=== PATIENT | female | born 1930 | race Caucasian/White ===

== ENCOUNTER → 2018-03-11 13:34 | Emergency (ER) | payer MEDICARE, MEDICAID ==
[2018-03-11 14:23] LABS: ABS Basophils 0.1 10^3/ul (0-0.2); ABS Eosinophils 0.1 10^3/ul (0-0.6); ABS Lymphocytes 1.9 10^3/ul (1.0-4.8); ABS Monocytes 0.6 10^3/ul (0-0.8); ABS Neutrophils 4.8 10^3/ul (1.5-7.7); ABS Nucleated RBC 0 10^3/ul; Eosinophil % 1.6 %; Hematocrit 44 % (35-47); Hemoglobin 14.6 g/dl (12.0-16.0); Lymphocyte % 25.5 %; Mean Corpuscular HGB Conc 33 g/dl (31-36); Mean Corpuscular Hemoglobin 30 pg (27-31); Mean Corpuscular Volume 92 fL (80-97); Mean Platelet Volume 7.9 fL (7.4-10.4); Nucleated Red Blood Cells % 0.1; Platelet Count 251 10^3/ul (150-450); Red Blood Count 4.81 10^6/ul (4.00-5.40); Red Cell Distribution Width 13 % (10.5-15); White Blood Count 7.5 10^3/ul (3.5-10.8)
[2018-03-11 14:38] LABS: Urine Appearance Clear; Urine Blood Negative (Negative); Urine Color Yellow; Urine Ketones Negative (Negative); Urine Protein Negative (Negative); Urine Specific Gravity 1.014 (1.010-1.030); Urine Urobilinogen Negative (Negative)
[2018-03-11 14:48] LABS: EGFR Non-African American 45.3 (>60)
--- NOTE | 2018-03-11 16:03 | ED ---
Neurological HPI - HPI Summary HPI Summary: Patient is a 88 y/o F presenting to ED via ambulance with concerns of possible seizure. Patient is a resident of [facility], staff called EMS. At baseline, patient is capable of walking and talking. Upon arrival, EMS states that patient had feet and arms twitching. EMS reports BG of 102, state that patient denies pain but did state that she did not feel good. EKG was normal per EMS. PMHx of malignant melanoma, tumor removal at right face. Upon arrival, patient is oriented to person only. On triage, pain is denied, nothing is noted to aggravate/alleviate Sx. Home medications and allergies are reviewed. - History of Current Complaint Chief Complaint: EDAltMentalStatus Stated Complaint: AMS Time Seen by Provider: 03/11/18 13:39 Hx Obtained From: Patient Onset/Duration: Sudden Onset, Still Present Timing: Constant Current Severity: None - pain denied Neurological Deficit Location: Generalized - feet and arms twitching Pain Intensity: 0 Pain Scale Used: 0-10 Numeric - 0/10 Character: Other: - feet and arms twitching, oriented only to person Aggravating: Nothing Alleviating: Nothing Associated Signs and Symptoms: Positive: Confusion - oriented only to person - Allergy/Home Medications Allergies/Adverse Reactions: Allergies Allergy/AdvReac Type Severity Reaction Status Date / Time No Known Allergies Allergy Verified 03/11/18 13:57 PMH/Surg Hx/FS Hx/Imm Hx Sensory History: Denies: Hx Legally Blind, Hx Deafness Opthamlomology History: Denies: Hx Legally Blind EENT History: Denies: Hx Deafness Infectious Disease History: No Infectious Disease History: Denies: Traveled Outside the [place] in Last 30 Days - Family History Known Family History: Negative: Blood Disorder - Social History Alcohol Use: unknown Substance Use Type: Reports: None Smoking Status (MU): Unknown if Ever Smoked Review of Systems Negative: Fever - on vitals, temp is 98.2 F Neurological: Other - feet and arms twitching, oriented only to person All Other Systems Reviewed And Are Negative: Yes Physical Exam - Summary Physical Exam Summary: Appearance: Well-appearing, Well-nourished, lying in bed comfortably Skin: Warm, dry, no obvious rash; healing surgical wound at left check with swelling and ecchymosis, conjunctiva inflammation associated with it Eyes: sclera anicteric, no conjunctival pallor ENT: mucous membranes moist, pharynx appears normal Neck: Supple, nontender Respiratory: Clear to auscultation, no signs of respiratory distress Cardiovascular: Normal S1, S2. No murmurs. Normal distal pulses in tibial and radial bilaterally. Abdomen: Soft, nontender, normal active bowel sounds present Musculoskeletal: Normal, Strength/ROM Intact Neurological: knows name, not place, no focal motor deficits. No aphasia, reflexes are normal; GCS 15, NIH 0 Psychiatric: affect is normal, does not appear anxious or depressed Triage Information Reviewed: Yes Vital Signs On Initial Exam: Initial Vitals Temp Pulse Resp BP Pulse Ox 98.2 F 64 20 170/76 99 03/11/18 13:50 03/11/18 13:50 03/11/18 13:50 03/11/18 13:50 03/11/18 13:50 Vital Signs Reviewed: Yes - Kris Coma Scale Best Eye Response: 4 - Spontaneous Best Motor Response: 6 - Obeys Commands Best Verbal Response: 5 - Oriented Coma Scale Total: 15 Diagnostics - Vital Signs Vital Signs Temp Pulse Resp BP Pulse Ox 03/11/18 15:00 66 20 100 03/11/18 14:54 66 17 153/65 99 03/11/18 14:52 66 19 152/72 99 03/11/18 14:25 66 19 167/80 99 03/11/18 14:00 63 17 100 03/11/18 13:54 64 170/76 99 03/11/18 13:52 63 98 03/11/18 13:50 98.2 F 64 20 170/76 99 - Laboratory Lab Results: Lab Results 03/11/18 03/11/18 03/11/18 Range/Units 14:07 14:07 14:07 WBC 7.5 (3.5-10.8) 10^3/ul RBC 4.81 (4.00-5.40) 10^6/ul Hgb 14.6 (12.0-16.0) g/dl Hct 44 (35-47) % MCV 92 (80-97) fL MCH 30 (27-31) pg MCHC 33 (31-36) g/dl RDW 13 (10.5-15) % Plt Count 251 (150-450) 10^3/ul MPV 7.9 (7.4-10.4) fL Neut % (Auto) 63.6 % Lymph % (Auto) 25.5 % Troup % (Auto) 7.6 % Eos % (Auto) 1.6 % Baso % (Auto) 1.7 % Absolute Neuts (auto) 4.8 (1.5-7.7) 10^3/ul Absolute Lymphs (auto) 1.9 (1.0-4.8) 10^3/ul Absolute Monos (auto) 0.6 (0-0.8) 10^3/ul Absolute Eos (auto) 0.1 (0-0.6) 10^3/ul Absolute Basos (auto) 0.1 (0-0.2) 10^3/ul Absolute Nucleated RBC 0 10^3/ul Nucleated RBC % 0.1 Sodium 143 (135-145) mmol/L Potassium 4.3 (3.5-5.0) mmol/L Chloride 106 (101-111) mmol/L Carbon Dioxide 28 (22-32) mmol/L Anion Gap 9 (2-11) mmol/L BUN 26 H (6-24) mg/dL Creatinine 1.13 H (0.51-0.95) mg/dL Est GFR ( Amer) 54.9 (>60) Est GFR (Non-Af Amer) 45.3 (>60) BUN/Creatinine Ratio 23.0 H (8-20) Glucose 77 (70-100) mg/dL Lactic Acid 1.3 (0.5-2.0) mmol/L Calcium 10.4 H (8.6-10.3) mg/dL Total Bilirubin 0.40 (0.2-1.0) mg/dL AST 11 L (13-39) U/L ALT 7 (7-52) U/L Alkaline Phosphatase 92 (34-104) U/L Troponin I 0.00 (<0.04) ng/mL Total Protein 6.8 (6.4-8.9) g/dL Albumin 3.9 (3.2-5.2) g/dL Globulin 2.9 (2-4) g/dL Albumin/Globulin Ratio 1.3 (1-3) Urine Color Urine Appearance Urine pH (5-9) Ur Specific Smilax (1.010-1.030) Urine Protein (Negative) Urine Ketones (Negative) Urine Blood (Negative) Urine Nitrate (Negative) Urine Bilirubin (Negative) Urine Urobilinogen (Negative) Ur Leukocyte Esterase (Negative) Urine Glucose (Negative) 03/11/18 Range/Units 14:23 WBC (3.5-10.8) 10^3/ul RBC (4.00-5.40) 10^6/ul Hgb (12.0-16.0) g/dl Hct (35-47) % MCV (80-97) fL MCH (27-31) pg MCHC (31-36) g/dl RDW (10.5-15) % Plt Count (150-450) 10^3/ul MPV (7.4-10.4) fL Neut % (Auto) % Lymph % (Auto) % Troup % (Auto) % Eos % (Auto) % Baso % (Auto) % Absolute Neuts (auto) (1.5-7.7) 10^3/ul Absolute Lymphs (auto) (1.0-4.8) 10^3/ul Absolute Monos (auto) (0-0.8) 10^3/ul Absolute Eos (auto) (0-0.6) 10^3/ul Absolute Basos (auto) (0-0.2) 10^3/ul Absolute Nucleated RBC 10^3/ul Nucleated RBC % Sodium (135-145) mmol/L Potassium (3.5-5.0) mmol/L Chloride (101-111) mmol/L Carbon Dioxide (22-32) mmol/L Anion Gap (2-11) mmol/L BUN (6-24) mg/dL Creatinine (0.51-0.95) mg/dL Est GFR ( Amer) (>60) Est GFR (Non-Af Amer) (>60) BUN/Creatinine Ratio (8-20) Glucose (70-100) mg/dL Lactic Acid (0.5-2.0) mmol/L Calcium (8.6-10.3) mg/dL Total Bilirubin (0.2-1.0) mg/dL AST (13-39) U/L ALT (7-52) U/L Alkaline Phosphatase (34-104) U/L Troponin I (<0.04) ng/mL Total Protein (6.4-8.9) g/dL Albumin (3.2-5.2) g/dL Globulin (2-4) g/dL Albumin/Globulin Ratio (1-3) Urine Color Yellow Urine Appearance Clear Urine pH 6.0 (5-9) Ur Specific Smilax 1.014 (1.010-1.030) Urine Protein Negative (Negative) Urine Ketones Negative (Negative) Urine Blood Negative (Negative) Urine Nitrate Negative (Negative) Urine Bilirubin Negative (Negative) Urine Urobilinogen Negative (Negative) Ur Leukocyte Esterase Negative (Negative) Urine Glucose Negative (Negative) Result Diagrams: 03/11/18 14:07 03/11/18 14:07 Lab Statement: Any lab studies that have been ordered have been reviewed, and results considered in the medical decision making process. - CT BRAIN CT CT Interpretation Completed By: Radiologist Summary of CT Findings: IMPRESSION: 1. Age-appropriate findings include involutional changes as well as evidence of chronic. microvascular disease. There is a more focal area of hypoattenuation involving the left. frontal lobe and basal ganglia which could be a more acute focus of infarction and lacunar. infarction, respectively. There are no prior brain CTs for comparison to comment on. chronicity of this appearance. The patient is exhibiting focal neurologic deficits. superior characterization can be made with MRI of the brain. 2. Incidentally noted is bilateral cerumen impaction of the external auditory canals. Please correlate to auditory examination and/or direct visualization. This report was reviewed by ED physician. - EKG 1355 Cardiac Rate: NL - rate of 63 bpm EKG Rhythm: Sinus Rhythm Summary of EKG Findings: Normal EKG: NSR at 63 BPM, P waves, QRS complex, and T waves are within normal limits, T waves and intervals are normal, no ischemic changes. This is a normal EKG NIH Scale - NIH Scale Level of Consciousness: Alert/Keenly Responsive Ask Patient the Month and His/Her Age: Both Correct Ask Pt to Open/Close Eyes and Car Body Mechanic/Release Non-Paretic Hand: Both Correctly Best Gaze (Only Horizontal Eye Movement): Normal Visual Field Testing: No Visual Loss Facial Paresis-Pt to Smile & Close Eyes or Grimace Symmetry: Normal/Symmetrical Motor Function - Right Arm: No Drift-Holds 10 Seconds Motor Function - Left Arm: No Drift-Holds 10 Seconds Motor Function - Right Leg: No Drift-Holds 10 Seconds Motor Function - Left Leg: No Drift-Holds 10 Seconds Limb Ataxia-Must be out of Proportion to Weakness Present: Absent Sensory (Use Pinprick to Test Arms/Legs/Trunk/Face): Normal Best Language (Describe Picture, Name Items): No Aphasia Dysarthria (Read Several Words): Normal Extinction and Inattention: No Abnormality Total Score: 0 Course/Dx - Course Course Of Treatment: Patient is a 88 y/o F presenting to ED via ambulance with concerns of possible seizure. Patient is a resident of [facility], staff called EMS. At baseline, patient is capable of walking and talking. Upon arrival, EMS states that patient had feet and arms twitching. EMS reports BG of 102, state that patient denies pain but did state that she did not feel good. EKG was normal per EMS. PMHx of malignant melanoma, tumor removal at right face. Upon arrival, patient is oriented to person only. On physical exam, healing surgical wound in left check with swelling and ecchymosis, conjunctiva inflammation associated with it, knows name, not place, no focal motor deficits. No aphasia, reflexes are normal. Labs showed BUN 26, creatinine 1.13, BUN/creatinine 23, AST 11, trop 0. UA negative. Normal EKG: NSR at 63 BPM, P waves, QRS complex, and T waves are within normal limits, T waves and intervals are normal, no ischemic changes. This is a normal EKG. BRAIN CT IMPRESSION: 1. Age- appropriate findings include involutional changes as well as evidence of chronic. microvascular disease. There is a more focal area of hypoattenuation involving the left. frontal lobe and basal ganglia which could be a more acute focus of infarction and lacunar. infarction, respectively. There are no prior brain CTs for comparison to comment on. chronicity of this appearance. The patient is exhibiting focal neurologic deficits. superior characterization can be made with MRI of the brain. 2. Incidentally noted is bilateral cerumen impaction of the external auditory canals. Please correlate to auditory examination and/or direct visualization. Patient will be discharged back to [facility]. 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 Her son is in agreement with this plan. - Diagnoses Provider Diagnoses: Syncope Discharge - Sign-Out/Discharge Documenting (check all that apply): Patient Departure - discharge - Discharge Plan Condition: Improved Disposition: HOME Patient Education Materials: Syncope (ED) Referrals: [facility] [Outside] Additional Instructions: Return to ED for any new or worsening symptoms. - Billing Disposition and Condition Condition: IMPROVED Disposition: Home - Attestation Statements Document Initiated by Karen: Yes Documenting Scribe: BRANNON BALBUENA Provider For Whom Karen is Documenting (Include Credential): MANGO MELVIN MD Scribe Attestation: IBRANNON , scribed for MANGO MELVIN MD on 03/12/18 at 1017. Scribe Documentation Reviewed: Yes Provider Attestation: The documentation as recorded by the BRANNON colmenares accurately reflects the service I personally performed and the decisions made by me, MANGO MELVIN MD Status of Scribe Document: Viewed
[2018-03-11 16:14] VITALS: BP 140/61
== END | disposition home or self-care (01) ==
LOC: ED 13:34
DX: R55 Syncope and collapse (principal); R25.3 Fasciculation; R41.82 Altered mental status, unspecified; H61.23 Impacted cerumen, bilateral
CPT/HCPCS: 36415; 70450; 80053; 81003; 83605; 84484; 85025; 93005; 99284

== ENCOUNTER 2018-05-21 12:46 | Inpatient (IN) | payer MEDICARE, MEDICAID ==
[2018-05-21] MEDS ORDERED: Albuterol 0.5% CONC NEB.SOL* 5 MG/ML 20 ml BOT INH ONE (13:01)
--- NOTE | 2018-05-21 13:01 | ED ---
Altered Mental Status - HPI Summary HPI Summary: Pt is an 88 y/o F presenting to the ED brought in by EMS for altered mental status. LEVEL 5 CAVEAT: Full history and physical are limited due to pts altered mental status. Per EMS, staff at [facility] and the pts grandson noticed she was not eating this morning like normal or conversing as usual, and her facial droop was different than normal. EMS noted that she was struggling to breathe when supine, but breathing eased a bit when she sat up. - History Of Current Complaint Stated Complaint: ALTERED LEVEL OF CONCIOUSNESS Hx Obtained From: Patient, EMS Hx From Patient Unobtainable Due To: Altered Mental Status Last Known Well Date: unknown Onset/Duration: Still Present Timing: Constant, Lasting Hours Severity Initially: Moderate Severity Currently: Moderate Character: Confusion Aggravating Factor(s): Unknown Alleviating Factor(s): Nothing - Allergies/Home Medications Allergies/Adverse Reactions: Allergies Allergy/AdvReac Type Severity Reaction Status Date / Time No Known Allergies Allergy Verified 05/21/18 14:08 Home Medications: Home Medications Acetaminophen TAB* [Tylenol TAB*] 650 mg PO Q6H PRN 05/21/18 [History Confirmed 05/21/18] Bacitracin OPHTH.OINT* 1 applic BOTH EYES TID 05/21/18 [History Confirmed ] DULoxetine DR CAP* [Cymbalta CAP*] 30 mg PO DAILY 05/21/18 [History Confirmed ] Dextran/Hypromellose/Glycerin [Genteal Tears Liquid Drop 0.1-0.2-0.3 %] 1 drop LEFT EYE QID 05/21/18 [History Confirmed 05/21/18] Donepezil TAB* [Aricept 5 MG TAB*] 10 mg PO BEDTIME 05/21/18 [History Confirmed 05/21/18] Ergocalciferol CAP* [Drisdol CAP*] 50,000 unit PO WEEKLY 05/21/18 [History Confirmed 05/21/18] Hypromellose [Genteal Severe] 0.3 % LEFT EYE BEDTIME 05/21/18 [History Confirmed 05/21/18] Memantine TAB* [Namenda TAB*] 10 mg PO DAILY 05/21/18 [History Confirmed ] Methylcobalamine (NF) [B-12] 1,000 mcg SL MOWEFR 05/21/18 [History Confirmed ] Metoprolol Succinate XL TAB* [Toprol XL TAB*] 100 mg PO DAILY 05/21/18 [History Confirmed 05/21/18] Oseltamivir CAP* [Tamiflu CAP*] 30 mg PO DAILY 05/21/18 [History Confirmed 05/21] Simethicone TAB* [Mylicon TAB*] 80 mg PO Q12H PRN 05/21/18 [History Confirmed ] Valsartan TAB* [Diovan TAB*] 160 mg PO DAILY 05/21/18 [History Confirmed ] amLODIPine TAB* [Norvasc 5 mg TAB*] 10 mg PO DAILY 05/21/18 [History Confirmed 05/21/18] metFORMIN* [Glucophage 500 MG TAB *] 500 mg PO DAILY 05/21/18 [History Confirmed 05/21/18] oxyCODONE/Acetamin 5/325 MG* [Percocet 5/325 TAB*] 1 tab PO Q8H PRN 05/21/18 [ History Confirmed 05/21/18] PMH/Surg Hx/FS Hx/Imm Hx Previously Healthy: Yes Sensory History: Denies: Hx Legally Blind Opthamlomology History: Denies: Hx Legally Blind EENT History: Denies: Hx Deafness - Family History Known Family History: Negative: Blood Disorder - Social History Alcohol Use: unknown Substance Use Type: Reports: None Smoking Status (MU): Unknown if Ever Smoked Review of Systems Negative: Fever Positive: Weakness All Other Systems Reviewed And Are Negative: No Physical Exam - Summary Physical Exam Summary: Appearance: Ill-appearing elderly woman sitting up on stretcher Skin: Warm, dry, no obvious rash Eyes: sclera anicteric, no conjunctival pallor ENT: mucous membranes moist, pharynx appears normal Neck: Supple, nontender Respiratory: Diffuse rhonchi and wheezing bilaterally, in mild to moderate respiratory distress, tachypnic, somewhat labored breathing Cardiovascular: Normal S1, S2. No murmurs. Normal distal pulses in tibial and radial bilaterally. Abdomen: Soft, nontender, normal active bowel sounds present Musculoskeletal: Normal, Strength/ROM Intact Neurological: A&Ox3, awake and alert, mentation is normal, speech is fluent and appropriate. No focal motor deficit, smiles without discernible asymmetry in facial muscles, no drift in arms, seems diffusely weak. Psychiatric: affect is normal, does not appear anxious or depressed Triage Information Reviewed: Yes Vital Signs Reviewed: Yes Completion Of Physical Exam Limited Due To: Level 5 Diagnostics - Laboratory Result Diagrams: 05/27/18 05:00 05/27/18 05:00 Lab Statement: Any lab studies that have been ordered have been reviewed, and results considered in the medical decision making process. - Radiology CXR Radiology Interpretation Completed By: Radiologist Summary of Radiographic Findings: Hyperinflation, consistent with COPD. No active cardiopulmonary disease. ED physician has reviewed this report. - EKG 1312 Cardiac Rate: NL EKG Rhythm: Sinus Rhythm ST Segment: Normal Ectopy: None Summary of EKG Findings: No ischemic changes. Altered Mental Statu Course/Dx - Course Course Of Treatment: Pt is an 88 y/o F presenting to the ED brought in by EMS for altered mental status. LEVEL 5 CAVEAT: Full history and physical are limited due to pts altered mental status. Per EMS, staff at [facility] and the pts grandson noticed she was not eating this morning like normal or conversing as usual, and her facial droop was different than normal. Spoke with the patient's grandson, Stanley, who is her healthcare proxy, and he stated that he does not want intubation or CPR done. CXR shows hyperinflation c/w COPD, and EKG shows NSR. - Diagnoses Provider Diagnoses: Altered mental status Discharge - Sign-Out/Discharge Documenting (check all that apply): Patient Departure - Discharge Plan Condition: Fair Disposition: ADMITTED TO [facility] - Billing Disposition and Condition Condition: FAIR Disposition: Admitted to [facility] - Attestation Statements Document Initiated by Scribe: Yes Documenting Scribe: Katie Gaspar Provider For Whom Karen is Documenting (Include Credential): Virgilio Salcedo MD. Scribe Attestation: Katie Kyle, valdezed for Virgilio Salcedo MD. on 05/27/18 at 1631. Scribe Documentation Reviewed: Yes Provider Attestation: The documentation as recorded by the scribe, Katie Gaspar accurately reflects the service I personally performed and the decisions made by me, Virgilio Salcedo MD. Status of Scribe Document: Viewed Consult Consult: [id number] - Spoke with Dr. Nevarez who will be the accepting physician for the pt to [facility].
[2018-05-21 13:29] LABS: ABS Basophils 0.1 10^3/ul (0-0.2); ABS Eosinophils 0.1 10^3/ul (0-0.6); ABS Lymphocytes 1.6 10^3/ul (1.0-4.8); ABS Monocytes 0.6 10^3/ul (0-0.8); ABS Neutrophils 8.3 10^3/ul (1.5-7.7); ABS Nucleated RBC 0 10^3/ul; Eosinophil % 1.2 %; Hematocrit 48 % (35-47); Hemoglobin 16.1 g/dl (12.0-16.0); Lymphocyte % 14.8 %; Mean Corpuscular HGB Conc 34 g/dl (31-36); Mean Corpuscular Hemoglobin 31 pg (27-31); Mean Corpuscular Volume 91 fL (80-97); Mean Platelet Volume 7.8 fL (7.4-10.4); Nucleated Red Blood Cells % 0.4; Platelet Count 241 10^3/ul (150-450); Red Blood Count 5.26 10^6/ul (4.00-5.40); Red Cell Distribution Width 14 % (10.5-15); White Blood Count 10.7 10^3/ul (3.5-10.8)
[2018-05-21 13:53] LABS: Albumin 4.5 g/dL (3.2-5.2); Albumin/Globulin Ratio 1.4 (1-3); BUN/Creatinine Ratio 23.6 (8-20); Calcium 10.5 mg/dL (8.6-10.3); EGFR African American 49.7 (>60); EGFR Non-African American 41.1 (>60); Globulin 3.2 g/dL (2-4); Potassium 4.4 mmol/L (3.5-5.0); Total Bilirubin 0.5 mg/dL (0.2-1.0); Total Protein 7.7 g/dL (6.4-8.9)
[2018-05-21] MEDS ORDERED: Azithromycin IV(*) 500 MG in NS 0.9% 250 ML* 250 ML IVPB ONE (13:55)
[2018-05-21] MEDS ORDERED: methylPREDNISolone 125 MG* 2 ML VIAL IV ONE (13:55)
[2018-05-21] MEDS ORDERED: cefTRIAXone(*) 1 GM in NS 0.9% 50 ML* 50 ML IVPB ONE (13:55)
[2018-05-21 14:15] LABS: Influenza A Molecular NEGATIVE (Negative); Influenza B Molecular NEGATIVE (Negative)
[2018-05-21] MEDS ORDERED: Acetaminophen TAB* 325 MG PO PRN (17:09)
[2018-05-21] MEDS ORDERED: Albuterol 2.5 MG/3 ML NEB.SOL* (0.083%) INH PRN (17:09)
[2018-05-21] MEDS ORDERED: Simethicone TAB* 80 MG TAB.CHEW PO PRN (17:13)
[2018-05-21] MEDS ORDERED: Dextrose 50% Syringe 50 ML* 25 GM/50 ML SYRINGE IV PUSH PRN (17:19)
[2018-05-21] MEDS ORDERED: METHYLCOBALAMINE SL SCH (18:00)
[2018-05-21] MEDS: NS 0.9% 1000 ML** 1,000 ML IV SCH (19:07)
[2018-05-21] MEDS: Donepezil TAB* 5 MG PO SCH (21:10)
[2018-05-21] MEDS: Artificial Tears* 15 ML BTL LEFT EYE SCH (21:12)
[2018-05-21] MEDS: Bacitracin OPHTH.OINT* 3.5 GM BOTH EYES SCH (21:12)
--- NOTE | 2018-05-21 23:41 | HP ---
HISTORY AND PHYSICAL: ADDENDUM: I am attempting to obtain history and physical from [facility] to obtain further information about the patient's past medical history at this time. The records were currently unavailable. SUE VIOLET, ANTENNA DESIGN ENGINEER [id number]/[facility] #: [id number] [facility]OSPITALCecilia
[2018-05-21] MEDS: Nystatin TOP POWDER* 15 GM BTL TOPICAL SCH (23:45)
[2018-05-21] MEDS: Heparin VIAL(*) 5000 UNITS/ML VIAL (FIVE THOUSAND) SUBCUT SCH (23:45)
--- NOTE | 2018-05-22 02:02 | HP ---
ADDENDUM NOW INCLUDED ON THIS REPORT HISTORY AND PHYSICAL: DATE OF ADMISSION: 05/21/18 PRIMARY CARE PROVIDER: Dr. Holley. ATTENDING PHYSICIAN WHILE IN THE HOSPITAL: Dr. Maria Elena Nevarez * (dictated by Luci Boss NP). CHIEF COMPLAINT: Altered mental status. HISTORY OF PRESENT ILLNESS: History of present illness was obtained from ER and nurse at [facility]. Per the ER record, Ms. Guajardo is an 88-year-old female who is difficult to get a full history and physical due to the patient's altered mental status. Per EMS, staff at [facility], and the patient's grandson noted that the patient was not eating this morning like normal or conversing as usual and her facial droop was different from normal. EMS noted that she was struggling to breathe when she was supine, but the breathing eased a bit when she sat up. Per the staff at [facility], the patient has had a cough x2 days with increased sputum and had decreased responsiveness today, so she was sent for further evaluation due to the concern of pneumonia due to her cough and congestion. It was also reported that the patient had some right facial drooping. The patient does have chronic left facial drooping as she recently had surgical removal of basal cell carcinoma to the left side of her face giving her left eye droop and slight left facial droop. Per staff at [facility] , the patient just had decreased responsiveness today and due to the cough and low-grade fever, she was sent for further evaluation. PAST MEDICAL HISTORY: Past medical history was obtained from [facility] record. She has a history of: 1. Dementia. 2. Hypertension. 3. History of CVA. 4. Type 2 diabetes. PAST SURGICAL HISTORY: Unknown. MEDICATIONS: Home medications were obtained from [facility] medication record. 1. Simethicone 80 mg p.o. q.12 hours as needed. 2. Percocet 1 tab p.o. q.8 hours as needed. 3. Acetaminophen 650 mg p.o. q.6 hours as needed. 4. Tamiflu 30 mg p.o. daily x2 more doses. 5. Gentle Tears 1 drop to the left eye 4 times a day. 6. GenTeal Severe 0.3% left eye at bedtime. 7. Bacitracin ointment apply to both eyes t.i.d.. 8. isdol cap 50,000 units p.o. weekly. 9. Vitamin B12 1000 mcg Saturday, Saturday, and Saturday. 10. Diovan 160 mg p.o. daily. 11. Metoprolol succinate 100 mg p.o. daily. 12. Glucophage 500 mg p.o. daily. 13. Namenda 10 mg p.o. daily. 14. Norvasc 10 mg p.o. daily. 15. Cymbalta 30 mg p.o. daily. 16. Aricept 10 mg at bedtime. ALLERGIES: No known drug allergies. FAMILY HISTORY: Unknown. SOCIAL HISTORY: Unknown. She does have a DNR, MOLST form on her transfer record from [facility]. Her healthcare proxies are her sons, Gilson Guajardo Sr. and Gilson Guajardo Jr. REVIEW OF SYSTEMS: Unobtainable due to the patient's level of altered mental status. The patient does open eyes to name and does respond no when asked if she has any pain, but closes her eyes and drifts off to sleep. She appears to be very fatigued. PHYSICAL EXAMINATION CONSTITUTIONAL: Ms. Guajardo is an elderly female resting on the stretcher in the emergency room. She does not appear to be in any acute respiratory distress. She is lethargic. She does wake to verbal stimuli and does open her eyes. She follows some commands. HEENT: Head is atraumatic, normocephalic. Eyes: EOMs are intact. Sclerae are anicteric and not pale. Oral mucosa appear to be moist. NECK: Supple. LUNGS: Diminished throughout bilaterally with a few scattered rhonchi in the bases. She does have a moist cough. CARDIAC: S1, S2. Regular rate and rhythm. No murmurs, rubs, or gallops. ABDOMEN: Soft. There is no grimacing with palpation of the abdomen. Bowel sounds are present x4. EXTREMITIES: She can move all 4 extremities, but appears to be weak. SKIN: Intact. NEUROLOGIC: She is lethargic. She does open her eyes to verbal stimuli. She does follow some commands. She was able to raise her arms up and hold them. She does have a tremor noted to the left arm. There was no pronator drift. Orientation, unable to determine due to the patient's altered mental status. DIAGNOSTIC STUDIES AND LABORATORY DATA: WBCs are 10.7, RBCs 5.26, hemoglobin 16.1, hematocrit was 48, platelet count was 241. Venous blood gas, pH was 7.31 , venous pCO2 was 57, pO2 was less than 38, HCO3 was 24.4, O2 saturation was 43.7. Sodium 136, potassium 4.4, chloride 102, carbon dioxide was 29, anion gap was 5, BUN 29, creatinine 1.23, glucose was 92, lactic acid 1.2, calcium was 10.5. ASTs were 12, ALTs were 6, alkaline phosphatase was 115, troponin was 0.00. Flu A and B were negative. The patient had a chest x-ray. Hyperinflation consistent with COPD, no active cardiopulmonary disease was seen. She did have a CT of the brain, which showed chronic findings similar to 03/11/18. CT of the brain without CT-apparent acute intracranial abnormality. No evidence of intracranial hemorrhage. She had an electrocardiogram which showed sinus rhythm at a rate of 78. ASSESSMENT AND PLAN: Ms. Guajardo is an 88-year-old female with past medical history significant for dementia, hypertension, history of cerebrovascular accident, and type diabetes, who presented to the emergency room with altered mental status, cough, and congestion for 2 days. She will be admitted inpatient for: 1. Altered mental status. I suspect this is related to underlying pneumonia. The patient does have a harsh moist cough and was hypoxic on room air. The patient was placed on nasal cannula to maintain O2 saturations greater than 90% . There was initially report of right facial droop, which is not apparent at the time of evaluation. I did obtain a CT of the brain, which showed no acute intracranial hemorrhage or any acute changes. The patient does have chronic left-sided facial droop per staff at [facility] due to recent surgery for basal cell carcinoma. She does have lower eyelid droop on the left. 2. Pneumonia. I will continue with nebulizer treatments. I will give her azithromycin, ceftriaxone to treat her pneumonia. I will get a urine for legionella and S. pneumoniae as well as a UA and urine culture, which is currently pending. 3. Hypertension. Continue on Norvasc as previously prescribed. 4. Dementia. Will continue on Aricept and Namenda as previously prescribed. 5. Diabetes. I will place her on lispro sliding scale with Accu-Cheks a.c. 6. Recent basal cell carcinoma surgery to the left face. We will continue with bacitracin ointment to both eyes t.i.d. as well as eyedrops as previously prescribed. 7. FEN. She can have a consistent carb diet. 8. Code status. She is a DNR/DNI per the grandson, Gilson JangJr clayton. 9. DVT prophylaxis. I will place her on heparin subcu. TIME SPENT: Time spent on this admission was 60 minutes, greater than half that time was spent at the bedside performing my physical exam, obtaining the history and physical from [facility], and emergency room records, the other half of the time was spent implementing my plan of care. I have discussed this with my attending, Dr. Maria Elena Nevarez. She is in agreement with my plan. LUCI BOSS NP ADDENDUM: I am attempting to obtain history and physical from [facility] to obtain further information about the patient's past medical history at this time. The records were currently unavailable. LUCI BOSS NP [id number]/CPS #: [id number]/CPS #: [id number] ALICIA
[2018-05-22 02:32] LABS: Urine Appearance Clear; Urine Bilirubin Negative (Negative); Urine Blood Negative (Negative); Urine Color Yellow; Urine Glucose Negative (Negative); Urine Ketones Negative (Negative); Urine Nitrite Negative (Negative); Urine Protein Negative (Negative); Urine Specific Gravity 1.016 (1.010-1.030); Urine Urobilinogen Negative (Negative)
[2018-05-22] MEDS: Heparin VIAL(*) 5000 UNITS/ML VIAL (FIVE THOUSAND) SUBCUT SCH ×3 (05:17→23:06)
[2018-05-22] MEDS: NS 0.9% 1000 ML** 1,000 ML IV SCH (05:22)
[2018-05-22 06:59] LABS: ABS Basophils 0 10^3/ul (0-0.2); ABS Eosinophils 0 10^3/ul (0-0.6); ABS Lymphocytes 0.9 10^3/ul (1.0-4.8); ABS Monocytes 0.3 10^3/ul (0-0.8); ABS Neutrophils 14.8 10^3/ul (1.5-7.7); ABS Nucleated RBC 0 10^3/ul; Eosinophil % 0 %; Hematocrit 43 % (35-47); Hemoglobin 13.9 g/dl (12.0-16.0); Lymphocyte % 5.5 %; Mean Corpuscular HGB Conc 32 g/dl (31-36); Mean Corpuscular Hemoglobin 30 pg (27-31); Mean Corpuscular Volume 92 fL (80-97); Mean Platelet Volume 8.5 fL (7.4-10.4); Nucleated Red Blood Cells % 0.1; Platelet Count 223 10^3/ul (150-450); Red Blood Count 4.71 10^6/ul (4.00-5.40); Red Cell Distribution Width 14 % (10.5-15)
[2018-05-22 07:16] LABS: BUN/Creatinine Ratio 29.3 (8-20); Calcium 9.6 mg/dL (8.6-10.3); EGFR African American 53.2 (>60); Potassium 4.9 mmol/L (3.5-5.0)
[2018-05-22] MEDS: Insulin LISPRO* 1 UNITS UNIT SUBCUT SCH ×3 (09:09→19:48)
[2018-05-22] MEDS: Artificial Tears* 15 ML BTL LEFT EYE SCH ×4 (09:10→23:08)
[2018-05-22] MEDS: Memantine TAB* 10 MG PO SCH (09:11)
[2018-05-22] MEDS: Oseltamivir CAP* 30 MG CAP PO SCH (09:11)
[2018-05-22] MEDS: Metoprolol Succinate XL TAB* 100 MG PO SCH (09:11)
[2018-05-22] MEDS: Valsartan TAB* 160 MG PO SCH (09:11)
[2018-05-22] MEDS: Bacitracin OPHTH.OINT* 3.5 GM BOTH EYES SCH ×3 (09:11→23:08)
[2018-05-22] MEDS: DULoxetine DR CAP* 30 MG CAP.DR PO SCH (09:12)
[2018-05-22] MEDS: amLODIPine TAB* 5 MG PO SCH (09:12)
[2018-05-22] MEDS: Nystatin TOP POWDER* 15 GM BTL TOPICAL SCH ×2 (09:12→23:06)
[2018-05-22] MEDS ORDERED: Furosemide IV* 10 MG/ML VIAL (40 MG) ONE (14:19)
--- NOTE | 2018-05-22 14:44 | PN ---
Subjective Date of Service: 05/22/18 Interval History: Pt is unable to tell me how she is feeling. I was called emergently by the patient's nurse that the patient was hypoxic with an O2 saturation in the 60's on 10L O2. Objective Active Medications: Acetaminophen (Tylenol Tab*) 650 mg PO Q4H PRN PRN Reason: FEVER/PAIN Albuterol (Ventolin 2.5 Mg/3 Ml Neb.Janel*) 2.5 mg INH [id number] AWAKE PRN PRN Reason: sob/wheezing Amlodipine Besylate (Norvasc Tab*) 10 mg PO DAILY [facility] Last Admin: 05/22/18 09:12 Dose: 10 mg Bacitracin (Bacitracin Ophth.Oint*) 1 applic BOTH EYES TID [facility] Last Admin: 05/22/18 09:11 Dose: 1 drop Dextrose (D50w Syringe 50 Ml*) 12.5 gm IV PUSH .FOR FS < 60 - SS PRN PRN Reason: FS < 60 Donepezil HCl (Aricept Tab*) 10 mg PO BEDTIME [facility] Last Admin: 05/21/18 21:10 Dose: Not Given Duloxetine HCl (Cymbalta Cap*) 30 mg PO DAILY [facility] Last Admin: 05/22/18 09:12 Dose: 30 mg Heparin Sodium (Porcine) (Heparin Vial(*)) 5,000 units SUBCUT Q8HR [facility] Last Admin: 05/22/18 05:17 Dose: 5,000 units Ceftriaxone Sodium 1 gm/ (Sodium Chloride) 50 mls @ 200 mls/hr IVPB Q24H [facility]ID Azithromycin 500 mg/ Sodium (Chloride) 250 mls @ 250 mls/hr IVPB Q24H [facility] Insulin Human Lispro (Humalog*) 0 units SUBCUT AC [facility]; Protocol Last Admin: 05/22/18 13:04 Dose: 1 unit Memantine (Namenda Tab*) 10 mg PO DAILY [facility] Last Admin: 05/22/18 09:11 Dose: 10 mg Metoprolol Succinate (Toprol Xl Tab*) 100 mg PO DAILY [facility] Last Admin: 05/22/18 09:11 Dose: 100 mg Natural Dietary Supplement (B-12) 1,000 mcg SL MOWEFR [facility] Last Admin: 05/21/18 19:07 Dose: Not Given Nystatin (Nystatin Top Powder*) 1 applic TOPICAL BID [facility] Last Admin: 02/14/19 09:12 Dose: 1 applic Oseltamivir Phosphate (Tamiflu Cap*) 30 mg PO DAILY [facility] Stop: 05/23/18 09:01 Last Admin: 05/22/18 09:11 Dose: 30 mg Polyvinyl Alcohol (Polyvinyl Alcohol 1.4% Opth*) 1 drop LEFT EYE QID [facility] Last Admin: 05/22/18 13:04 Dose: 1 drop Simethicone (Mylicon Tab*) 80 mg PO Q12H PRN PRN Reason: INDIGESTION Valsartan (Diovan Tab*) 160 mg PO DAILY [facility] Last Admin: 05/22/18 09:11 Dose: 160 mg Vital Signs - 8 hr 05/22/18 05/22/18 07:35 08:11 Temperature 98.6 F Pulse Rate 78 Respiratory 17 16 Rate Blood Pressure 116/49 (mmHg) O2 Sat by Pulse 94 Oximetry Oxygen Devices in Use Now: Simple Face Mask Appearance: Elderly female sitting up in bed, with central facial cyanosis, not tachypnic, and in no distress. Eyes: No Scleral Icterus Ears/Nose/Mouth/Throat: Mucous Membranes Moist Respiratory: Symmetrical Chest Expansion and Respiratory Effort, - - diffuse crackles with rattling breath sounds heard without the stethoscope Cardiovascular: NL Sounds; No Murmurs; No JVD, No Edema, - - tachycardic Abdominal: NL Sounds; No Tenderness; No Distention Extremities: No Clubbing, Cyanosis Skin: No Rash or Ulcers Neurological: - - alert, does not speak much Result Diagrams: 05/22/18 06:18 05/22/18 06:18 Microbiology and Other Data: Microbiology 05/21/18 12:47 Aerobic Blood Culture - Preliminary Blood Venous No Growth Day 1 Anaerobic Blood Culture - Preliminary No Growth Day 1 05/21/18 13:21 Aerobic Blood Culture - Preliminary Blood Venous No Growth Day 1 Anaerobic Blood Culture - Preliminary No Growth Day 1 05/22/18 02:00 Legionella Urinary Antigen - Final Urine Negative Legionella Antigen Streptococcus pneumoniae Ag Screen - Final Negative S. pneumo Antigen 05/21/18 20:12 Nasal Screen MRSA (PCR) - Final Nasal Mrsa Not Detected 05/21/18 13:50 Influenza Types A,B Antigen - Final Nasopharyngeal Specimen received for Influenza A/B Molecular testing Assess/Plan/Problems-Billing Ms Guajardo is an 88 yo F who has a h/o dementia, HTN and type II DM who presented to the ER with c/o cough, fever and AMS and was admitted for treatment of possible pneumonia. - Patient Problems (1) Acute CHF Current Visit: Yes Status: Acute Code(s): I50.9 - HEART FAILURE, UNSPECIFIED SNOMED Code(s): 98039013 Comment: Pt this afternoon was found to be in probable acute CHF. IV lasix 40mg and BiPAP initiated. Transferred to the ICU for closer nursing care. Will get echo. (2) Pneumonia Current Visit: Yes Status: Acute Code(s): J18.9 - PNEUMONIA, UNSPECIFIED ORGANISM SNOMED Code(s): 880091270 Comment: Pt has been treated with ceftriaxone and azithromycin for possible pneumonia. WBC count up higher today but she also received IV steroids. Will monitor for continued pneumonia symptoms. (3) HTN (hypertension) Current Visit: Yes Status: Acute Code(s): I10 - ESSENTIAL (PRIMARY) HYPERTENSION SNOMED Code(s): 23896472 Comment: BP is under fair control now. Continue current BP medication regimen. (4) Type II diabetes mellitus Current Visit: Yes Status: Acute Comment: Sugars are under good control despite receiving IV steroids yesterday. Continue to monitor and cover with lispro sliding scale. (5) Dementia Current Visit: Yes Status: Acute Code(s): F03.90 - UNSPECIFIED DEMENTIA WITHOUT BEHAVIORAL DISTURBANCE SNOMED Code(s): 95564295 Comment: Continue aricept and namenda. (6) DVT prophylaxis Current Visit: Yes Status: Acute Code(s): IPJ8071 - SNOMED Code(s): 431565153 Comment: SQ heparin (7) DNR (do not resuscitate) Current Visit: Yes Status: Acute
[2018-05-22 19:54] LABS: Urine Appearance Clear; Urine Bilirubin Negative (Negative); Urine Blood Negative (Negative); Urine Color Straw; Urine Glucose Negative (Negative); Urine Ketones Negative (Negative); Urine Nitrite Negative (Negative); Urine Protein Negative (Negative); Urine Specific Gravity 1.008 (1.010-1.030); Urine Urobilinogen Negative (Negative)
[2018-05-22] MEDS: cefTRIAXone(*) 1 GM in NS 0.9% 50 ML* 50 ML IVPB SCH (20:20)
[2018-05-22] MEDS: Azithromycin IV(*) 500 MG in NS 0.9% 250 ML* 250 ML IVPB SCH (20:55)
[2018-05-22] MEDS: Donepezil TAB* 5 MG PO SCH (22:46)
[2018-05-23] MEDS: Heparin VIAL(*) 5000 UNITS/ML VIAL (FIVE THOUSAND) SUBCUT SCH ×3 (06:27→22:11)
[2018-05-23 06:45] LABS: ABS Basophils 0 10^3/ul (0-0.2); ABS Eosinophils 0 10^3/ul (0-0.6); ABS Lymphocytes 1.2 10^3/ul (1.0-4.8); ABS Monocytes 0.6 10^3/ul (0-0.8); ABS Neutrophils 11.1 10^3/ul (1.5-7.7); ABS Nucleated RBC 0 10^3/ul; Eosinophil % 0 %; Hematocrit 41 % (35-47); Hemoglobin 13.2 g/dl (12.0-16.0); Lymphocyte % 9.1 %; Mean Corpuscular HGB Conc 32 g/dl (31-36); Mean Corpuscular Hemoglobin 30 pg (27-31); Mean Corpuscular Volume 92 fL (80-97); Mean Platelet Volume 8.2 fL (7.4-10.4); Nucleated Red Blood Cells % 0; Platelet Count 212 10^3/ul (150-450); Red Blood Count 4.48 10^6/ul (4.00-5.40); Red Cell Distribution Width 14 % (10.5-15)
[2018-05-23 07:03] LABS: BUN/Creatinine Ratio 32.4 (8-20); Calcium 9.8 mg/dL (8.6-10.3); EGFR Non-African American 46.3 (>60); Potassium 4.2 mmol/L (3.5-5.0)
--- NOTE | 2018-05-23 08:44 | PN ---
Subjective Date of Service: 05/23/18 Interval History: Pt is feeling ok this AM. Last night the BiPAP was tried to be removed but she immediately desaturated. She was placed back on the BiPAP and has been quiet all night. She denies any SOB or pain. She does not answer any of my other questions. Objective Active Medications: Acetaminophen (Tylenol Tab*) 650 mg PO Q4H PRN PRN Reason: FEVER/PAIN Albuterol (Ventolin 2.5 Mg/3 Ml Neb.Janel*) 2.5 mg INH [id number] AWAKE PRN PRN Reason: sob/wheezing Amlodipine Besylate (Norvasc Tab*) 10 mg PO DAILY [facility] Last Admin: 05/22/18 09:12 Dose: 10 mg Bacitracin (Bacitracin Ophth.Oint*) 1 applic BOTH EYES TID [facility] Last Admin: 05/22/18 23:08 Dose: Not Given Dextrose (D50w Syringe 50 Ml*) 12.5 gm IV PUSH .FOR FS < 60 - SS PRN PRN Reason: FS < 60 Donepezil HCl (Aricept Tab*) 10 mg PO BEDTIME [facility] Last Admin: 05/22/18 22:46 Dose: Not Given Duloxetine HCl (Cymbalta Cap*) 30 mg PO DAILY [facility] Last Admin: 05/22/18 09:12 Dose: 30 mg Heparin Sodium (Porcine) (Heparin Vial(*)) 5,000 units SUBCUT Q8HR [facility] Last Admin: 05/23/18 06:27 Dose: 5,000 units Ceftriaxone Sodium 1 gm/ (Sodium Chloride) 50 mls @ 200 mls/hr IVPB Q24H [facility] Last Admin: 05/22/18 20:20 Dose: 200 mls/hr Azithromycin 500 mg/ Sodium (Chloride) 250 mls @ 250 mls/hr IVPB Q24H [facility] Last Admin: 05/22/18 20:55 Dose: 250 mls/hr Insulin Human Lispro (Humalog*) 0 units SUBCUT AC [facility]; Protocol Last Admin: 05/22/18 19:48 Dose: Not Given Memantine (Namenda Tab*) 10 mg PO DAILY [facility] Last Admin: 05/22/18 09:11 Dose: 10 mg Metoprolol Succinate (Toprol Xl Tab*) 100 mg PO DAILY [facility] Last Admin: 05/22/18 09:11 Dose: 100 mg Natural Dietary Supplement (B-12) 1,000 mcg SL MOWEFR [facility] Last Admin: 05/21/18 19:07 Dose: Not Given Nystatin (Nystatin Top Powder*) 1 applic TOPICAL BID [facility] Last Admin: 05/22/18 23:06 Dose: 1 applic Oseltamivir Phosphate (Tamiflu Cap*) 30 mg PO DAILY [facility] Stop: 05/23/18 09:01 Last Admin: 05/22/18 09:11 Dose: 30 mg Polyvinyl Alcohol (Polyvinyl Alcohol 1.4% Opth*) 1 drop LEFT EYE QID [facility] Last Admin: 05/22/18 23:08 Dose: Not Given Simethicone (Mylicon Tab*) 80 mg PO Q12H PRN PRN Reason: INDIGESTION Valsartan (Diovan Tab*) 160 mg PO DAILY [facility] Last Admin: 05/22/18 09:11 Dose: 160 mg Vital Signs - 8 hr 05/23/18 05/23/18 05/23/18 00:45 01:00 01:01 Temperature 100.9 F 100.9 F 100.9 F Pulse Rate 70 68 69 Respiratory 24 20 22 Rate Blood Pressure 129/76 124/64 (mmHg) O2 Sat by Pulse 96 96 96 Oximetry 05/23/18 05/23/18 05/23/18 01:15 01:30 01:45 Temperature 100.8 F 100.8 F 100.8 F Pulse Rate 71 71 67 Respiratory 23 24 19 Rate Blood Pressure 130/70 127/71 117/75 (mmHg) O2 Sat by Pulse 98 98 97 Oximetry 05/23/18 05/23/18 05/23/18 02:00 02:01 02:15 Temperature 100.8 F 100.8 F 100.6 F Pulse Rate 70 69 69 Respiratory 23 30 18 Rate Blood Pressure 121/93 122/88 (mmHg) O2 Sat by Pulse 97 97 97 Oximetry 05/23/18 05/23/18 05/23/18 02:30 02:45 03:00 Temperature 100.6 F 100.6 F 100.6 F Pulse Rate 65 66 67 Respiratory 21 24 22 Rate Blood Pressure 109/78 124/91 (mmHg) O2 Sat by Pulse 96 96 97 Oximetry 05/23/18 05/23/18 05/23/18 03:01 03:15 03:19 Temperature 100.6 F 100.4 F 100.4 F Pulse Rate 65 67 67 Respiratory 19 23 21 Rate Blood Pressure 113/93 128/93 133/110 (mmHg) O2 Sat by Pulse 97 98 97 Oximetry 05/23/18 05/23/18 05/23/18 03:31 04:00 04:01 Temperature 100.4 F 100.2 F 100.2 F Pulse Rate 66 66 65 Respiratory 22 18 19 Rate Blood Pressure 130/73 86/76 (mmHg) O2 Sat by Pulse 97 98 98 Oximetry 05/23/18 05/23/18 05/23/18 04:05 04:30 05:00 Temperature 99.9 F 100.2 F 100.2 F Pulse Rate 65 62 62 Respiratory 26 20 18 Rate Blood Pressure 128/59 114/59 121/64 (mmHg) O2 Sat by Pulse 99 96 96 Oximetry 05/23/18 05/23/18 05/23/18 05:01 05:30 06:00 Temperature 100.2 F 100.2 F 100.0 F Pulse Rate 60 60 66 Respiratory 17 19 21 Rate Blood Pressure 112/55 (mmHg) O2 Sat by Pulse 96 96 99 Oximetry 05/23/18 05/23/18 06:01 06:31 Temperature 100.0 F 99.9 F Pulse Rate 70 68 Respiratory 22 30 Rate Blood Pressure 150/83 158/68 (mmHg) O2 Sat by Pulse 99 97 Oximetry Oxygen Devices in Use Now: BiPAP Appearance: Elderly female lying in bed, NAD Eyes: No Scleral Icterus Ears/Nose/Mouth/Throat: - - dry tongue noted through the BiPAP mask Respiratory: Symmetrical Chest Expansion and Respiratory Effort, Clear to Auscultation - anteriorly Cardiovascular: NL Sounds; No Murmurs; No JVD, RRR, No Edema Abdominal: NL Sounds; No Tenderness; No Distention Extremities: No Clubbing, Cyanosis Skin: No Nodules or Sclerosis Neurological: - - sleepy but arousable, answers a few questions Result Diagrams: 05/23/18 06:30 05/23/18 06:30 Microbiology and Other Data: Microbiology 05/21/18 12:47 Aerobic Blood Culture - Preliminary Blood Venous No Growth Day 1 Anaerobic Blood Culture - Preliminary No Growth Day 1 05/21/18 13:21 Aerobic Blood Culture - Preliminary Blood Venous No Growth Day 1 Anaerobic Blood Culture - Preliminary No Growth Day 1 05/22/18 02:00 Legionella Urinary Antigen - Final Urine Negative Legionella Antigen Streptococcus pneumoniae Ag Screen - Final Negative S. pneumo Antigen 05/21/18 20:12 Nasal Screen MRSA (PCR) - Final Nasal Mrsa Not Detected 05/21/18 13:50 Influenza Types A,B Antigen - Final Nasopharyngeal Specimen received for Influenza A/B Molecular testing Assess/Plan/Problems-Billing Ms Guajardo is an 88 yo F who has a h/o dementia, HTN and type II DM who presented to the ER with c/o cough, fever and AMS and was admitted for treatment of possible pneumonia. - Patient Problems (1) Acute CHF Current Visit: Yes Status: Acute Code(s): I50.9 - HEART FAILURE, UNSPECIFIED SNOMED Code(s): 51281189 Comment: Pt developed acute hypoxic respiratory failure secondary to pneumonia and acute CHF requiring BiPAP yesterday. She seems much improved today in terms of her respiratory status. She diuresed ~1400ml since the raymond was placed. Echo done this AM and results are pending. May need another dose of IV lasix today if she has increased work of breathing off the BiPAP. Possibly transfer back to [facility] today if she is stable off the BiPAP. (2) Pneumonia Current Visit: Yes Status: Acute Code(s): J18.9 - PNEUMONIA, UNSPECIFIED ORGANISM SNOMED Code(s): 062785414 Comment: Nursing notes the patient has been coughing up thick sputum overnight. Will continue ceftriaxone and azithromycin. Will try to get sputum sample. WBC count trended down slightly today. (3) HTN (hypertension) Current Visit: Yes Status: Acute Code(s): I10 - ESSENTIAL (PRIMARY) HYPERTENSION SNOMED Code(s): 64955201 Comment: BP is under ok control. Continue amlodipine, valsartan and metoprolol. (4) Type II diabetes mellitus Current Visit: Yes Status: Acute Comment: Sugars remain under good control. Continue lispro sliding scale, metformin is on hold. (5) Dementia Current Visit: Yes Status: Acute Code(s): F03.90 - UNSPECIFIED DEMENTIA WITHOUT BEHAVIORAL DISTURBANCE SNOMED Code(s): 35208595 Comment: Continue aricept and namenda. (6) DVT prophylaxis Current Visit: Yes Status: Acute Code(s): PBR0327 - SNOMED Code(s): 653155587 Comment: SQ heparin (7) DNR (do not resuscitate) Current Visit: Yes Status: Acute
--- NOTE | 2018-05-23 09:38 | ECHO ---
Patient: EMA JOHNSON Rec#: [id number] : 1930 Date: 05/23/2018 Age: 88y Height: 157 cm / 61.8 in Weight: 63.3 kg / 139.5 lbs Sex: F BSA: 1.6 Room#: ICU 4 Admit Date#: 05/21/2018 Type: Inpatient Referring: Cleo Vela DO Reading: Flaco Lester DO [place] Transplanter: Sara Pretty RN RDCS CC: Christopher Benitez MD Transthoracic Echocardiogram Indication: CHF BP: 158/68 HR: 68 Rhythm: NSR Findings History: HTN, DM, CVA, dementia Technical Comments: The study quality is fair. The study is technically limited due to poor parasternal windows. Completed at 0900. Left Ventricle: The left ventricular chamber size is normal. Mild to moderate concentric left ventricular hypertrophy is observed. Global left ventricular wall motion and contractility are within normal limits. There is normal left ventricular systolic function. The estimated ejection fraction is greater than 65%. The assessment of diastolic function is non-diagnostic. Left Atrium: The left atrium is mildly dilated. Right Ventricle: The right ventricle is mildly dilated. The right ventricular global systolic function is mildly to moderately reduced. Right Atrium: The right atrium is mild to moderately dilated. Aortic Valve: The aortic valve is trileaflet. The aortic valve leaflets are moderately thickened. Mild aortic leaflet calcification is visualized. There is evidence of aortic sclerosis without stenosis. There is aortic annular calcification. There is no evidence of aortic regurgitation. There is no evidence of aortic stenosis. Mitral Valve: Severe mitral annular calcification present. The mitral valve leaflets are mildly thickened. Mild mitral leaflet calcification is visualized. Mitral valve posterior leaflet calcification is visualized. There is mild mitral regurgitation. There is borderline mitral stenosis. The mean gradient across the mitral valve is 3 mmHg. Tricuspid Valve: The tricuspid valve leaflets are normal. There is trace tricuspid regurgitation. There is evidence of mild pulmonary hypertension. There is no tricuspid stenosis. Pulmonic Valve: The pulmonic valve structure is not well visualized. Pericardium: There is no significant pericardial effusion. A pericardial fat pad is visualized. Aorta: There is no dilatation of the ascending aorta. The aortic arch is not well visualized. There is no dilation of the aortic root. Pulmonary Artery: The main pulmonary artery is not well visualized. Venous: The inferior vena cava appears normal in size. There is less than 50% respiratory change in the inferior vena cava dimension. Conclusions The right ventricular global systolic function is normal. The left ventricular chamber size is normal. Mild to moderate concentric left ventricular hypertrophy is observed. Global left ventricular wall motion and contractility are within normal limits. There is normal left ventricular systolic function at 70% The left atrium is mildly dilated. No functionally significant valvular abnormalities noted The right ventricle is mildly dilated. The right ventricular global systolic function is mildly to moderately reduced. There is evidence of mild pulmonary hypertension. None prior for comparison at time of interpretation Measurements Name Value Normal Range RVDdMajor (2D) 3.5 cm (2.2 - 4.4) RVAW (2D) 1 cm (0.2 - 0.5) RAd ISD 4CH 4.5 cm (3.4 - 4.9) RA (A4C)W 3.3 cm (2.9 - 4.6) IVSd (2D) 1.3 cm (0.6 - 1) LVPWd (2D) 1.3 cm (0.6 - 1) LVIDd (2D) 4.2 cm (3.6 - 5.4) LVIDs (2D) 2.9 cm - LV FS (2D) 31 % (25 - 45) Aortic Annulus 1.9 cm (1.4 - 2.6) Ao root diameter (2D) 2.9 cm (2.1 - 3.5) Ascending Ao 2.9 cm (2.1 - 3.4) LA dimension (AP) 2D 4 cm (2.3 - 3.8) LAd ISD 4CH 4.2 cm (2.9 - 5.3) LA ISD 4CH W 3.8 cm (2.5 - 4.5) Name Value Normal Range LA ESV BP (A/L) index 25.1 ml/m2 - Name Value Normal Range MV E-wave Vmax 1.2 m/sec - MV deceleration time 299 msec - MV A-wave Vmax 1.4 m/sec - MV E:A ratio 0.8 ratio - LV septal e' Vmax 0.07 m/sec - LV lateral e' Vmax 0.05 m/sec - LV E:e' septal ratio 17.1 ratio - LV E:e' lateral ratio 24 ratio - Name Value Normal Range AV Vmax 1.4 m/sec - AV VTI 29.7 cm - AV peak gradient 8 mmHg - AV mean gradient 5 mmHg - LVOT diameter 2 cm - LVOT Vmax 1.2 m/sec - LVOT VTI 24.9 cm - LVOT peak gradient 6 mmHg - LVOT mean gradient 3 mmHg - Name Value Normal Range MV Vmax 1.5 m/sec - MV VTI 46.5 cm - MV peak gradient 10 mmHg - MV mean gradient 3 mmHg - MV PHT 92 msec - MVA (PHT) 2.4 cm2 - MVA (continuity VTI) 1.7 cm2 - Name Value Normal Range TR Vmax 3.1 m/sec - TR peak gradient 38 mmHg - RAP 8 mmHg - RVSP 46 mmHg - IVC diameter 2 cm - Name Value Normal Range PV Vmax 0.63 m/sec -
[2018-05-23] MEDS: Insulin LISPRO* 1 UNITS UNIT SUBCUT SCH ×3 (10:30→17:37)
[2018-05-23] MEDS: Artificial Tears* 15 ML BTL LEFT EYE SCH ×4 (10:52→22:04)
[2018-05-23] MEDS: Nystatin TOP POWDER* 15 GM BTL TOPICAL SCH ×2 (10:53→22:10)
[2018-05-23] MEDS: guaiFENesin ER TAB 600 MG PO SCH ×2 (10:53→22:02)
[2018-05-23] MEDS: Oseltamivir CAP* 30 MG CAP PO SCH (10:53)
[2018-05-23] MEDS: amLODIPine TAB* 5 MG PO SCH (10:53)
[2018-05-23] MEDS: Bacitracin OPHTH.OINT* 3.5 GM BOTH EYES SCH ×3 (10:53→22:04)
[2018-05-23] MEDS: Metoprolol Succinate XL TAB* 100 MG PO SCH (10:53)
[2018-05-23] MEDS: Valsartan TAB* 160 MG PO SCH (13:54)
[2018-05-23] MEDS: DULoxetine DR CAP* 30 MG CAP.DR PO SCH (13:54)
[2018-05-23] MEDS: Memantine TAB* 10 MG PO SCH (13:54)
[2018-05-23] MEDS: cefTRIAXone(*) 1 GM in NS 0.9% 50 ML* 50 ML IVPB SCH (16:48)
[2018-05-23] MEDS: Azithromycin IV(*) 500 MG in NS 0.9% 250 ML* 250 ML IVPB SCH (16:51)
[2018-05-23] MEDS: Donepezil TAB* 5 MG PO SCH (22:02)
[2018-05-24] MEDS: Heparin VIAL(*) 5000 UNITS/ML VIAL (FIVE THOUSAND) SUBCUT SCH ×3 (05:42→21:29)
[2018-05-24] MEDS ORDERED: Albuterol/Ipratropium NEB.SOL* Albuterol 2.5 MG/Ipratropium 0.5 MG 3 ML INH PRN (08:32)
--- NOTE | 2018-05-24 08:40 | PN ---
Subjective Date of Service: 05/24/18 Interval History: Pt on BIPAP overnight.Desaturates without bipap and requiring 10 l oxygen in the daytime.Reports that she is tired and noted to have difficulty breathing and speaking on the BIPAP Objective Active Medications: Acetaminophen (Tylenol Tab*) 650 mg PO Q4H PRN PRN Reason: FEVER/PAIN Albuterol (Ventolin 2.5 Mg/3 Ml Neb.Janel*) 2.5 mg INH [id number] AWAKE PRN PRN Reason: sob/wheezing Albuterol/Ipratropium (Duoneb (Albuterol 2.5 Mg/Ipratropium 0.5 Mg)) 1 neb INH Q4H PRN PRN Reason: SOB/WHEEZING Amlodipine Besylate (Norvasc Tab*) 10 mg PO DAILY [facility] Last Admin: 05/23/18 10:53 Dose: 10 mg Bacitracin (Bacitracin Ophth.Oint*) 1 applic BOTH EYES TID [facility] Last Admin: 05/23/18 22:04 Dose: 1 applic Dextrose (D50w Syringe 50 Ml*) 12.5 gm IV PUSH .FOR FS < 60 - SS PRN PRN Reason: FS < 60 Donepezil HCl (Aricept Tab*) 10 mg PO BEDTIME [facility] Last Admin: 05/23/18 22:02 Dose: 10 mg Duloxetine HCl (Cymbalta Cap*) 30 mg PO DAILY [facility] Last Admin: 05/23/18 13:54 Dose: 30 mg Furosemide (Lasix Iv*) 40 mg IV DAILY [facility] Guaifenesin (Mucinex*) 600 mg PO BID [facility] Last Admin: 05/23/18 22:02 Dose: 600 mg Heparin Sodium (Porcine) (Heparin Vial(*)) 5,000 units SUBCUT Q8HR [facility] Last Admin: 05/24/18 05:42 Dose: 5,000 units Heparin Sodium (Porcine) (Heparin Flush Picc/Ml/Cvc(*)) 1 - 3 ml FLUSH 0600, 1800 [facility]; Protocol Last Admin: 05/24/18 05:42 Dose: Not Given Piperacillin Sod/Tazobactam (Sod 3.375 gm/ Sodium Chloride) 100 mls @ 200 mls/ hr IVPB ONCE ONE Stop: 05/24/18 08:58 Insulin Human Lispro (Humalog*) 0 units SUBCUT AC [facility]; Protocol Last Admin: 05/23/18 17:37 Dose: Not Given Memantine (Namenda Tab*) 10 mg PO DAILY [facility] Last Admin: 05/23/18 13:54 Dose: 10 mg Methylprednisolone Sodium Succinate (Solu-Medrol 40 Mg) 40 mg IV Q8H [facility] Metoprolol Succinate (Toprol Xl Tab*) 100 mg PO DAILY [facility] Last Admin: 05/23/18 10:53 Dose: 100 mg Nystatin (Nystatin Top Powder*) 1 applic TOPICAL BID [facility] Last Admin: 05/23/18 22:10 Dose: 1 applic Pharmacy Consult (Zosyn Per Pharmacy*) 1 note FOLLOW UP .ZOSYN PER PHARMACY [facility] Polyvinyl Alcohol (Polyvinyl Alcohol 1.4% Opth*) 1 drop LEFT EYE QID [facility] Last Admin: 05/23/18 22:04 Dose: 1 drop Simethicone (Mylicon Tab*) 80 mg PO Q12H PRN PRN Reason: INDIGESTION Valsartan (Diovan Tab*) 160 mg PO DAILY [facility] Last Admin: 05/23/18 13:54 Dose: 160 mg Vital Signs - 8 hr 05/24/18 05/24/18 05/24/18 01:00 01:01 01:31 Temperature 99.9 F 99.9 F 99.3 F Pulse Rate 70 68 68 Respiratory 22 24 21 Rate Blood Pressure 139/64 143/66 (mmHg) O2 Sat by Pulse 91 91 95 Oximetry 05/24/18 05/24/18 05/24/18 02:00 02:01 02:30 Temperature 99.9 F 99.9 F 99.7 F Pulse Rate 69 68 66 Respiratory 18 19 18 Rate Blood Pressure 137/70 144/85 (mmHg) O2 Sat by Pulse 92 92 92 Oximetry 05/24/18 05/24/18 05/24/18 03:00 03:30 04:00 Temperature 99.9 F 99.9 F 99.7 F Pulse Rate 68 66 70 Respiratory 18 24 33 Rate Blood Pressure 133/60 137/60 (mmHg) O2 Sat by Pulse 91 92 91 Oximetry 05/24/18 05/24/18 05/24/18 04:01 04:30 05:00 Temperature 99.9 F 99.9 F 99.9 F Pulse Rate 68 69 67 Respiratory 19 22 22 Rate Blood Pressure 137/59 128/73 132/63 (mmHg) O2 Sat by Pulse 90 91 91 Oximetry 05/24/18 05/24/18 05/24/18 05:01 05:30 06:00 Temperature 99.9 F 99.9 F 99.9 F Pulse Rate 68 66 67 Respiratory 14 20 25 Rate Blood Pressure 135/60 139/70 (mmHg) O2 Sat by Pulse 91 91 92 Oximetry 05/24/18 05/24/18 05/24/18 06:01 06:30 07:00 Temperature 99.9 F 99.9 F 99.9 F Pulse Rate 68 67 75 Respiratory 23 20 20 Rate Blood Pressure 137/71 (mmHg) O2 Sat by Pulse 91 92 92 Oximetry 05/24/18 05/24/18 07:02 07:30 Temperature 99.9 F 99.9 F Pulse Rate 66 70 Respiratory 31 19 Rate Blood Pressure 155/73 143/66 (mmHg) O2 Sat by Pulse 91 90 Oximetry Oxygen Devices in Use Now: BiPAP Eyes: No Scleral Icterus Neck: NL Appearance and Movements; NL JVP Respiratory: - - Bronchial breath sounds, dec air entry, basal coarse crackles Cardiovascular: RRR Abdominal: NL Sounds; No Tenderness; No Distention Extremities: No Edema Neurological: - - Alert at time of exam Result Diagrams: 05/23/18 06:30 05/23/18 06:30 Microbiology and Other Data: Microbiology 05/21/18 12:47 Aerobic Blood Culture - Preliminary Blood Venous No Growth Day 1 Anaerobic Blood Culture - Preliminary No Growth Day 1 05/21/18 13:21 Aerobic Blood Culture - Preliminary Blood Venous No Growth Day 1 Anaerobic Blood Culture - Preliminary No Growth Day 1 05/22/18 02:00 Legionella Urinary Antigen - Final Urine Negative Legionella Antigen Streptococcus pneumoniae Ag Screen - Final Negative S. pneumo Antigen 05/21/18 20:12 Nasal Screen MRSA (PCR) - Final Nasal Mrsa Not Detected 05/21/18 13:50 Influenza Types A,B Antigen - Final Nasopharyngeal Specimen received for Influenza A/B Molecular testing Assess/Plan/Problems-Billing Ms Guajardo is an 88 yo F who has a h/o dementia, HTN and type II DM who presented to the ER with c/o cough, fever and AMS and was admitted for treatment of possible pneumonia. - Patient Problems (1) Acute hypoxemic respiratory failure Current Visit: Yes Status: Acute Code(s): J96.01 - ACUTE RESPIRATORY FAILURE WITH HYPOXIA SNOMED Code(s): 120562025 Comment: Acute hypoxemic and hypercapnic Resp Failure CXR c/w chronic COPD with hyperinflation COPD Exacerbation.Poss underlying pneumonia Cough,sputum production,sob and ams at [facility] Needing BIPAP at night and 10 l of oxygen in day time Repeat ABG,CXR (2) COPD exacerbation Current Visit: Yes Status: Acute Code(s): J44.1 - CHRONIC OBSTRUCTIVE PULMONARY DISEASE W (ACUTE) EXACERBATION SNOMED Code(s): 526785750 Comment: COPD Exacerbation with poss underlying pneumonia Will add Solumedrol 40 mg IV Q8h and Duoneb PRN Will change antibiotics that patient is on for Community acquired pneumonia coverage to hospital associated (3) Pneumonia Current Visit: Yes Status: Acute Code(s): J18.9 - PNEUMONIA, UNSPECIFIED ORGANISM SNOMED Code(s): 860235574 Comment: Poss Pneumonia and blood culture pos for Staph Hominis Will stop Azithromycin and Ceftriaxone Will start Vanco and Zosyn for HCAP coverage for now (4) Acute CHF Current Visit: Yes Status: Acute Code(s): I50.9 - HEART FAILURE, UNSPECIFIED SNOMED Code(s): 24845181 Comment: She diuresed ~1400ml since the raymond was placed. Had Echo yesterday Will give lasix 40 mg iv 1 dose today Repeat CXR to understand component of pulmonary edema contributing to pt's resp failure (5) Dementia Current Visit: Yes Status: Acute Code(s): F03.90 - UNSPECIFIED DEMENTIA WITHOUT BEHAVIORAL DISTURBANCE SNOMED Code(s): 25513718 Comment: Continue aricept and namenda. (6) HTN (hypertension) Current Visit: Yes Status: Acute Code(s): I10 - ESSENTIAL (PRIMARY) HYPERTENSION SNOMED Code(s): 07290265 Comment: BP is under ok control. Continue amlodipine, valsartan and metoprolol. (7) Type II diabetes mellitus Current Visit: Yes Status: Acute Comment: Sugars remain under good control. Continue lispro sliding scale, metformin is on hold. (8) DVT prophylaxis Current Visit: Yes Status: Acute Code(s): XXK1564 - SNOMED Code(s): 651529652 Comment: SQ heparin (9) DNR (do not resuscitate) Current Visit: Yes Status: Acute Comment: dnr but not dni yet.but family wants dni.will need to do paperwork today Pt's prognosis very poor.Palliative care consult requested If pt's condition does not improve with above mentioned efforts, will discuss comfort care further with family
[2018-05-24] MEDS: Insulin LISPRO* 1 UNITS UNIT SUBCUT SCH ×3 (08:55→17:24)
[2018-05-24] MEDS ORDERED: Piperacillin/Tazobac ADVAN(*) 3.375 GM in NS 0.9% 100 ML* 100 ML IVPB ONE (09:00)
[2018-05-24] MEDS ORDERED: Zosyn per Pharmacy* NOTE FOLLOW UP SCH (09:00)
[2018-05-24] MEDS: Bacitracin OPHTH.OINT* 3.5 GM BOTH EYES SCH ×3 (09:58→21:13)
[2018-05-24] MEDS: Artificial Tears* 15 ML BTL LEFT EYE SCH ×4 (09:58→21:14)
[2018-05-24] MEDS: Memantine TAB* 10 MG PO SCH (10:10)
[2018-05-24] MEDS: Furosemide IV* 10 MG/ML VIAL (40 MG) IV SCH (10:10)
[2018-05-24] MEDS: guaiFENesin ER TAB 600 MG PO SCH ×3 (10:10→21:20)
[2018-05-24] MEDS: DULoxetine DR CAP* 30 MG CAP.DR PO SCH (10:10)
[2018-05-24] MEDS: methylPREDNISolone SOD 40 MG* 1 ML VIAL IV SCH ×2 (10:10→17:37)
[2018-05-24] MEDS: amLODIPine TAB* 5 MG PO SCH (10:10)
[2018-05-24] MEDS: Valsartan TAB* 160 MG PO SCH (10:11)
[2018-05-24] MEDS: Metoprolol Succinate XL TAB* 100 MG PO SCH (10:11)
[2018-05-24] MEDS: Nystatin TOP POWDER* 15 GM BTL TOPICAL SCH ×2 (11:02→21:14)
[2018-05-24] MEDS: ZOSYN 3.375 GM Q8H per EXTENDED INFUSION IVPB SCH ×4 (14:04→21:28)
[2018-05-24] MEDS: Donepezil TAB* 5 MG PO SCH (21:19)
[2018-05-25] MEDS: methylPREDNISolone SOD 40 MG* 1 ML VIAL IV SCH ×3 (00:28→18:00)
[2018-05-25 05:16] LABS: ABS Basophils 0.1 10^3/ul (0-0.2); ABS Eosinophils 0 10^3/ul (0-0.6); ABS Lymphocytes 0.6 10^3/ul (1.0-4.8); ABS Monocytes 0.1 10^3/ul (0-0.8); ABS Neutrophils 4.6 10^3/ul (1.5-7.7); ABS Nucleated RBC 0 10^3/ul; Eosinophil % 0.1 %; Hematocrit 42 % (35-47); Hemoglobin 13.8 g/dl (12.0-16.0); Lymphocyte % 10.6 %; Mean Corpuscular HGB Conc 33 g/dl (31-36); Mean Corpuscular Hemoglobin 30 pg (27-31); Mean Corpuscular Volume 91 fL (80-97); Mean Platelet Volume 8.5 fL (7.4-10.4); Nucleated Red Blood Cells % 0; Platelet Count 231 10^3/ul (150-450); Red Blood Count 4.58 10^6/ul (4.00-5.40); Red Cell Distribution Width 13 % (10.5-15); White Blood Count 5.3 10^3/ul (3.5-10.8)
[2018-05-25 05:31] LABS: BUN/Creatinine Ratio 34.5 (8-20); Calcium 9.9 mg/dL (8.6-10.3); EGFR African American 54.9 (>60); EGFR Non-African American 45.3 (>60); Potassium 3.8 mmol/L (3.5-5.0)
[2018-05-25] MEDS: ZOSYN 3.375 GM Q8H per EXTENDED INFUSION IVPB SCH ×6 (05:55→21:21)
[2018-05-25] MEDS: Heparin VIAL(*) 5000 UNITS/ML VIAL (FIVE THOUSAND) SUBCUT SCH ×3 (05:55→21:19)
[2018-05-25] MEDS: Furosemide IV* 10 MG/ML VIAL (40 MG) IV SCH (08:27)
[2018-05-25] MEDS: Artificial Tears* 15 ML BTL LEFT EYE SCH ×4 (08:32→21:18)
[2018-05-25] MEDS: Bacitracin OPHTH.OINT* 3.5 GM BOTH EYES SCH ×3 (08:32→21:19)
[2018-05-25] MEDS: amLODIPine TAB* 5 MG PO SCH (08:35)
[2018-05-25] MEDS: guaiFENesin ER TAB 600 MG PO SCH ×2 (08:35→21:18)
[2018-05-25] MEDS: DULoxetine DR CAP* 30 MG CAP.DR PO SCH (08:35)
[2018-05-25] MEDS: Memantine TAB* 10 MG PO SCH (08:35)
[2018-05-25] MEDS: Metoprolol Succinate XL TAB* 100 MG PO SCH (08:35)
[2018-05-25] MEDS: Valsartan TAB* 160 MG PO SCH (08:35)
--- NOTE | 2018-05-25 08:43 | PN ---
Subjective Date of Service: 05/25/18 Interval History: More awake and alert today.Has baseline dementia and dosent remember her age.Oriented to place and person and able to have a conversation today.Denies any complaints Objective Active Medications: Acetaminophen (Tylenol Tab*) 650 mg PO Q4H PRN PRN Reason: FEVER/PAIN Albuterol (Ventolin 2.5 Mg/3 Ml Neb.Janel*) 2.5 mg INH [id number] AWAKE PRN PRN Reason: sob/wheezing Albuterol/Ipratropium (Duoneb (Albuterol 2.5 Mg/Ipratropium 0.5 Mg)) 1 neb INH Q4H PRN PRN Reason: SOB/WHEEZING Amlodipine Besylate (Norvasc Tab*) 10 mg PO DAILY [facility] Last Admin: 05/24/18 10:10 Dose: 10 mg Bacitracin (Bacitracin Ophth.Oint*) 1 applic BOTH EYES TID [facility] Last Admin: 05/25/18 08:32 Dose: 1 applic Dextrose (D50w Syringe 50 Ml*) 12.5 gm IV PUSH .FOR FS < 60 - SS PRN PRN Reason: FS < 60 Donepezil HCl (Aricept Tab*) 10 mg PO BEDTIME [facility] Last Admin: 05/24/18 21:19 Dose: 10 mg Duloxetine HCl (Cymbalta Cap*) 30 mg PO DAILY [facility] Last Admin: 05/24/18 10:10 Dose: 30 mg Furosemide (Lasix Iv*) 40 mg IV DAILY [facility] Last Admin: 05/25/18 08:27 Dose: 40 mg Guaifenesin (Mucinex*) 600 mg PO BID [facility] Last Admin: 05/24/18 21:20 Dose: 600 mg Heparin Sodium (Porcine) (Heparin Vial(*)) 5,000 units SUBCUT Q8HR [facility] Last Admin: 05/25/18 05:55 Dose: 5,000 units Heparin Sodium (Porcine) (Heparin Flush Picc/Ml/Cvc(*)) 1 - 3 ml FLUSH 0600, 1800 [facility]; Protocol Last Admin: 05/25/18 05:57 Dose: Not Given Piperacillin Sod/Tazobactam (Sod 3.375 gm/ Sodium Chloride) 100 mls @ 25 mls/ hr IVPB Q8H [facility] Last Admin: 05/25/18 05:55 Dose: 25 mls/hr Insulin Human Lispro (Humalog*) 0 units SUBCUT AC [facility]; Protocol Last Admin: 05/24/18 17:24 Dose: Not Given Memantine (Namenda Tab*) 10 mg PO DAILY [facility] Last Admin: 05/24/18 10:10 Dose: 10 mg Methylprednisolone Sodium Succinate (Solu-Medrol 40 Mg) 40 mg IV Q8H [facility] Last Admin: 05/25/18 08:27 Dose: 40 mg Metoprolol Succinate (Toprol Xl Tab*) 100 mg PO DAILY [facility] Last Admin: 05/24/18 10:11 Dose: 100 mg Nystatin (Nystatin Top Powder*) 1 applic TOPICAL BID [facility] Last Admin: 05/24/18 21:14 Dose: 1 applic Pharmacy Consult (Zosyn Per Pharmacy*) 1 note FOLLOW UP .ZOSYN PER PHARMACY [facility] Polyvinyl Alcohol (Polyvinyl Alcohol 1.4% Opth*) 1 drop LEFT EYE QID [facility] Last Admin: 05/25/18 08:32 Dose: 1 drop Simethicone (Mylicon Tab*) 80 mg PO Q12H PRN PRN Reason: INDIGESTION Valsartan (Diovan Tab*) 160 mg PO DAILY [facility] Last Admin: 05/24/18 10:11 Dose: 160 mg Vital Signs - 8 hr 05/25/18 05/25/18 05/25/18 01:00 01:01 02:00 Temperature 97.9 F 97.9 F 98.1 F Pulse Rate 65 64 65 Respiratory 16 17 15 Rate Blood Pressure 129/70 123/62 (mmHg) O2 Sat by Pulse 96 97 96 Oximetry 05/25/18 05/25/18 05/25/18 02:01 03:00 03:01 Temperature 98.1 F 98.2 F 98.2 F Pulse Rate 64 64 65 Respiratory 14 18 15 Rate Blood Pressure 133/63 (mmHg) O2 Sat by Pulse 96 95 95 Oximetry 05/25/18 05/25/18 05/25/18 04:00 04:01 04:39 Temperature 98.2 F 98.2 F 98.4 F Pulse Rate 65 64 63 Respiratory 16 17 16 Rate Blood Pressure 127/61 130/56 (mmHg) O2 Sat by Pulse 93 92 88 Oximetry 05/25/18 05/25/18 05/25/18 05:00 05:01 06:00 Temperature 98.4 F 98.4 F 98.8 F Pulse Rate 62 58 65 Respiratory 18 16 20 Rate Blood Pressure 136/67 136/72 (mmHg) O2 Sat by Pulse 95 94 93 Oximetry 05/25/18 05/25/18 05/25/18 06:01 07:00 07:01 Temperature 98.8 F 98.8 F 98.8 F Pulse Rate 64 62 62 Respiratory 21 10 16 Rate Blood Pressure 140/70 (mmHg) O2 Sat by Pulse 93 94 94 Oximetry 05/25/18 08:00 Temperature 98.8 F Pulse Rate 67 Respiratory 18 Rate Blood Pressure 147/79 (mmHg) O2 Sat by Pulse 96 Oximetry Oxygen Devices in Use Now: Nasal Cannula, BiPAP Eyes: No Scleral Icterus Neck: NL Appearance and Movements; NL JVP Respiratory: Symmetrical Chest Expansion and Respiratory Effort, Clear to Auscultation Cardiovascular: RRR Extremities: No Edema Neurological: - - alert oriented*2 Result Diagrams: 05/25/18 05:00 05/25/18 05:00 Microbiology and Other Data: Microbiology 05/21/18 12:47 Aerobic Blood Culture - Preliminary Blood Venous No Growth Day 1 Anaerobic Blood Culture - Preliminary No Growth Day 1 05/21/18 13:21 Aerobic Blood Culture - Preliminary Blood Venous No Growth Day 1 Anaerobic Blood Culture - Preliminary No Growth Day 1 05/22/18 02:00 Legionella Urinary Antigen - Final Urine Negative Legionella Antigen Streptococcus pneumoniae Ag Screen - Final Negative S. pneumo Antigen 05/21/18 20:12 Nasal Screen MRSA (PCR) - Final Nasal Mrsa Not Detected 05/21/18 13:50 Influenza Types A,B Antigen - Final Nasopharyngeal Specimen received for Influenza A/B Molecular testing Assess/Plan/Problems-Billing Ms Guajardo is an 88 yo F who has a h/o dementia, HTN and type II DM who presented to the ER with c/o cough, fever and AMS and was admitted for treatment of possible pneumonia. - Patient Problems (1) Acute hypoxemic respiratory failure Current Visit: Yes Status: Acute Code(s): J96.01 - ACUTE RESPIRATORY FAILURE WITH HYPOXIA SNOMED Code(s): 638132230 Comment: Acute hypoxemic and hypercapnic Resp Failure CXR c/w chronic COPD with hyperinflation COPD Exacerbation.Poss underlying pneumonia Cough,sputum production,sob and ams at residential Needing BIPAP at night and 10 l of oxygen in day time Repeat ABG,CXR (2) COPD exacerbation Current Visit: Yes Status: Acute Code(s): J44.1 - CHRONIC OBSTRUCTIVE PULMONARY DISEASE W (ACUTE) EXACERBATION SNOMED Code(s): 863733097 Comment: COPD Exacerbation with poss underlying pneumonia Added Solumedrol 40 mg IV Q8h and Duoneb PRN Changed antibiotics that patient is on for Community acquired pneumonia coverage to hospital associated (3) Pneumonia Current Visit: Yes Status: Acute Code(s): J18.9 - PNEUMONIA, UNSPECIFIED ORGANISM SNOMED Code(s): 071297858 Comment: Poss Pneumonia and blood culture pos for Staph Hominis Will stop Azithromycin and Ceftriaxone Will start Vanco and Zosyn for HCAP coverage for now (4) Acute CHF Current Visit: Yes Status: Acute Code(s): I50.9 - HEART FAILURE, UNSPECIFIED SNOMED Code(s): 11328869 Comment: She diuresed ~1400ml since the raymond was placed. Had Echo Recd lasix 40 mg iv Repeat CXR to understand component of pulmonary edema contributing to pt's resp failure (5) Dementia Current Visit: Yes Status: Acute Code(s): F03.90 - UNSPECIFIED DEMENTIA WITHOUT BEHAVIORAL DISTURBANCE SNOMED Code(s): 28830096 Comment: Continue aricept and namenda. (6) HTN (hypertension) Current Visit: Yes Status: Acute Code(s): I10 - ESSENTIAL (PRIMARY) HYPERTENSION SNOMED Code(s): 58421933 Comment: BP is under ok control. Continue amlodipine, valsartan and metoprolol. (7) Type II diabetes mellitus Current Visit: Yes Status: Acute Comment: Sugars remain under good control. Continue lispro sliding scale, metformin is on hold. (8) DVT prophylaxis Current Visit: Yes Status: Acute Code(s): LWO3461 - SNOMED Code(s): 261751063 Comment: SQ heparin (9) DNR (do not resuscitate) Current Visit: Yes Status: Acute Comment: DNR DNI with Family yesterday, son and grandson Pt's prognosis very poor.Palliative care consult requested If pt's condition does not improve with above mentioned efforts, will discuss comfort care further with family
[2018-05-25] MEDS: Insulin LISPRO* 1 UNITS UNIT SUBCUT SCH ×3 (08:45→18:00)
[2018-05-25] MEDS ORDERED: Furosemide IV* 10 MG/ML VIAL (40 MG) IV ONE (08:45)
[2018-05-25] MEDS: Nystatin TOP POWDER* 15 GM BTL TOPICAL SCH ×2 (12:36→21:19)
[2018-05-25] MEDS: Donepezil TAB* 5 MG PO SCH (21:21)
[2018-05-26] MEDS: methylPREDNISolone SOD 40 MG* 1 ML VIAL IV SCH ×3 (01:15→20:59)
[2018-05-26 05:39] LABS: ABS Basophils 0 10^3/ul (0-0.2); ABS Eosinophils 0 10^3/ul (0-0.6); ABS Lymphocytes 0.6 10^3/ul (1.0-4.8); ABS Monocytes 0.1 10^3/ul (0-0.8); ABS Neutrophils 6.6 10^3/ul (1.5-7.7); ABS Nucleated RBC 0 10^3/ul; Eosinophil % 0 %; Hematocrit 44 % (35-47); Lymphocyte % 8.2 %; Mean Corpuscular HGB Conc 32 g/dl (31-36); Mean Corpuscular Hemoglobin 29 pg (27-31); Mean Corpuscular Volume 90 fL (80-97); Mean Platelet Volume 8.3 fL (7.4-10.4); Nucleated Red Blood Cells % 0; Platelet Count 259 10^3/ul (150-450); Red Blood Count 4.81 10^6/ul (4.00-5.40); Red Cell Distribution Width 14 % (10.5-15); White Blood Count 7.4 10^3/ul (3.5-10.8)
[2018-05-26 05:57] LABS: BUN/Creatinine Ratio 39.2 (8-20); EGFR African American 48.8 (>60); EGFR Non-African American 40.4 (>60); Potassium 3.2 mmol/L (3.5-5.0)
[2018-05-26] MEDS: Heparin VIAL(*) 5000 UNITS/ML VIAL (FIVE THOUSAND) SUBCUT SCH ×3 (06:14→20:59)
[2018-05-26] MEDS: ZOSYN 3.375 GM Q8H per EXTENDED INFUSION IVPB SCH ×6 (06:14→21:49)
--- NOTE | 2018-05-26 07:32 | PN ---
Subjective Date of Service: 05/26/18 Interval History: HD #5 on 05/26/18 88 yo F with PMH dementia, HTN, Type 2 DM, possible HFpEF, COPD who presented in hypoxic resp failure with fever thought to be 2/2 to PNA No overnight events VSS: 162-153/90s, 67, 95-93% on 2L Oxymask, 20, 98.4T Max, UOP excellent 1925ml in 24 hours, stooling. Seen this morning, pleasantly demented in no acute distress, did eat breakfast, palliative care is seeing patient as well and they have been in contact with her son.Denies CP, GI/ or MSK complaints, does have ongoing mild BELLO. Objective Active Medications: Acetaminophen (Tylenol Tab*) 650 mg PO Q4H PRN PRN Reason: FEVER/PAIN Albuterol (Ventolin 2.5 Mg/3 Ml Neb.Janel*) 2.5 mg INH [id number] AWAKE PRN PRN Reason: sob/wheezing Albuterol/Ipratropium (Duoneb (Albuterol 2.5 Mg/Ipratropium 0.5 Mg)) 1 neb INH Q4H PRN PRN Reason: SOB/WHEEZING Amlodipine Besylate (Norvasc Tab*) 10 mg PO DAILY [facility] Last Admin: 05/25/18 08:35 Dose: 10 mg Bacitracin (Bacitracin Ophth.Oint*) 1 applic BOTH EYES TID [facility] Last Admin: 05/25/18 21:19 Dose: 1 applic Dextrose (D50w Syringe 50 Ml*) 12.5 gm IV PUSH .FOR FS < 60 - SS PRN PRN Reason: FS < 60 Donepezil HCl (Aricept Tab*) 10 mg PO BEDTIME [facility] Last Admin: 05/25/18 21:21 Dose: 10 mg Duloxetine HCl (Cymbalta Cap*) 30 mg PO DAILY [facility] Last Admin: 05/25/18 08:35 Dose: 30 mg Furosemide (Lasix Iv*) 40 mg IV DAILY [facility] Last Admin: 05/25/18 08:27 Dose: 40 mg Guaifenesin (Mucinex*) 600 mg PO BID [facility] Last Admin: 05/25/18 21:18 Dose: 600 mg Heparin Sodium (Porcine) (Heparin Vial(*)) 5,000 units SUBCUT Q8HR [facility] Last Admin: 05/26/18 06:14 Dose: 5,000 units Heparin Sodium (Porcine) (Heparin Flush Picc/Ml/Cvc(*)) 1 - 3 ml FLUSH 0600, 1800 [facility]; Protocol Last Admin: 05/26/18 04:53 Dose: Not Given Piperacillin Sod/Tazobactam (Sod 3.375 gm/ Sodium Chloride) 100 mls @ 25 mls/ hr IVPB Q8H [facility] Last Admin: 05/26/18 06:14 Dose: 25 mls/hr Insulin Human Lispro (Humalog*) 0 units SUBCUT AC [facility]; Protocol Last Admin: 05/25/18 18:00 Dose: 1 unit Memantine (Namenda Tab*) 10 mg PO DAILY [facility] Last Admin: 05/25/18 08:35 Dose: 10 mg Methylprednisolone Sodium Succinate (Solu-Medrol 40 Mg) 40 mg IV Q8H [facility] Last Admin: 05/26/18 01:15 Dose: 40 mg Metoprolol Succinate (Toprol Xl Tab*) 100 mg PO DAILY [facility] Last Admin: 05/25/18 08:35 Dose: 100 mg Nystatin (Nystatin Top Powder*) 1 applic TOPICAL BID [facility] Last Admin: 05/25/18 21:19 Dose: 1 applic Pharmacy Consult (Zosyn Per Pharmacy*) 1 note FOLLOW UP .ZOSYN PER PHARMACY [facility] Polyvinyl Alcohol (Polyvinyl Alcohol 1.4% Opth*) 1 drop LEFT EYE QID [facility] Last Admin: 05/25/18 21:18 Dose: 1 drop Simethicone (Mylicon Tab*) 80 mg PO Q12H PRN PRN Reason: INDIGESTION Valsartan (Diovan Tab*) 160 mg PO DAILY [facility] Last Admin: 05/25/18 08:35 Dose: 160 mg Vital Signs - 8 hr 05/26/18 05/26/18 05/26/18 00:00 00:01 01:00 Temperature 99.0 F 99.0 F 99.0 F Pulse Rate 63 62 60 Respiratory 23 19 13 Rate Blood Pressure 146/73 153/77 (mmHg) O2 Sat by Pulse 95 95 96 Oximetry 05/26/18 05/26/18 05/26/18 01:01 01:32 02:00 Temperature 99.0 F 98.8 F Pulse Rate 61 67 62 Respiratory 16 18 19 Rate Blood Pressure (mmHg) O2 Sat by Pulse 96 93 88 Oximetry 05/26/18 05/26/18 05/26/18 03:00 03:04 03:28 Temperature 98.8 F 98.8 F Pulse Rate 63 63 Respiratory 16 16 16 Rate Blood Pressure 146/66 (mmHg) O2 Sat by Pulse 93 94 Oximetry 05/26/18 05/26/18 05/26/18 04:00 04:01 04:47 Temperature 98.6 F 98.6 F Pulse Rate 63 64 Respiratory 20 19 16 Rate Blood Pressure 152/80 (mmHg) O2 Sat by Pulse 93 92 Oximetry 05/26/18 05/26/18 05/26/18 05:00 05:01 05:52 Temperature 98.4 F 98.4 F Pulse Rate 63 62 Respiratory 20 15 15 Rate Blood Pressure 162/71 (mmHg) O2 Sat by Pulse 95 95 Oximetry 05/26/18 06:00 Temperature 98.4 F Pulse Rate 67 Respiratory 20 Rate Blood Pressure 156/90 (mmHg) O2 Sat by Pulse 93 Oximetry Oxygen Devices in Use Now: OxyMask Appearance: Elderly woman in NAD Eyes: No Scleral Icterus, - - Mild R eye injected conjunctiva Ears/Nose/Mouth/Throat: Mucous Membranes Moist, - - Adentulous Neck: NL Appearance and Movements; NL JVP, Trachea Midline, No Thyroid Enlargement, Masses Respiratory: Symmetrical Chest Expansion and Respiratory Effort, - - Rhonchorus throughout with no wheeze, blt crackles at lung bases, no WOB Cardiovascular: NL Sounds; No Murmurs; No JVD, RRR, No Edema Abdominal: NL Sounds; No Tenderness; No Distention, No Hepatosplenomegaly Lymphatic: No Cervical Adenopathy Extremities: No Edema Skin: No Rash or Ulcers Neurological: - - Oriented to self Result Diagrams: 05/26/18 05:22 05/26/18 05:22 Microbiology and Other Data: Influenza: Negative Blood Cx Assess/Plan/Problems-Billing 88 yo F with PMH dementia, HTN, Type 2 DM, possible HFpEF, COPD who presented in hypoxic resp failure with fever thought to be 2/2 to PNA - Patient Problems (1) Acute hypoxemic respiratory failure Current Visit: Yes Status: Acute Code(s): J96.01 - ACUTE RESPIRATORY FAILURE WITH HYPOXIA SNOMED Code(s): 960095332 Comment: -Acute hypoxemic and hypercapnic resp failure per admission, 05/10 to PNA and COPD exacerbation, CXR c/w chronic COPD with hyperinflation poss PNA -Needing BIPAP at night and Oxymask during day -Last CXR 05/24 R pleural effusion, cardiomegaly, edema, has been on Lasix -Currently improving on 05/26, on 2L Oxymask, may be stable for floor in terms of O2 needs (2) Pneumonia Current Visit: Yes Status: Acute Code(s): J18.9 - PNEUMONIA, UNSPECIFIED ORGANISM SNOMED Code(s): 783341043 Comment: Poss Pneumonia and blood culture pos for Staph Hominis, repeat culture neg, Flu neg -s/p Azithromycin and Ceftriaxone 05/21-05/24 total of 3 days -05/24 started Vanco and Zosyn for HCAP coverage Day 05/15-10 on 05/26, continue for now (3) COPD exacerbation Current Visit: Yes Status: Acute Code(s): J44.1 - CHRONIC OBSTRUCTIVE PULMONARY DISEASE W (ACUTE) EXACERBATION SNOMED Code(s): 530577687 Comment: COPD Exacerbation with poss underlying pneumonia -On Solumedrol 40 mg IV Q8h starting 05/24 and Duoneb ATC, will space to q 12 hours, then change to PO Prednisone 05/28 -Remains on Vanc/Zosyn, on IV Solumedrol (4) Acute CHF Current Visit: Yes Status: Acute Code(s): I50.9 - HEART FAILURE, UNSPECIFIED SNOMED Code(s): 96099647 Comment: -Echo 05/23 with EF 70%, LVH, possible HFpEF -She diuresed ~1925ml this past 24 hours, mild dehydration on BMP 05/26, K replaced 05/26 -Recd lasix 40 mg iv q day since 05/23, continue for now -Last CXR with edema and R pleural effusion, will attempt to keep slightly dry, repeat CXR 05/27 vs 05/26 (5) Type II diabetes mellitus Current Visit: Yes Status: Acute Comment: Sugars remain under good control. Continue lispro sliding scale, metformin is on hold. (6) HTN (hypertension) Current Visit: Yes Status: Acute Code(s): I10 - ESSENTIAL (PRIMARY) HYPERTENSION SNOMED Code(s): 12976421 Comment: BP is under ok control. Continue amlodipine, valsartan and metoprolol. (7) Dementia Current Visit: Yes Status: Acute Code(s): F03.90 - UNSPECIFIED DEMENTIA WITHOUT BEHAVIORAL DISTURBANCE SNOMED Code(s): 51523465 Comment: Continue aricept and namenda. (8) DVT prophylaxis Current Visit: Yes Status: Acute Code(s): YEA8665 - SNOMED Code(s): 934760188 Comment: SQ heparin (9) DNR (do not resuscitate) Current Visit: Yes Status: Acute Comment: DNR DNI with Family yesterday, son and grandson Pt's prognosis very poor.Palliative care consult requested If pt's condition does not improve with above mentioned efforts, will discuss comfort care further with family or plan to return to [facility] with hospice Status and Disposition: Transfer to floor
[2018-05-26] MEDS: Insulin LISPRO* 1 UNITS UNIT SUBCUT SCH ×3 (08:55→17:15)
[2018-05-26] MEDS: Furosemide IV* 10 MG/ML VIAL (40 MG) IV SCH (08:56)
[2018-05-26] MEDS: Bacitracin OPHTH.OINT* 3.5 GM BOTH EYES SCH ×3 (08:56→21:12)
[2018-05-26] MEDS: Artificial Tears* 15 ML BTL LEFT EYE SCH ×4 (08:56→21:10)
[2018-05-26] MEDS: amLODIPine TAB* 5 MG PO SCH (08:56)
[2018-05-26] MEDS: DULoxetine DR CAP* 30 MG CAP.DR PO SCH (08:56)
[2018-05-26] MEDS: Memantine TAB* 10 MG PO SCH (08:57)
[2018-05-26] MEDS: Valsartan TAB* 160 MG PO SCH (08:57)
[2018-05-26] MEDS: Nystatin TOP POWDER* 15 GM BTL TOPICAL SCH ×2 (08:57→21:10)
[2018-05-26] MEDS: Metoprolol Succinate XL TAB* 100 MG PO SCH (08:57)
[2018-05-26] MEDS: guaiFENesin ER TAB 600 MG PO SCH ×2 (08:57→20:59)
[2018-05-26] MEDS ORDERED: Potassium Chloride LIQUID* 20 MEQ PACKET PO SCH (11:00)
[2018-05-26] MEDS ORDERED: Potassium Chlor TAB* 20 MEQ TAB.ER PO SCH (11:00)
[2018-05-26] MEDS ORDERED: methylPREDNISolone SOD 40 MG* 1 ML VIAL IV SCH (11:00)
[2018-05-26] MEDS: Potassium Chloride LIQUID* 20 MEQ PACKET PO SCH ×2 (13:24→20:59)
[2018-05-26] MEDS: Donepezil TAB* 5 MG PO SCH (20:59)
--- NOTE | 2018-05-26 21:41 | CONSULT ---
Palliative / Hospice Consult Ordering Provider: Cleo Vela - [facility] - Subjective Code Status: DNR Advance Directives Location: With Family MOLST Part A Completed: Yes - on chart MOLST Part E Completed:: Yes - on chart - History or Present Illness History or Present Illness: 88 yo female resident of [facility] with moderate dementia presented to ER with cough, SOB and unresponsiveness. Admitted with pneumonia, CHF & COPD. PMH is significant for COPD by xray, Afib, HTN, DM type 2, CVA, recent removal of facial Basal cell carcinoma & CHF. All history is from the chart and family. Non smoker, no etoh no drugs use. Grandson's girlfriend who works at [facility] notes that pts dementia fluctuates sometimes she is very clear and other times not. She notes that she uses a walker and is continent. Was on O2 when she arrived at [facility] but is off of it now. She has been in assisted living and a group home in [place] prior to [facility]. ECHO showed EF65% mild pulmonary HTN, EKG afib, CXR#1 COPD and CXR#2 pulmonary edema, brain CT negative , tprot 7.7, alb 4.5 BUN/Cr 36/1.11 egfr 46. Pt is using BIPAP at night but doesn't like the mask while in ICU. Was initally on the floor had episode of CHF and was transferred to ICU. Lab Values: Abnormal Lab Results 05/26/18 05/26/18 05/26/18 05:22 05:22 08:44 WBC 7.4 RBC 4.81 Hgb 14.0 Hct 44 MCV 90 MCH 29 MCHC 32 RDW 14 Plt Count 259 MPV 8.3 Neut % (Auto) 89.9 Lymph % (Auto) 8.2 [place] % (Auto) 1.6 Eos % (Auto) 0 Baso % (Auto) 0.3 Absolute Neuts (auto) 6.6 Absolute Lymphs (auto) 0.6 L Absolute Monos (auto) 0.1 Absolute Eos (auto) 0 Absolute Basos (auto) 0 Absolute Nucleated RBC 0 Nucleated RBC % 0 Sodium 146 H Potassium 3.2 L Chloride 107 Carbon Dioxide 32 Anion Gap 7 BUN 49 H Creatinine 1.25 H Est GFR ( Amer) 48.8 Est GFR (Non-Af Amer) 40.4 BUN/Creatinine Ratio 39.2 H Glucose 197 H POC Glucose (mg/dL) 195 H Calcium 10.0 05/26/18 05/26/18 11:52 17:12 WBC RBC Hgb Hct MCV MCH MCHC RDW Plt Count MPV Neut % (Auto) Lymph % (Auto) [place] % (Auto) Eos % (Auto) Baso % (Auto) Absolute Neuts (auto) Absolute Lymphs (auto) Absolute Monos (auto) Absolute Eos (auto) Absolute Basos (auto) Absolute Nucleated RBC Nucleated RBC % Sodium Potassium Chloride Carbon Dioxide Anion Gap BUN Creatinine Est GFR ( Amer) Est GFR (Non-Af Amer) BUN/Creatinine Ratio Glucose POC Glucose (mg/dL) 285 H 141 H Calcium Laboratory Last Values WBC 7.4 10^3/ul (3.5-10.8) 05/26/18 05:22 RBC 4.81 10^6/ul (4.00-5.40) 05/26/18 05:22 Hgb 14.0 g/dl (12.0-16.0) 05/26/18 05:22 Hct 44 % (35-47) 05/26/18 05:22 MCV 90 fL (80-97) 05/26/18 05:22 MCH 29 pg (27-31) 05/26/18 05:22 MCHC 32 g/dl (31-36) 05/26/18 05:22 RDW 14 % (10.5-15) 05/26/18 05:22 Plt Count 259 10^3/ul (150-450) 05/26/18 05:22 MPV 8.3 fL (7.4-10.4) 05/26/18 05:22 Neut % (Auto) 89.9 % 05/26/18 05:22 Lymph % (Auto) 8.2 % 05/26/18 05:22 [facility] [place] % (Auto) 1.6 % 05/26/18 05:22 Eos % (Auto) 0 % 05/26/18 05:22 Baso % (Auto) 0.3 % 05/26/18 05:22 Absolute Neuts (auto) 6.6 10^3/ul (1.5-7.7) 05/26/18 05:22 Absolute Lymphs (auto) 0.6 10^3/ul (1.0-4.8) L 05/26/18 05:22 Absolute Monos (auto) 0.1 10^3/ul (0-0.8) 05/26/18 05:22 Absolute Eos (auto) 0 10^3/ul (0-0.6) 05/26/18 05:22 Absolute Basos (auto) 0 10^3/ul (0-0.2) 05/26/18 05:22 Absolute Nucleated RBC 0 10^3/ul 05/26/18 05:22 Nucleated RBC % 0 05/26/18 05:22 Patient Temperature Not Reportable 05/24/18 09:10 ABG pH 7.40 (7.35-7.45) 05/24/18 09:10 ABG pH (Temp Correct) Not Reportable 05/24/18 09:10 ABG pCO2 43 mmHg (35-45) 05/24/18 09:10 ABG pCO2 (Temp Corrct Not Reportable 05/24/18 09:10 ABG pO2 60 mmHg (80-100) L 05/24/18 09:10 ABG pO2 (Temp Correct Not Reportable 05/24/18 09:10 ABG HCO3 25.9 mmol/L (19-31) 05/24/18 09:10 ABG O2 Saturation 93.3 % (94.0-98.0) L 05/24/18 09:10 ABG Base Excess 1.5 mmol/L (-2.0-2.0) 05/24/18 09:10 VBG pH 7.31 (7.32-7.43) L 05/21/18 13:21 VBG pCO2 57 mmHg (41-51) H 05/21/18 13:21 VBG pO2 < 38.0 mmHg (35-45) 05/21/18 13:21 VBG HCO3 24.4 mmol/L (24-28) 05/21/18 13:21 VBG O2 Saturation 43.7 % (70-80) L 05/21/18 13:21 VBG Base Excess 1.2 mmol/L (0.0-4.0) 05/21/18 13:21 Respiration Rate 16 05/24/18 09:10 Ventilator Type Not Reportable 05/24/18 09:10 Vent Mode Not Reportable 05/24/18 09:10 FiO2 70 05/24/18 09:10 Inspiratory Time Not Reportable 05/24/18 09:10 PEEP Not Reportable 05/24/18 09:10 Pressure Support Not Reportable 05/24/18 09:10 Pressure Control Not Reportable 05/24/18 09:10 EPAP 6 05/24/18 09:10 IPAP 14 05/24/18 09:10 BiPAP s/t 05/24/18 09:10 Sodium 146 mmol/L (135-145) H 05/26/18 05:22 Potassium 3.2 mmol/L (3.5-5.0) L 05/26/18 05:22 Chloride 107 mmol/L (101-111) 05/26/18 05:22 Carbon Dioxide 32 mmol/L (22-32) 05/26/18 05:22 Anion Gap 7 mmol/L (2-11) 05/26/18 05:22 BUN 49 mg/dL (6-24) H 05/26/18 05:22 Creatinine 1.25 mg/dL (0.51-0.95) H 05/26/18 05:22 Est GFR ( Amer) 48.8 (>60) 05/26/18 05:22 Est GFR (Non-Af Amer) 40.4 (>60) 05/26/18 05:22 BUN/Creatinine Ratio 39.2 (8-20) H 05/26/18 05:22 Glucose 197 mg/dL (70-100) H 05/26/18 05:22 POC Glucose (mg/dL) 141 mg/dL (70-100) H 05/26/18 17:12 Lactic Acid 1.2 mmol/L (0.5-2.0) 05/21/18 13:22 Calcium 10.0 mg/dL (8.6-10.3) 05/26/18 05:22 Total Bilirubin 0.50 mg/dL (0.2-1.0) 05/21/18 13:21 AST 12 U/L (13-39) L 05/21/18 13:21 ALT 6 U/L (7-52) L 05/21/18 13:21 Alkaline Phosphatase 115 U/L (34-104) H 05/21/18 13:21 Troponin I 0.00 ng/mL (<0.04) 05/21/18 13:21 Total Protein 7.7 g/dL (6.4-8.9) 05/21/18 13:21 Albumin 4.5 g/dL (3.2-5.2) 05/21/18 13:21 Globulin 3.2 g/dL (2-4) 05/21/18 13:21 Albumin/Globulin Ratio 1.4 (1-3) 05/21/18 13:21 Urine Color Straw 05/22/18 15:32 Urine Appearance Clear 05/22/18 15:32 Urine pH 5.0 (5-9) 05/22/18 15:32 Ur Specific [place] 1.008 (1.010-1.030) L 05/22/18 15:32 Urine Protein Negative (Negative) 05/22/18 15:32 Urine Ketones Negative (Negative) 05/22/18 15:32 Urine Blood Negative (Negative) 05/22/18 15:32 Urine Nitrate Negative (Negative) 05/22/18 15:32 Urine Bilirubin Negative (Negative) 05/22/18 15:32 Urine Urobilinogen Negative (Negative) 05/22/18 15:32 Ur Leukocyte Esterase Negative (Negative) 05/22/18 15:32 Urine Glucose Negative (Negative) 05/22/18 15:32 Influenza A (Rapid) Negative (Negative) 05/21/18 14:03 Influenza B (Rapid) Negative (Negative) 05/21/18 14:03 - Objective Active Medications: Acetaminophen (Tylenol Tab*) 650 mg PO Q4H PRN PRN Reason: FEVER/PAIN Albuterol (Ventolin 2.5 Mg/3 Ml Neb.Janel*) 2.5 mg INH [id number] AWAKE PRN PRN Reason: sob/wheezing Albuterol/Ipratropium (Duoneb (Albuterol 2.5 Mg/Ipratropium 0.5 Mg)) 1 neb INH Q4H PRN PRN Reason: SOB/WHEEZING Amlodipine Besylate (Norvasc Tab*) 10 mg PO DAILY [facility] Last Admin: 05/26/18 08:56 Dose: 10 mg Bacitracin (Bacitracin Ophth.Oint*) 1 applic BOTH EYES TID [facility] Last Admin: 05/26/18 21:12 Dose: 1 applic Dextrose (D50w Syringe 50 Ml*) 12.5 gm IV PUSH .FOR FS < 60 - SS PRN PRN Reason: FS < 60 Donepezil HCl (Aricept Tab*) 10 mg PO BEDTIME [facility] Last Admin: 05/26/18 20:59 Dose: 10 mg Duloxetine HCl (Cymbalta Cap*) 30 mg PO DAILY [facility] Last Admin: 05/26/18 08:56 Dose: 30 mg Furosemide (Lasix Iv*) 40 mg IV DAILY [facility] Last Admin: 05/26/18 08:56 Dose: 40 mg Guaifenesin (Mucinex*) 600 mg PO BID [facility] Last Admin: 05/26/18 20:59 Dose: 600 mg Heparin Sodium (Porcine) (Heparin Vial(*)) 5,000 units SUBCUT Q8HR [facility] Last Admin: 05/26/18 20:59 Dose: 5,000 units Heparin Sodium (Porcine) (Heparin Flush Picc/Ml/Cvc(*)) 1 - 3 ml FLUSH 0600, 1800 [facility]; Protocol Last Admin: 05/26/18 21:03 Dose: 1 ml Piperacillin Sod/Tazobactam (Sod 3.375 gm/ Sodium Chloride) 100 mls @ 25 mls/ hr IVPB Q8H [facility] Last Admin: 05/26/18 13:24 Dose: 25 mls/hr Insulin Human Lispro (Humalog*) 0 units SUBCUT AC [facility]; Protocol Last Admin: 05/26/18 17:15 Dose: Not Given Memantine (Namenda Tab*) 10 mg PO DAILY [facility] Last Admin: 05/26/18 08:57 Dose: 10 mg Methylprednisolone Sodium Succinate (Solu-Medrol 40 Mg) 40 mg IV 0900,2100 [facility] Last Admin: 05/26/18 20:59 Dose: 40 mg Metoprolol Succinate (Toprol Xl Tab*) 100 mg PO DAILY [facility] Last Admin: 05/26/18 08:57 Dose: 100 mg Nystatin (Nystatin Top Powder*) 1 applic TOPICAL BID [facility] Last Admin: 05/26/18 21:10 Dose: 1 applic Pharmacy Consult (Zosyn Per Pharmacy*) 1 note FOLLOW UP .ZOSYN PER PHARMACY [facility] Polyvinyl Alcohol (Polyvinyl Alcohol 1.4% Opth*) 1 drop LEFT EYE QID [facility] Last Admin: 05/26/18 21:10 Dose: 1 drop Simethicone (Mylicon Tab*) 80 mg PO Q12H PRN PRN Reason: INDIGESTION Valsartan (Diovan Tab*) 160 mg PO DAILY [facility] Last Admin: 05/26/18 08:57 Dose: 160 mg Vital Signs: Vital Signs: Temp Pulse Resp BP Pulse Ox 98.5 F 63 20 148/57 99 05/26/18 17:16 05/26/18 17:16 05/26/18 17:16 05/26/18 17:16 05/26/18 17:16 Patient Weight: Weight 59.1 kg Intake and Output: Intake & Output 05/24/18 05/25/18 05/26/18 05/27/18 06:59 06:59 06:59 06:59 Intake Total 433.9 718 1312.1 310 Output Total 920 2320 1925 1134 Balance -486.1 -1602 -612.9 -824 Weight 65.2 kg 60 kg 59.1 kg Intake: IV Fluids 213.9 249 69.1 NS (0.9%) 213.9 249 69.1 IVPB 24 130 NS (0.9%) 24 130 Medicated IV 205 233 Zosyn 205 233 Oral 220 240 880 310 Output: Roth 920 2320 1925 1134 Other: Date of Last Bowel 05/24/2018 05/24/2018 Movement # Bowel Movements 1 1 1 Estimated Stool Amount Medium Medium Medium ADLs: Meal Record Start: 05/21/18 18: 05 Freq: DAILY@0900,1400,1800 Status: Active Protocol: Created 05/21/18 18:05 System (Rec: 05/21/18 18:05 System MED-M04) Document 05/22/18 09:00 [id number] (Rec: 05/22/18 09:30 [id number] MED-C07) Document 05/22/18 14:00 VTB6845 (Rec: 05/22/18 14:16 [id number] MED-M04) Document 05/22/18 18:00 KFR2700 (Rec: 05/22/18 18:13 FOT1215 ICU-C12) Document 05/23/18 08:00 VDT9424 (Rec: 05/23/18 17:50 [id number] ICU-C15) Document 05/23/18 13:00 VEO8999 (Rec: 05/23/18 17:50 FYG6981 ICU-C15) Document 05/23/18 18:00 MXB7002 (Rec: 05/23/18 18:45 [id number] ICU-C15) Document 05/24/18 09:00 MTJ3529 (Rec: 05/24/18 10:47 BUG3625 ICU-C15) Document 05/24/18 14:00 KAI9559 (Rec: 05/24/18 14:09 HCC3146 ICU-M30) Document 05/25/18 09:00 FMU4393 (Rec: 05/25/18 09:24 XYF7887 ICU-C16) Document 05/25/18 13:14 JRV6583 (Rec: 05/25/18 13:14 NMX4245 ICU-C20) Document 05/25/18 18:00 IQT2928 (Rec: 05/25/18 18:58 ERI6226 ICU-C14) Document 05/26/18 09:00 YQR1050 (Rec: 05/26/18 10:08 LVR2374 ICU-C15) Document 05/26/18 14:00 WLX6708 (Rec: 05/26/18 14:06 FTD8108 ICU-C15) Document 05/26/18 18:00 MIM3887 (Rec: 05/26/18 21:18 IKA1865 MED-C07) ADLs: Meal Record Start: 05/22/18 19: 41 Freq: 09,13,18 Status: Complete Protocol: Created 05/22/18 19:41 DJW0082 (Rec: 05/22/18 19:41 [id number] ICU-C15) ADLs: Meal Record Start: 05/26/18 21: 17 Freq: Status: Active Protocol: Created 05/26/18 21:17 [id number] (Rec: 05/26/18 21:17 [id number] MED-C07) Intake and Output Start: 05/21/18 13: 02 Freq: 06,14,2200 Status: Active Protocol: Created 05/21/18 13:02 System (Rec: 05/21/18 13:02 System ED-C22) Document 05/26/18 11:48 KTI9534 (Rec: 05/26/18 11:48 DSW1830 ICU-C15) Document 05/26/18 13:11 ZWA5497 (Rec: 05/26/18 13:11 QGG3734 ICU-C15) Document 05/26/18 14:00 EFL9390 (Rec: 05/26/18 14:07 QNA9349 ICU-C15) Intake and Output Start: 05/21/18 18: 05 Freq: DAILY@0600,1400,2200 Status: Active Protocol: Created 05/21/18 18:05 System (Rec: 05/21/18 18:05 System MED-M04) Document 05/21/18 22:00 RWY2468 (Rec: 05/21/18 22:46 XJE1004 MED-C02) Document 05/22/18 05:25 LNC5321 (Rec: 05/22/18 05:25 BUP4518 MED-C05) Document 05/22/18 06:00 YRE6728 (Rec: 05/22/18 06:09 DCW1955 MED-C09) Document 05/22/18 14:00 PQH5268 (Rec: 05/22/18 14:17 KSN2958 MED-M04) Intake and Output Start: 05/22/18 19: 41 Freq: Q1HR Status: Complete Protocol: Document 05/22/18 15:30 RDU3661 (Rec: 05/22/18 20:14 GPK9313 ICU-C15) Document 05/22/18 17:00 NTL8093 (Rec: 05/22/18 20:14 XZL9149 ICU-C15) Document 05/22/18 18:00 JTJ4125 (Rec: 05/22/18 20:14 WIR2517 ICU-C15) Document 05/22/18 19:00 JCH9769 (Rec: 05/22/18 20:15 FAS1820 ICU-C15) Created 05/22/18 19:41 WNT9017 (Rec: 05/22/18 19:41 DWJ9710 ICU-C15) Document 05/22/18 20:58 EWC0104 (Rec: 05/22/18 20:58 ZDG6059 ICU-M30) Document 05/22/18 22:16 XAH2364 (Rec: 05/22/18 22:30 KBD2242 ICU-C12) Document 05/22/18 23:16 VJD2093 (Rec: 05/22/18 23:37 NXW5725 ICU-C12) Document 05/23/18 01:00 EAI4224 (Rec: 05/23/18 01:46 JCA6410 ICU-C12) Document 05/23/18 03:00 LPH8900 (Rec: 05/23/18 03:17 SLR2726 ICU-C15) Document 05/23/18 04:00 QFY7440 (Rec: 05/23/18 04:23 QXD6225 ICU-C15) Document 05/23/18 05:00 TUF7450 (Rec: 05/23/18 05:55 SIZ7000 ICU-C15) Document 05/23/18 06:00 ZYL4079 (Rec: 05/23/18 06:48 MWO1600 ICU-C15) Document 05/23/18 08:00 MZS5723 (Rec: 05/23/18 16:53 BAT2593 ICU-C15) Document 05/23/18 12:00 AGV6926 (Rec: 05/23/18 16:53 JQZ3422 ICU-C15) Document 05/23/18 14:00 AWB8450 (Rec: 05/23/18 16:53 RQF1199 ICU-C15) Document 05/23/18 15:00 UJX1365 (Rec: 05/23/18 18:43 VTZ8819 ICU-C15) Document 05/23/18 16:00 VTO6593 (Rec: 05/23/18 18:43 WBD5084 ICU-C15) Document 05/23/18 17:00 HNK6719 (Rec: 05/23/18 18:43 UYU5856 ICU-C15) Document 05/23/18 18:00 OMW9274 (Rec: 05/23/18 18:43 NGV5141 ICU-C15) Document 05/23/18 19:00 YTM5469 (Rec: 05/23/18 20:52 XTI1913 ICU-M30) Document 05/23/18 20:00 EDP9146 (Rec: 05/23/18 20:54 RGB8012 ICU-M30) Document 05/23/18 22:00 IHC8163 (Rec: 05/23/18 22:35 IRI6208 ICU-M30) Document 05/23/18 23:00 JNR3815 (Rec: 05/24/18 00:03 QSH9286 ICU-M30) Document 05/24/18 00:00 NWJ3110 (Rec: 05/24/18 00:04 VHZ9116 ICU-M30) Document 05/24/18 01:00 RAR4003 (Rec: 05/24/18 01:58 DBU3262 ICU-M30) Document 05/24/18 02:00 RGG3170 (Rec: 05/24/18 02:45 ZJN1906 ICU-C10) Document 05/24/18 03:00 IMK9389 (Rec: 05/24/18 03:07 MLL9157 ICU-C10) Document 05/24/18 04:00 XCY5505 (Rec: 05/24/18 04:18 IEL7189 ICU-C10) Document 05/24/18 05:00 BQA4558 (Rec: 05/24/18 05:41 BKN6941 ICU-M30) Document 05/24/18 06:00 JEU5944 (Rec: 05/24/18 06:19 PPA7772 ICU-M30) Document 05/24/18 07:00 TJN9929 (Rec: 05/24/18 07:51 SQJ1934 ICU-L03) Document 05/24/18 08:00 FBB8624 (Rec: 05/24/18 08:55 CTW3170 ICU-C15) Document 05/24/18 10:21 JSL4171 (Rec: 05/24/18 10:21 BUV6963 ICU-M30) Document 05/24/18 11:00 APH1976 (Rec: 05/24/18 11:03 PIY9674 ICU-C15) Document 05/24/18 12:00 UAG3044 (Rec: 05/24/18 12:11 LTJ2142 ICU-C15) Document 05/24/18 13:00 UAK8813 (Rec: 05/24/18 14:08 TLP2682 ICU-M30) Document 05/24/18 14:00 YLL8697 (Rec: 05/24/18 14:09 PXQ4646 ICU-M30) Document 05/24/18 15:00 RMG1611 (Rec: 05/24/18 15:27 LZX2157 ICU-C15) Document 05/24/18 16:59 LXS9593 (Rec: 05/24/18 16:59 OHF2873 ICU-C25) Document 05/24/18 17:00 NLL1133 (Rec: 05/24/18 17:24 GEI0906 ICU-C15) Document 05/24/18 19:00 YRS8179 (Rec: 05/24/18 20:11 IWX4760 ICU-M30) Document 05/24/18 20:00 RTO6750 (Rec: 05/24/18 20:11 ZBD3364 ICU-M30) Document 05/24/18 21:00 CYT5168 (Rec: 05/24/18 21:17 SMT0090 ICU-M30) Document 05/24/18 21:57 JVL5664 (Rec: 05/24/18 22:07 DFT1673 ICU-C15) Document 05/24/18 23:00 REG8868 (Rec: 05/24/18 23:48 BLE3525 ICU-C15) Document 05/24/18 23:48 QOR7745 (Rec: 05/24/18 23:48 XCO8959 ICU-C15) Document 05/25/18 01:00 NTE7654 (Rec: 05/25/18 01:19 QIH8764 ICU-C15) Document 05/25/18 02:00 AZW3028 (Rec: 05/25/18 02:17 ZPW4424 ICU-C15) Document 05/25/18 03:00 SDE0595 (Rec: 05/25/18 04:10 KLB5908 ICU-C15) Document 05/25/18 04:00 EAN5200 (Rec: 05/25/18 04:10 HLT6120 ICU-C15) Document 05/25/18 05:00 QNB2259 (Rec: 05/25/18 05:11 TBX2014 ICU-C15) Document 05/25/18 06:00 IQR6309 (Rec: 05/25/18 06:20 ZYE8584 ICU-C15) Document 05/25/18 08:25 XNN0824 (Rec: 05/25/18 08:25 UCT2531 ICU-M30) Document 05/25/18 09:00 QOF6940 (Rec: 05/25/18 09:00 GRV1225 ICU-M30) Document 05/25/18 10:00 FGA5661 (Rec: 05/25/18 15:08 BTC8546 ICU-C15) Document 05/25/18 11:00 ZUV1676 (Rec: 05/25/18 15:08 MWV1632 ICU-C15) Document 05/25/18 12:00 IVU6153 (Rec: 05/25/18 15:08 JPE3003 ICU-C15) Document 05/25/18 13:00 QEC9482 (Rec: 05/25/18 15:08 PNH0992 ICU-C15) Document 05/25/18 14:00 UWK0575 (Rec: 05/25/18 15:08 AQT2283 ICU-C15) Document 05/25/18 15:00 NIV7277 (Rec: 05/25/18 15:08 EWL4619 ICU-C15) Document 05/25/18 16:00 RYT5394 (Rec: 05/25/18 18:03 SBH8242 ICU-M30) Document 05/25/18 17:00 CGY5571 (Rec: 05/25/18 18:03 AIS8402 ICU-M30) Document 05/25/18 18:00 KUR3507 (Rec: 05/25/18 18:03 XBF3265 ICU-M30) Document 05/25/18 19:00 VDH5183 (Rec: 05/25/18 19:55 WHE3492 ICU-M30) Document 05/25/18 20:00 BRE1061 (Rec: 05/25/18 21:01 AGD8631 ICU-C15) Document 05/25/18 21:00 KUX4142 (Rec: 05/25/18 21:10 SGV6055 ICU-C15) Document 05/25/18 22:00 AEQ3993 (Rec: 05/25/18 22:11 IZN8991 ICU-C15) Document 05/25/18 23:00 HME8370 (Rec: 05/25/18 23:20 RCO2727 ICU-C25) Document 05/25/18 23:21 GIU8626 (Rec: 05/25/18 23:33 AID5412 ICU-C25) Document 05/26/18 03:28 GQC1404 (Rec: 05/26/18 03:38 QVL6511 ICU-C25) Document 05/26/18 04:47 EMB0596 (Rec: 05/26/18 04:48 YYR5912 ICU-C25) Document 05/26/18 06:00 TOZ9630 (Rec: 05/26/18 06:17 XHS7782 ICU-M30) Document 05/26/18 07:00 FQS1492 (Rec: 05/26/18 07:38 QNY8287 ICU-M30) Document 05/26/18 08:00 CAE3837 (Rec: 05/26/18 08:08 NUH2661 ICU-C15) Document 05/26/18 10:00 KUA7184 (Rec: 05/26/18 10:08 HQB9718 ICU-C15) Eyes: No Scleral Icterus, - - Mild R eye injected conjunctiva Ears/Nose/Mouth/Throat: Mucous Membranes Moist, - - Adentulous Neck: NL Appearance and Movements; NL JVP, Trachea Midline, No Thyroid Enlargement, Masses Cardiovascular: NL Sounds; No Murmurs; No JVD, RRR, No Edema Abdominal: NL Sounds; No Tenderness; No Distention, No Hepatosplenomegaly Extremities: No Edema Neurological: - - Oriented to self - Assessment Assessment: 88 yo with moderate dementia resident of [facility] presented with cough & SOB diagnosed with pneumonia and COPD - Plan Consult Plan (MU): Palliative Plan: Spoke with son and grandson, separately. At this time they are not interested in hospice. Pt is happy at [facility] and plans on going back there. Family wants her to be transported to hospital if she gets ill in the future. KPS 50%, PPS 50% baseline. MOLST was completed during this hospitalization and is on the chart. - Time On Unit Date of Evaluation: 05/26/18 Hospice Consult Time in: 04:00 Hospice Consult Time Out: 05:30 Hospice Consult Time Total: 90 > 50% of Time Spend In Counseling or Coordinating Care: Yes
[2018-05-27] MEDS: Heparin VIAL(*) 5000 UNITS/ML VIAL (FIVE THOUSAND) SUBCUT SCH ×3 (04:53→22:33)
[2018-05-27 05:14] LABS: ABS Basophils 0 10^3/ul (0-0.2); ABS Eosinophils 0 10^3/ul (0-0.6); ABS Lymphocytes 0.5 10^3/ul (1.0-4.8); ABS Monocytes 0.2 10^3/ul (0-0.8); ABS Neutrophils 6.6 10^3/ul (1.5-7.7); ABS Nucleated RBC 0 10^3/ul; Eosinophil % 0 %; Hematocrit 44 % (35-47); Hemoglobin 14.4 g/dl (12.0-16.0); Lymphocyte % 7.4 %; Mean Corpuscular HGB Conc 33 g/dl (31-36); Mean Corpuscular Hemoglobin 30 pg (27-31); Mean Corpuscular Volume 91 fL (80-97); Mean Platelet Volume 8.5 fL (7.4-10.4); Nucleated Red Blood Cells % 0; Platelet Count 298 10^3/ul (150-450); Red Blood Count 4.84 10^6/ul (4.00-5.40); Red Cell Distribution Width 13 % (10.5-15); White Blood Count 7.3 10^3/ul (3.5-10.8)
[2018-05-27 05:27] LABS: BUN/Creatinine Ratio 38.7 (8-20); Calcium 10.2 mg/dL (8.6-10.3); EGFR African American 51.7 (>60); EGFR Non-African American 42.7 (>60)
[2018-05-27] MEDS: ZOSYN 3.375 GM Q8H per EXTENDED INFUSION IVPB SCH ×6 (05:45→22:33)
--- NOTE | 2018-05-27 07:25 | PN ---
Subjective Date of Service: 05/27/18 Interval History: HD #6 on 05/27/18 88 yo F with PMH dementia, HTN, Type 2 DM, possible HFpEF, COPD who presented in hypoxic resp failure with fever thought to be 2/2 to PNA No overnight events VSS: BP stable, 67, 95-93% on 5L NC, 20, 99.1 tmax. Has had poor oral intake in the last 24 hours, sodium high on AM labs. Had CXR this morning, mildly improving edema but stable L pleural effusion Seen this morning, sleeping in bed, rouses easily, but slightly confused per her baseline, did eat breakfast, palliative care is seeing patient as well and they have been in contact with her son, no interest in hospice and wants to return to assisted living/SNF when able. Denies CP, GI/ or MSK complaints, does have ongoing mild BELLO. Objective Active Medications: Acetaminophen (Tylenol Tab*) 650 mg PO Q4H PRN PRN Reason: FEVER/PAIN Albuterol (Ventolin 2.5 Mg/3 Ml Neb.Janel*) 2.5 mg INH [id number] AWAKE PRN PRN Reason: sob/wheezing Albuterol/Ipratropium (Duoneb (Albuterol 2.5 Mg/Ipratropium 0.5 Mg)) 1 neb INH Q4H PRN PRN Reason: SOB/WHEEZING Amlodipine Besylate (Norvasc Tab*) 10 mg PO DAILY [facility] Last Admin: 05/26/18 08:56 Dose: 10 mg Bacitracin (Bacitracin Ophth.Oint*) 1 applic BOTH EYES TID [facility] Last Admin: 05/26/18 21:12 Dose: 1 applic Dextrose (D50w Syringe 50 Ml*) 12.5 gm IV PUSH .FOR FS < 60 - SS PRN PRN Reason: FS < 60 Donepezil HCl (Aricept Tab*) 10 mg PO BEDTIME [facility] Last Admin: 05/26/18 20:59 Dose: 10 mg Duloxetine HCl (Cymbalta Cap*) 30 mg PO DAILY [facility] Last Admin: 05/26/18 08:56 Dose: 30 mg Furosemide (Lasix Iv*) 40 mg IV DAILY [facility] Last Admin: 05/26/18 08:56 Dose: 40 mg Guaifenesin (Mucinex*) 600 mg PO BID [facility] Last Admin: 02/18/19 20:59 Dose: 600 mg Heparin Sodium (Porcine) (Heparin Vial(*)) 5,000 units SUBCUT Q8HR [facility] Last Admin: 05/27/18 04:53 Dose: 5,000 units Heparin Sodium (Porcine) (Heparin Flush Picc/Ml/Cvc(*)) 1 - 3 ml FLUSH 0600, 1800 [facility]; Protocol Last Admin: 05/27/18 06:01 Dose: Not Given Piperacillin Sod/Tazobactam (Sod 3.375 gm/ Sodium Chloride) 100 mls @ 25 mls/ hr IVPB Q8H [facility] Last Admin: 05/27/18 05:45 Dose: 25 mls/hr Insulin Human Lispro (Humalog*) 0 units SUBCUT AC [facility]; Protocol Last Admin: 05/26/18 17:15 Dose: Not Given Memantine (Namenda Tab*) 10 mg PO DAILY [facility] Last Admin: 05/26/18 08:57 Dose: 10 mg Methylprednisolone Sodium Succinate (Solu-Medrol 40 Mg) 40 mg IV 0900,2100 [facility] Last Admin: 05/26/18 20:59 Dose: 40 mg Metoprolol Succinate (Toprol Xl Tab*) 100 mg PO DAILY [facility] Last Admin: 05/26/18 08:57 Dose: 100 mg Nystatin (Nystatin Top Powder*) 1 applic TOPICAL BID [facility] Last Admin: 05/26/18 21:10 Dose: 1 applic Pharmacy Consult (Zosyn Per Pharmacy*) 1 note FOLLOW UP .ZOSYN PER PHARMACY [facility] Polyvinyl Alcohol (Polyvinyl Alcohol 1.4% Opth*) 1 drop LEFT EYE QID [facility] Last Admin: 05/26/18 21:10 Dose: 1 drop Simethicone (Mylicon Tab*) 80 mg PO Q12H PRN PRN Reason: INDIGESTION Valsartan (Diovan Tab*) 160 mg PO DAILY [facility] Last Admin: 05/26/18 08:57 Dose: 160 mg Vital Signs - 8 hr 05/27/18 00:31 Pulse Rate 63 Respiratory 20 Rate O2 Sat by Pulse 99 Oximetry Oxygen Devices in Use Now: Nasal Cannula Appearance: Pleasant woman iN NAD Ears/Nose/Mouth/Throat: - - Dry Neck: NL Appearance and Movements; NL JVP Respiratory: Symmetrical Chest Expansion and Respiratory Effort, - - Rhocnhi and crackles, diminshed a L Lower base Cardiovascular: NL Sounds; No Murmurs; No JVD, RRR Abdominal: NL Sounds; No Tenderness; No Distention Lymphatic: No Cervical Adenopathy Skin: No Rash or Ulcers Neurological: - - Oriented to self Result Diagrams: 05/27/18 05:00 05/27/18 05:00 Microbiology and Other Data: Influenza: Negative Blood Cx Assess/Plan/Problems-Billing 88 yo F with PMH dementia, HTN, Type 2 DM, possible HFpEF, COPD who presented in hypoxic resp failure with fever thought to be 2/2 to PNA - Patient Problems (1) Acute hypoxemic respiratory failure Current Visit: Yes Status: Acute Code(s): J96.01 - ACUTE RESPIRATORY FAILURE WITH HYPOXIA SNOMED Code(s): 076735158 Comment: -Acute hypoxemic and hypercapnic resp failure per admission, 05/10 to PNA and COPD exacerbation, CXR c/w chronic COPD with hyperinflation poss PNA -Needing BIPAP at night and Oxymask or 5L NC during day-not wearing BiPAP -Last CXR 05/24 pleural effusion, cardiomegaly, edema, has been on Lasix -Currently improving on 05/27 CXR though persistent effusion on L (2) Pneumonia Current Visit: Yes Status: Acute Code(s): J18.9 - PNEUMONIA, UNSPECIFIED ORGANISM SNOMED Code(s): 959008505 Comment: Poss Pneumonia and blood culture pos for Staph Hominis, repeat culture neg, Flu neg -s/p Azithromycin and Ceftriaxone 05/21-05/24 total of 3 days -05/24 started Zosyn for HCAP coverage Day 06/12-10 on 05/27, continue for now (3) COPD exacerbation Current Visit: Yes Status: Acute Code(s): J44.1 - CHRONIC OBSTRUCTIVE PULMONARY DISEASE W (ACUTE) EXACERBATION SNOMED Code(s): 916460325 Comment: COPD Exacerbation with poss underlying pneumonia -On Solumedrol 40 mg IV Q8h starting 05/24 and Duoneb ATC, will space to q 12 hours, then change to PO Prednisone 05/28 -Remains on Vanc/Zosyn, on IV Solumedrol (4) Acute CHF Current Visit: Yes Status: Acute Code(s): I50.9 - HEART FAILURE, UNSPECIFIED SNOMED Code(s): 02947895 Comment: -Echo 05/23 with EF 70%, LVH, possible HFpEF -She diuresed ~1925ml this past 24 hours, mild dehydration on BMP 05/26, K replaced 05/26, will attempt again today 40meq -Recd lasix 40 mg iv q day since 05/23, stop now- not giving 05/27 dose, will see if she can replete by oral intake instead of fluids -Last CXR with edema and R and L pleural effusion, will attempt to keep slightly dry, repeat CXR 05/27 sows improving aeration of lung fiels but persitent effusion (5) Type II diabetes mellitus Current Visit: Yes Status: Acute Comment: Sugars remain under good control. Continue lispro sliding scale, metformin is on hold. (6) HTN (hypertension) Current Visit: Yes Status: Acute Code(s): I10 - ESSENTIAL (PRIMARY) HYPERTENSION SNOMED Code(s): 04750425 Comment: BP is under ok control. Continue amlodipine, valsartan and metoprolol. (7) Dementia Current Visit: Yes Status: Acute Code(s): F03.90 - UNSPECIFIED DEMENTIA WITHOUT BEHAVIORAL DISTURBANCE SNOMED Code(s): 53854123 Comment: Continue aricept and namenda. (8) DVT prophylaxis Current Visit: Yes Status: Acute Code(s): DAF4571 - SNOMED Code(s): 200674881 Comment: SQ heparin (9) DNR (do not resuscitate) Current Visit: Yes Status: Acute Comment: DNR DNI with Family yesterday, son and grandson Pt's prognosis remains gaurded but they hopew for return to [facility], will need STR prior Status and Disposition: Inpatient
[2018-05-27] MEDS: Insulin LISPRO* 1 UNITS UNIT SUBCUT SCH ×3 (08:06→17:39)
[2018-05-27] MEDS ORDERED: Potassium Chlor TAB* 20 MEQ TAB.ER PO SCH (09:00)
[2018-05-27] MEDS: Valsartan TAB* 160 MG PO SCH (10:11)
[2018-05-27] MEDS: Nystatin TOP POWDER* 15 GM BTL TOPICAL SCH ×2 (10:11→21:08)
[2018-05-27] MEDS: Metoprolol Succinate XL TAB* 100 MG PO SCH (10:11)
[2018-05-27] MEDS: guaiFENesin ER TAB 600 MG PO SCH ×2 (10:11→21:08)
[2018-05-27] MEDS: Memantine TAB* 10 MG PO SCH (10:11)
[2018-05-27] MEDS: DULoxetine DR CAP* 30 MG CAP.DR PO SCH (10:11)
[2018-05-27] MEDS: Bacitracin OPHTH.OINT* 3.5 GM BOTH EYES SCH ×3 (10:13→21:09)
[2018-05-27] MEDS: Artificial Tears* 15 ML BTL LEFT EYE SCH ×4 (10:13→22:33)
[2018-05-27] MEDS: methylPREDNISolone SOD 40 MG* 1 ML VIAL IV SCH ×2 (10:22→21:09)
[2018-05-27] MEDS: amLODIPine TAB* 5 MG PO SCH (10:22)
[2018-05-27] MEDS ORDERED: Potassium Chloride LIQUID* 20 MEQ PACKET PO SCH (19:00)
[2018-05-27] MEDS: Donepezil TAB* 5 MG PO SCH (21:08)
[2018-05-28] MEDS: Heparin VIAL(*) 5000 UNITS/ML VIAL (FIVE THOUSAND) SUBCUT SCH ×3 (06:05→21:55)
[2018-05-28] MEDS: ZOSYN 3.375 GM Q8H per EXTENDED INFUSION IVPB SCH ×6 (06:05→21:51)
[2018-05-28 06:23] LABS: ABS Basophils 0 10^3/ul (0-0.2); ABS Eosinophils 0 10^3/ul (0-0.6); ABS Lymphocytes 0.7 10^3/ul (1.0-4.8); ABS Monocytes 0.2 10^3/ul (0-0.8); ABS Neutrophils 8.8 10^3/ul (1.5-7.7); ABS Nucleated RBC 0 10^3/ul; Eosinophil % 0.1 %; Hematocrit 45 % (35-47); Hemoglobin 14.6 g/dl (12.0-16.0); Lymphocyte % 6.8 %; Mean Corpuscular HGB Conc 33 g/dl (31-36); Mean Corpuscular Hemoglobin 30 pg (27-31); Mean Corpuscular Volume 91 fL (80-97); Mean Platelet Volume 8.2 fL (7.4-10.4); Nucleated Red Blood Cells % 0; Platelet Count 269 10^3/ul (150-450); Red Blood Count 4.94 10^6/ul (4.00-5.40); Red Cell Distribution Width 13 % (10.5-15); White Blood Count 9.6 10^3/ul (3.5-10.8)
[2018-05-28 06:43] LABS: BUN/Creatinine Ratio 39.8 (8-20); Calcium 10.5 mg/dL (8.6-10.3); EGFR Non-African American 50.5 (>60); Potassium 3.7 mmol/L (3.5-5.0)
[2018-05-28] MEDS ORDERED: NS 0.9% 500 ML* 500 ML IV ONE (08:20)
--- NOTE | 2018-05-28 08:31 | PN ---
Subjective Date of Service: 05/28/18 Interval History: HD #7 on 05/28/18 88 yo F with PMH dementia, HTN, Type 2 DM, possible HFpEF, COPD who presented in hypoxic resp failure with fever thought to be 2/2 to PNA No overnight events VSS: BP slightly high 163/76 otherwise stable. Has had poor oral intake in the last 24 hours, sodium high on AM labs now at 149, will start very gentle fluids repeat BMP. Had CXR still with L pleural effusion Seen this morning, awake, eating breakfast, minimally verbal but smiles and is pleasant, oriented to self, hard of hearing. Denies any complaints "I feel wonderful except for being tired" Palliative care saw patient they have been in contact with her son, no interest in hospice and wants to return to assisted living/SNF when able. Objective Active Medications: Acetaminophen (Tylenol Tab*) 650 mg PO Q4H PRN PRN Reason: FEVER/PAIN Albuterol (Ventolin 2.5 Mg/3 Ml Neb.Janel*) 2.5 mg INH [id number] AWAKE PRN PRN Reason: sob/wheezing Albuterol/Ipratropium (Duoneb (Albuterol 2.5 Mg/Ipratropium 0.5 Mg)) 1 neb INH Q4H PRN PRN Reason: SOB/WHEEZING Amlodipine Besylate (Norvasc Tab*) 10 mg PO DAILY [facility] Last Admin: 05/27/18 10:22 Dose: 10 mg Bacitracin (Bacitracin Ophth.Oint*) 1 applic BOTH EYES TID [facility] Last Admin: 05/27/18 21:09 Dose: 1 applic Dextrose (D50w Syringe 50 Ml*) 12.5 gm IV PUSH .FOR FS < 60 - SS PRN PRN Reason: FS < 60 Donepezil HCl (Aricept Tab*) 10 mg PO BEDTIME [facility] Last Admin: 05/27/18 21:08 Dose: 10 mg Duloxetine HCl (Cymbalta Cap*) 30 mg PO DAILY [facility] Last Admin: 05/27/18 10:11 Dose: 30 mg Guaifenesin (Mucinex*) 600 mg PO BID [facility] Last Admin: 05/27/18 21:08 Dose: 600 mg Heparin Sodium (Porcine) (Heparin Vial(*)) 5,000 units SUBCUT Q8HR [facility] Last Admin: 05/28/18 06:05 Dose: 5,000 units Heparin Sodium (Porcine) (Heparin Flush Picc/Ml/Cvc(*)) 1 - 3 ml FLUSH 0600, 1800 [facility]; Protocol Last Admin: 05/28/18 06:05 Dose: Not Given Piperacillin Sod/Tazobactam (Sod 3.375 gm/ Sodium Chloride) 100 mls @ 25 mls/ hr IVPB Q8H [facility] Last Admin: 05/28/18 06:05 Dose: 25 mls/hr Sodium Chloride (Ns 0.9% 500 Ml*) 500 mls @ 100 mls/hr IV ONCE ONE Stop: 05/28/18 13:19 Insulin Human Lispro (Humalog*) 0 units SUBCUT AC [facility]; Protocol Last Admin: 05/27/18 17:39 Dose: 3 units Memantine (Namenda Tab*) 10 mg PO DAILY [facility] Last Admin: 05/27/18 10:11 Dose: 10 mg Metoprolol Succinate (Toprol Xl Tab*) 100 mg PO DAILY [facility] Last Admin: 05/27/18 10:11 Dose: 100 mg Nystatin (Nystatin Top Powder*) 1 applic TOPICAL BID [facility] Last Admin: 05/27/18 21:08 Dose: 1 applic Pharmacy Consult (Zosyn Per Pharmacy*) 1 note FOLLOW UP .ZOSYN PER PHARMACY [facility] Polyvinyl Alcohol (Polyvinyl Alcohol 1.4% Opth*) 1 drop LEFT EYE QID [facility] Last Admin: 05/27/18 22:33 Dose: 1 drop Prednisone (Deltasone Tab*) 50 mg PO DAILY [facility] Simethicone (Mylicon Tab*) 80 mg PO Q12H PRN PRN Reason: INDIGESTION Valsartan (Diovan Tab*) 160 mg PO DAILY [facility] Last Admin: 05/27/18 10:11 Dose: 160 mg Vital Signs - 8 hr 05/28/18 05/28/18 02:59 03:06 Temperature 98.1 F Pulse Rate 69 67 Respiratory 17 12 Rate Blood Pressure 168/69 163/76 (mmHg) O2 Sat by Pulse 95 95 Oximetry Oxygen Devices in Use Now: Nasal Cannula Appearance: Elderly woman with facial droop on L (chronic) awake alert oriented to self, sitting up eating breakfast Ears/Nose/Mouth/Throat: Clear Oropharnyx, Mucous Membranes Moist Neck: NL Appearance and Movements; NL JVP Respiratory: Symmetrical Chest Expansion and Respiratory Effort, - - CTABL to upper and mid lung [place], distant bases, very scant crackles in LLL Cardiovascular: RRR Abdominal: NL Sounds; No Tenderness; No Distention, No Hepatosplenomegaly Lymphatic: No Cervical Adenopathy Extremities: No Edema Result Diagrams: 05/28/18 05:55 05/28/18 05:55 Microbiology and Other Data: Influenza: Negative Blood Cx Assess/Plan/Problems-Billing 88 yo F with PMH dementia, HTN, Type 2 DM, possible HFpEF, COPD who presented in hypoxic resp failure with fever thought to be 2/2 to PNA - Patient Problems (1) Acute hypoxemic respiratory failure Current Visit: Yes Status: Acute Code(s): J96.01 - ACUTE RESPIRATORY FAILURE WITH HYPOXIA SNOMED Code(s): 902295339 Comment: -Acute hypoxemic and hypercapnic resp failure per admission, 2/ to PNA and COPD exacerbation, CXR c/w chronic COPD with hyperinflation poss PNA -Needing BIPAP at night and nasal cannula during day-not wearing BiPAP and some mild metabolic alkalosis compensatory -Currently improving on 05/27 CXR though persistent effusion on L, diuresis x 3 days with mild hyperNA, will gentle fluid hydration and recheck BMP this evening (2) Pneumonia Current Visit: Yes Status: Acute Code(s): J18.9 - PNEUMONIA, UNSPECIFIED ORGANISM SNOMED Code(s): 499091484 Comment: Poss Pneumonia and blood culture pos for Staph Hominis, repeat culture neg, Flu neg -s/p Azithromycin and Ceftriaxone 05/21-05/24 total of 3 days -05/24 started Zosyn for HAP coverage Day 07/13-10 on 05/28, continue for now (3) COPD exacerbation Current Visit: Yes Status: Acute Code(s): J44.1 - CHRONIC OBSTRUCTIVE PULMONARY DISEASE W (ACUTE) EXACERBATION SNOMED Code(s): 753807972 Comment: COPD Exacerbation with poss underlying pneumonia -On Solumedrol 40 mg IV Q8h starting 05/24 and Duoneb ATC, space to q 12 hours , PO Prednisone 50mg starting 05/28 -Remains on Zosyn for PNA (4) Acute CHF Current Visit: Yes Status: Acute Code(s): I50.9 - HEART FAILURE, UNSPECIFIED SNOMED Code(s): 04954654 Comment: -Echo 05/23 with EF 70%, LVH, possible HFpEF -She diuresed x 3 days 05/23-05/26---mild dehydration on BMP 05/26 and 05/27 persistent hyperNa, low volume fluid challenge and repeat BMP this evening, pt is not able to PO much on her own -Last CXR with edema and R and L pleural effusion, will attempt to keep slightly dry, repeat CXR 05/27 sows improving aeration of lung fiels but persitent effusion (5) Type II diabetes mellitus Current Visit: Yes Status: Acute Comment: Sugars remain under good control. Continue lispro sliding scale, metformin is on hold. (6) HTN (hypertension) Current Visit: Yes Status: Acute Code(s): I10 - ESSENTIAL (PRIMARY) HYPERTENSION SNOMED Code(s): 96600452 Comment: BP is increasing 05/28-- On her home doses of amlodipine, valsartan and metoprolol. --Will watch to see if valsartan should be increased, will liekly increase to 320 (7) Dementia Current Visit: Yes Status: Acute Code(s): F03.90 - UNSPECIFIED DEMENTIA WITHOUT BEHAVIORAL DISTURBANCE SNOMED Code(s): 70560388 Comment: Continue aricept and namenda. (8) DVT prophylaxis Current Visit: Yes Status: Acute Code(s): GKG2357 - SNOMED Code(s): 255939640 Comment: SQ heparin (9) DNR (do not resuscitate) Current Visit: Yes Status: Acute Comment: DNR DNI son and grandson involved in care Pt's prognosis remains gaurded but they hope for return to [facility] Status and Disposition: Inpatient
[2018-05-28] MEDS: Insulin LISPRO* 1 UNITS UNIT SUBCUT SCH ×3 (10:22→17:15)
[2018-05-28] MEDS: Metoprolol Succinate XL TAB* 100 MG PO SCH (10:39)
[2018-05-28] MEDS: Valsartan TAB* 160 MG PO SCH (10:39)
[2018-05-28] MEDS: amLODIPine TAB* 5 MG PO SCH (10:39)
[2018-05-28] MEDS: Artificial Tears* 15 ML BTL LEFT EYE SCH ×4 (11:02→21:57)
[2018-05-28] MEDS: DULoxetine DR CAP* 30 MG CAP.DR PO SCH (11:03)
[2018-05-28] MEDS: guaiFENesin ER TAB 600 MG PO SCH ×2 (11:03→22:07)
[2018-05-28] MEDS: Memantine TAB* 10 MG PO SCH (11:03)
[2018-05-28] MEDS: Bacitracin OPHTH.OINT* 3.5 GM BOTH EYES SCH ×3 (11:03→22:05)
[2018-05-28] MEDS: Nystatin TOP POWDER* 15 GM BTL TOPICAL SCH ×2 (11:16→21:58)
[2018-05-28] MEDS: predniSONE TAB* 50 MG PO SCH (11:16)
[2018-05-28] MEDS ORDERED: Valsartan TAB* 160 MG PO ONE (13:23)
[2018-05-28 18:13] LABS: BUN/Creatinine Ratio 37.5 (8-20); Calcium 10.1 mg/dL (8.6-10.3); EGFR African American 60.4 (>60); EGFR Non-African American 49.9 (>60); Potassium 3.8 mmol/L (3.5-5.0)
[2018-05-28] MEDS: Donepezil TAB* 5 MG PO SCH (22:14)
[2018-05-29] MEDS: ZOSYN 3.375 GM Q8H per EXTENDED INFUSION IVPB SCH ×6 (05:17→22:48)
[2018-05-29 05:20] LABS: Hematocrit 45 % (35-47); Hemoglobin 14.5 g/dl (12.0-16.0); Mean Corpuscular HGB Conc 32 g/dl (31-36); Mean Corpuscular Hemoglobin 29 pg (27-31); Mean Corpuscular Volume 91 fL (80-97); Platelet Count 268 10^3/ul (150-450); Red Blood Count 4.95 10^6/ul (4.00-5.40); Red Cell Distribution Width 13 % (10.5-15); White Blood Count 12.1 10^3/ul (3.5-10.8)
[2018-05-29] MEDS: Heparin VIAL(*) 5000 UNITS/ML VIAL (FIVE THOUSAND) SUBCUT SCH ×3 (05:20→22:48)
[2018-05-29 05:24] LABS: ABS Basophils 0 10^3/ul (0-0.2); ABS Eosinophils 0 10^3/ul (0-0.6); ABS Lymphocytes 0.9 10^3/ul (1.0-4.8); ABS Monocytes 0.6 10^3/ul (0-0.8); ABS Neutrophils 10.6 10^3/ul (1.5-7.7); ABS Nucleated RBC 0 10^3/ul; Eosinophil % 0 %; Lymphocyte % 7.7 %; Nucleated Red Blood Cells % 0.1
[2018-05-29 05:42] LABS: BUN/Creatinine Ratio 39.8 (8-20); Calcium 9.9 mg/dL (8.6-10.3); EGFR African American 68.7 (>60); EGFR Non-African American 56.8 (>60); Potassium 3.3 mmol/L (3.5-5.0)
[2018-05-29] MEDS ORDERED: Potassium Chlor TAB* 20 MEQ TAB.ER PO ONE (08:25)
[2018-05-29] MEDS: Insulin LISPRO* 1 UNITS UNIT SUBCUT SCH ×3 (09:29→17:21)
[2018-05-29] MEDS: guaiFENesin ER TAB 600 MG PO SCH ×3 (09:30→23:03)
[2018-05-29] MEDS: Valsartan TAB* 160 MG PO SCH (09:31)
[2018-05-29] MEDS: predniSONE TAB* 50 MG PO SCH (09:32)
[2018-05-29] MEDS: amLODIPine TAB* 5 MG PO SCH (09:33)
[2018-05-29] MEDS: DULoxetine DR CAP* 30 MG CAP.DR PO SCH (09:34)
[2018-05-29] MEDS: Metoprolol Succinate XL TAB* 100 MG PO SCH (09:34)
[2018-05-29] MEDS: Memantine TAB* 10 MG PO SCH (09:35)
[2018-05-29] MEDS: Bacitracin OPHTH.OINT* 3.5 GM BOTH EYES SCH ×3 (09:36→22:56)
[2018-05-29] MEDS: Nystatin TOP POWDER* 15 GM BTL TOPICAL SCH ×2 (09:37→22:55)
[2018-05-29] MEDS: Artificial Tears* 15 ML BTL LEFT EYE SCH ×4 (09:37→22:56)
[2018-05-29] MEDS ORDERED: Potassium Chloride LIQUID* 20 MEQ PACKET PO ONE (10:00)
--- NOTE | 2018-05-29 16:19 | PN ---
Subjective Date of Service: 05/29/18 Interval History: Patient is pleasantly confused. Alert to self. Nursing expressed concern for possible thrush given patient's mouth appearance. Nystatin ordered. On assessment patient is on 3L NC and O2 saturation is 97%. Denies cp, palpitations, sob, nausea, vomiting, diarrhea, cough, fever, chills Objective Active Medications: Acetaminophen (Tylenol Tab*) 650 mg PO Q4H PRN PRN Reason: FEVER/PAIN Albuterol (Ventolin 2.5 Mg/3 Ml Neb.Janel*) 2.5 mg INH [id number] AWAKE PRN PRN Reason: sob/wheezing Albuterol/Ipratropium (Duoneb (Albuterol 2.5 Mg/Ipratropium 0.5 Mg)) 1 neb INH Q4H PRN PRN Reason: SOB/WHEEZING Amlodipine Besylate (Norvasc Tab*) 10 mg PO DAILY [facility] Last Admin: 05/29/18 09:33 Dose: 10 mg Bacitracin (Bacitracin Ophth.Oint*) 1 applic BOTH EYES TID [facility] Last Admin: 05/29/18 14:19 Dose: 1 applic Dextrose (D50w Syringe 50 Ml*) 12.5 gm IV PUSH .FOR FS < 60 - SS PRN PRN Reason: FS < 60 Donepezil HCl (Aricept Tab*) 10 mg PO BEDTIME [facility] Last Admin: 05/28/18 22:14 Dose: 10 mg Duloxetine HCl (Cymbalta Cap*) 30 mg PO DAILY [facility] Last Admin: 05/29/18 09:34 Dose: 30 mg Guaifenesin (Mucinex*) 600 mg PO BID [facility] Last Admin: 05/29/18 09:47 Dose: Not Given Heparin Sodium (Porcine) (Heparin Vial(*)) 5,000 units SUBCUT Q8HR [facility] Last Admin: 05/29/18 14:19 Dose: 5,000 units Heparin Sodium (Porcine) (Heparin Flush Picc/Ml/Cvc(*)) 1 - 3 ml FLUSH 0600, 1800 [facility]; Protocol Last Admin: 05/29/18 09:37 Dose: Not Given Piperacillin Sod/Tazobactam (Sod 3.375 gm/ Sodium Chloride) 100 mls @ 25 mls/ hr IVPB Q8H [facility] Last Admin: 05/29/18 14:20 Dose: 25 mls/hr Insulin Human Lispro (Humalog*) 0 units SUBCUT AC [facility]; Protocol Last Admin: 05/29/18 13:07 Dose: 3 units Memantine (Namenda Tab*) 10 mg PO DAILY [facility] Last Admin: 05/29/18 09:35 Dose: 10 mg Metoprolol Succinate (Toprol Xl Tab*) 100 mg PO DAILY [facility] Last Admin: 05/29/18 09:34 Dose: 100 mg Nystatin (Nystatin Top Powder*) 1 applic TOPICAL BID [facility] Last Admin: 05/29/18 09:37 Dose: 1 applic Nystatin (Nystatin Suspension*) 200,000 units PO QID [facility] Pharmacy Consult (Zosyn Per Pharmacy*) 1 note FOLLOW UP .ZOSYN PER PHARMACY [facility] Polyvinyl Alcohol (Polyvinyl Alcohol 1.4% Opth*) 1 drop LEFT EYE QID [facility] Last Admin: 05/29/18 13:07 Dose: 1 drop Prednisone (Deltasone Tab*) 50 mg PO DAILY [facility] Last Admin: 05/29/18 09:32 Dose: 50 mg Simethicone (Mylicon Tab*) 80 mg PO Q12H PRN PRN Reason: INDIGESTION Valsartan (Diovan Tab*) 320 mg PO DAILY [facility] Last Admin: 05/29/18 09:31 Dose: 320 mg Vital Signs - 8 hr 05/29/18 05/29/18 11:33 13:17 Temperature 98.0 F Pulse Rate 65 66 Respiratory 22 20 Rate Blood Pressure 162/70 163/80 (mmHg) O2 Sat by Pulse 97 97 Oximetry Oxygen Devices in Use Now: Nasal Cannula Appearance: Comfortable Eyes: No Scleral Icterus Ears/Nose/Mouth/Throat: Clear Oropharnyx, Mucous Membranes Moist Neck: NL Appearance and Movements; NL JVP Respiratory: Symmetrical Chest Expansion and Respiratory Effort, Clear to Auscultation Cardiovascular: NL Sounds; No Murmurs; No JVD, RRR, No Edema Abdominal: NL Sounds; No Tenderness; No Distention Lymphatic: No Cervical Adenopathy Extremities: No Clubbing, Cyanosis Skin: No Rash or Ulcers Neurological: NL Muscle Strength and Tone - Alert to self only, - Nutrition: TPN Result Diagrams: 05/29/18 05:10 05/29/18 05:10 Additional Lab and Data: Laboratory Results - last 24 hr 05/28/18 05/28/18 05/29/18 16:47 17:48 05:10 WBC RBC Hgb Hct MCV MCH MCHC RDW Plt Count MPV Neut % (Auto) Lymph % (Auto) [place] % (Auto) Eos % (Auto) Baso % (Auto) Absolute Neuts (auto) Absolute Lymphs (auto) Absolute Monos (auto) Absolute Eos (auto) Absolute Basos (auto) Absolute Nucleated RBC Nucleated RBC % Sodium 149 H 147 H Potassium 3.8 3.3 L Chloride 111 112 H Carbon Dioxide 31 33 H Anion Gap 7 2 BUN 39 H 37 H Creatinine 1.04 H 0.93 Est GFR ( Amer) 60.4 68.7 Est GFR (Non-Af Amer) 49.9 56.8 BUN/Creatinine Ratio 37.5 H 39.8 H Glucose 197 H 165 H POC Glucose (mg/dL) 174 H Calcium 10.1 9.9 05/29/18 05/29/18 05/29/18 05:10 07:53 12:14 WBC 12.1 H RBC 4.95 Hgb 14.5 Hct 45 MCV 91 MCH 29 MCHC 32 RDW 13 Plt Count 268 MPV 8.0 Neut % (Auto) 87.0 Lymph % (Auto) 7.7 [place] % (Auto) 5.1 Eos % (Auto) 0 Baso % (Auto) 0.2 Absolute Neuts (auto) 10.6 H Absolute Lymphs (auto) 0.9 L Absolute Monos (auto) 0.6 Absolute Eos (auto) 0 Absolute Basos (auto) 0 Absolute Nucleated RBC 0 Nucleated RBC % 0.1 Sodium Potassium Chloride Carbon Dioxide Anion Gap BUN Creatinine Est GFR ( Amer) Est GFR (Non-Af Amer) BUN/Creatinine Ratio Glucose POC Glucose (mg/dL) 159 H 179 H Calcium Microbiology and Other Data: Microbiology 05/25/18 05:00 Blood Line Aerobic Blood Culture - Preliminary No Growth Day 4 05/25/18 05:00 Blood Line Anaerobic Blood Culture - Preliminary No Growth Day 4 05/21/18 13:21 Blood Venous Aerobic Blood Culture - Final No Growth Day 5 05/21/18 13:21 Blood Venous Anaerobic Blood Culture - Final No Growth Day 5 05/21/18 12:47 Blood Venous Aerobic Blood Culture - Final Staphylococcus Hominis 05/21/18 12:47 Blood Venous Anaerobic Blood Culture - Final Staphylococcus Hominis 05/21/18 12:47 Blood Venous Blood MRSA/MSSA (PCR) - Final Mrsa Negative S.aureus Negative 05/22/18 02:00 Urine Legionella Urinary Antigen - Final Negative Legionella Antigen 05/22/18 02:00 Urine Streptococcus pneumoniae Ag Screen - Final Negative S. pneumo Antigen 05/21/18 20:12 Nasal Nasal Screen MRSA (PCR) - Final Mrsa Not Detected 05/21/18 13:50 Nasopharyngeal Influenza Types A,B Antigen - Final Specimen received for Influenza A/B Molecular testing Assess/Plan/Problems-Billing 88 yo F with PMH dementia, HTN, Type 2 DM, possible HFpEF, COPD who presented in hypoxic resp failure with fever thought to be 2/2 to PNA - Patient Problems (1) Acute hypoxemic respiratory failure Comment: - Acute hypoxemic and hypercapnic resp failure per admission, 2/2 to PNA and COPD exacerbation - Maintain O2 saturation overnight and during day on 3L nasal cannula -Currently improving on 05/27 CXR though persistent effusion on L (2) Pneumonia Comment: - Poss Pneumonia and blood culture pos for Staph Hominis, repeat culture neg, Flu neg - S/P Azithromycin and Ceftriaxone 05/21-05/24 total of 3 days - 05/24 started Zosyn for HAP coverage Day 08/12-10 on 05/28, continue for now (3) Acute CHF Comment: - Echo 05/23 with EF 70%, LVH, possible HFpEF - She diuresed x 3 days 05/23-05/26---mild dehydration on BMP 05/26 and 05/27 - Slight hyperNA today - Last CXR with edema and R and L pleural effusion, will attempt to keep slightly dry, repeat CXR 05/27 sows improving aeration of lung fiels but persitent effusion (4) COPD exacerbation Comment: - COPD Exacerbation with poss underlying pneumonia - On Solumedrol 40 mg IV Q8h starting 05/24 and Duoneb ATC, space to q 12 hours 05/26, PO Prednisone 50mg starting 05/28 -Remains on Zosyn for PNA (5) Dementia Comment: Continue aricept and namenda. (6) HTN (hypertension) Comment: - BP is increasing 05/28-- On her home doses of amlodipine, valsartan and metoprolol. - Started valsartan 320 mg today. - Monitor BP (7) Type II diabetes mellitus Comment: Sugars remain under good control. Continue lispro sliding scale, metformin is on hold. (8) DVT prophylaxis Comment: SQ heparin (9) DNR (do not resuscitate) Comment: DNR DNI son and grandson involved in care Pt's prognosis remains gaurded but they hope for return to [facility] Status and Disposition: Inpatient Attending: Jhony Porter
[2018-05-29] MEDS: Nystatin SUSPENSION* 100000 UNITS/ML 5 ML UDC PO SCH ×2 (17:23→23:02)
[2018-05-29] MEDS: Donepezil TAB* 5 MG PO SCH (23:03)
[2018-05-30] MEDS: ZOSYN 3.375 GM Q8H per EXTENDED INFUSION IVPB SCH ×6 (05:46→22:12)
[2018-05-30] MEDS: Heparin VIAL(*) 5000 UNITS/ML VIAL (FIVE THOUSAND) SUBCUT SCH ×3 (05:54→22:10)
[2018-05-30 05:58] LABS: ABS Basophils 0 10^3/ul (0-0.2); ABS Eosinophils 0 10^3/ul (0-0.6); ABS Monocytes 0.6 10^3/ul (0-0.8); ABS Neutrophils 9.7 10^3/ul (1.5-7.7); ABS Nucleated RBC 0 10^3/ul; Eosinophil % 0.1 %; Hematocrit 43 % (35-47); Lymphocyte % 8.9 %; Mean Corpuscular HGB Conc 33 g/dl (31-36); Mean Corpuscular Hemoglobin 30 pg (27-31); Mean Corpuscular Volume 91 fL (80-97); Nucleated Red Blood Cells % 0; Platelet Count 241 10^3/ul (150-450); Red Blood Count 4.74 10^6/ul (4.00-5.40); Red Cell Distribution Width 13 % (10.5-15); White Blood Count 11.3 10^3/ul (3.5-10.8)
[2018-05-30 06:16] LABS: BUN/Creatinine Ratio 33.3 (8-20); Calcium 9.7 mg/dL (8.6-10.3); EGFR African American 66.2 (>60); EGFR Non-African American 54.7 (>60); Magnesium 2.3 mg/dL (1.9-2.7); Potassium 3.3 mmol/L (3.5-5.0)
[2018-05-30] MEDS: Insulin LISPRO* 1 UNITS UNIT SUBCUT SCH ×3 (08:21→17:51)
[2018-05-30] MEDS ORDERED: Potassium Chlor TAB* 20 MEQ TAB.ER PO ONE (08:30)
[2018-05-30] MEDS ORDERED: NS 0.9% 500 ML* 500 ML IV SCH (09:00)
[2018-05-30] MEDS: DULoxetine DR CAP* 30 MG CAP.DR PO SCH (09:58)
[2018-05-30] MEDS: Metoprolol Succinate XL TAB* 100 MG PO SCH (09:58)
[2018-05-30] MEDS: Memantine TAB* 10 MG PO SCH (09:58)
[2018-05-30] MEDS: Valsartan TAB* 160 MG PO SCH (09:58)
[2018-05-30] MEDS: amLODIPine TAB* 5 MG PO SCH (09:59)
[2018-05-30] MEDS: Bacitracin OPHTH.OINT* 3.5 GM BOTH EYES SCH ×3 (09:59→22:18)
[2018-05-30] MEDS: Nystatin SUSPENSION* 100000 UNITS/ML 5 ML UDC PO SCH ×4 (09:59→22:15)
[2018-05-30] MEDS: Nystatin TOP POWDER* 15 GM BTL TOPICAL SCH ×2 (09:59→22:11)
[2018-05-30] MEDS: predniSONE TAB* 50 MG PO SCH (09:59)
[2018-05-30] MEDS: guaiFENesin ER TAB 600 MG PO SCH (10:00)
[2018-05-30] MEDS ORDERED: Potassium Chloride LIQUID* 20 MEQ PACKET PO ONE (10:00)
[2018-05-30] MEDS: Artificial Tears* 15 ML BTL LEFT EYE SCH ×4 (10:00→22:08)
--- NOTE | 2018-05-30 16:51 | PN ---
Subjective Date of Service: 05/30/18 Interval History: Received update from nurse that patient was having loose stools occasionally. Resting in recliner on assessment. She is on 2L NC. Patient is pleasant and answering ROS questions appropriately. She is alert to self which is baseline. Denies abd pain, nausea, vomiting. Denies cp, palpitations, shortness of breath. Denies cough. Objective Active Medications: Acetaminophen (Tylenol Tab*) 650 mg PO Q4H PRN PRN Reason: FEVER/PAIN Albuterol (Ventolin 2.5 Mg/3 Ml Neb.Janel*) 2.5 mg INH [id number] AWAKE PRN PRN Reason: sob/wheezing Albuterol/Ipratropium (Duoneb (Albuterol 2.5 Mg/Ipratropium 0.5 Mg)) 1 neb INH Q4H PRN PRN Reason: SOB/WHEEZING Amlodipine Besylate (Norvasc Tab*) 10 mg PO DAILY [facility] Last Admin: 05/30/18 09:59 Dose: 10 mg Bacitracin (Bacitracin Ophth.Oint*) 1 applic BOTH EYES TID [facility] Last Admin: 05/30/18 14:42 Dose: 1 applic Dextrose (D50w Syringe 50 Ml*) 12.5 gm IV PUSH .FOR FS < 60 - SS PRN PRN Reason: FS < 60 Donepezil HCl (Aricept Tab*) 10 mg PO BEDTIME [facility] Last Admin: 05/29/18 23:03 Dose: 10 mg Duloxetine HCl (Cymbalta Cap*) 30 mg PO DAILY [facility] Last Admin: 05/30/18 09:58 Dose: 30 mg Guaifenesin (Mucinex*) 600 mg PO BID [facility] Last Admin: 05/30/18 10:00 Dose: Not Given Heparin Sodium (Porcine) (Heparin Vial(*)) 5,000 units SUBCUT Q8HR [facility] Last Admin: 05/30/18 14:42 Dose: 5,000 units Heparin Sodium (Porcine) (Heparin Flush Picc/Ml/Cvc(*)) 1 - 3 ml FLUSH 0600, 1800 [facility]; Protocol Last Admin: 05/30/18 08:21 Dose: Not Given Piperacillin Sod/Tazobactam (Sod 3.375 gm/ Sodium Chloride) 100 mls @ 25 mls/ hr IVPB Q8H [facility] Last Admin: 05/30/18 14:42 Dose: 25 mls/hr Sodium Chloride (Ns 0.9% 500 Ml*) 500 mls @ 75 mls/hr IV PER RATE [facility] Last Admin: 05/30/18 09:56 Dose: 75 mls/hr Insulin Human Lispro (Humalog*) 0 units SUBCUT AC [facility]; Protocol Last Admin: 05/30/18 12:45 Dose: 6 units Memantine (Namenda Tab*) 10 mg PO DAILY [facility] Last Admin: 05/30/18 09:58 Dose: 10 mg Metoprolol Succinate (Toprol Xl Tab*) 100 mg PO DAILY [facility] Last Admin: 05/30/18 09:58 Dose: 100 mg Nystatin (Nystatin Top Powder*) 1 applic TOPICAL BID [facility] Last Admin: 05/30/18 09:59 Dose: 1 applic Nystatin (Nystatin Suspension*) 200,000 units PO QID [facility] Last Admin: 05/30/18 12:45 Dose: 200,000 units Pharmacy Consult (Zosyn Per Pharmacy*) 1 note FOLLOW UP .ZOSYN PER PHARMACY [facility] Polyvinyl Alcohol (Polyvinyl Alcohol 1.4% Opth*) 1 drop LEFT EYE QID [facility] Last Admin: 05/30/18 12:45 Dose: 1 drop Prednisone (Deltasone Tab*) 50 mg PO DAILY [facility] Last Admin: 05/30/18 09:59 Dose: 50 mg Simethicone (Mylicon Tab*) 80 mg PO Q12H PRN PRN Reason: INDIGESTION Valsartan (Diovan Tab*) 320 mg PO DAILY [facility] Last Admin: 05/30/18 09:58 Dose: 320 mg Oxygen Devices in Use Now: None Appearance: Comfortable, NAD Eyes: No Scleral Icterus Ears/Nose/Mouth/Throat: Clear Oropharnyx, Mucous Membranes Moist Neck: NL Appearance and Movements; NL JVP Respiratory: Symmetrical Chest Expansion and Respiratory Effort, Clear to Auscultation Cardiovascular: NL Sounds; No Murmurs; No JVD, RRR, No Edema Abdominal: NL Sounds; No Tenderness; No Distention Lymphatic: No Cervical Adenopathy Extremities: No Edema Skin: No Rash or Ulcers Neurological: NL Muscle Strength and Tone, - - Alert to self Nutrition: Taking PO's Result Diagrams: 05/30/18 05:45 05/30/18 05:45 Additional Lab and Data: Laboratory Results - last 24 hr 05/29/18 05/30/18 05/30/18 17:02 05:45 05:45 WBC 11.3 H RBC 4.74 Hgb 14.0 Hct 43 MCV 91 MCH 30 MCHC 33 RDW 13 Plt Count 241 MPV 8.0 Neut % (Auto) 85.9 Lymph % (Auto) 8.9 [place] % (Auto) 4.8 Eos % (Auto) 0.1 Baso % (Auto) 0.3 Absolute Neuts (auto) 9.7 H Absolute Lymphs (auto) 1.0 Absolute Monos (auto) 0.6 Absolute Eos (auto) 0 Absolute Basos (auto) 0 Absolute Nucleated RBC 0 Nucleated RBC % 0 Sodium 147 H Potassium 3.3 L Chloride 108 Carbon Dioxide 34 H Anion Gap 5 BUN 32 H Creatinine 0.96 H Est GFR ( Amer) 66.2 Est GFR (Non-Af Amer) 54.7 BUN/Creatinine Ratio 33.3 H Glucose 136 H POC Glucose (mg/dL) 256 H Calcium 9.7 Magnesium 2.3 05/30/18 05/30/18 08:19 12:06 WBC RBC Hgb Hct MCV MCH MCHC RDW Plt Count MPV Neut % (Auto) Lymph % (Auto) [place] % (Auto) Eos % (Auto) Baso % (Auto) Absolute Neuts (auto) Absolute Lymphs (auto) Absolute Monos (auto) Absolute Eos (auto) Absolute Basos (auto) Absolute Nucleated RBC Nucleated RBC % Sodium Potassium Chloride Carbon Dioxide Anion Gap BUN Creatinine Est GFR ( Amer) Est GFR (Non-Af Amer) BUN/Creatinine Ratio Glucose POC Glucose (mg/dL) 112 H 209 H Calcium Magnesium Microbiology and Other Data: Microbiology 05/25/18 05:00 Blood Line Aerobic Blood Culture - Final No Growth Day 5 05/25/18 05:00 Blood Line Anaerobic Blood Culture - Final No Growth Day 5 05/21/18 13:21 Blood Venous Aerobic Blood Culture - Final No Growth Day 5 05/21/18 13:21 Blood Venous Anaerobic Blood Culture - Final No Growth Day 5 05/21/18 12:47 Blood Venous Aerobic Blood Culture - Final Staphylococcus Hominis 05/21/18 12:47 Blood Venous Anaerobic Blood Culture - Final Staphylococcus Hominis 05/21/18 12:47 Blood Venous Blood MRSA/MSSA (PCR) - Final Mrsa Negative S.aureus Negative 05/22/18 02:00 Urine Legionella Urinary Antigen - Final Negative Legionella Antigen 05/22/18 02:00 Urine Streptococcus pneumoniae Ag Screen - Final Negative S. pneumo Antigen 05/21/18 20:12 Nasal Nasal Screen MRSA (PCR) - Final Mrsa Not Detected 05/21/18 13:50 Nasopharyngeal Influenza Types A,B Antigen - Final Specimen received for Influenza A/B Molecular testing Assess/Plan/Problems-Billing 88 yo F with PMH dementia, HTN, Type 2 DM, possible HFpEF, COPD who presented in hypoxic resp failure with fever thought to be 2/2 to PNA - Patient Problems (1) Acute hypoxemic respiratory failure Comment: - Acute hypoxemic and hypercapnic resp failure per admission, 2/2 to PNA and COPD exacerbation - Maintain O2 saturation overnight and during day on 2L nasal cannula - Currently improving on 05/27 CXR though persistent effusion on L (2) Pneumonia Comment: - Poss Pneumonia and blood culture pos for Staph Hominis, repeat culture neg, Flu neg - S/P Azithromycin and Ceftriaxone 05/21-05/24 total of 3 days - 05/24 started Zosyn for HAP coverage Day 09/12-10, continue for now (3) Acute CHF Comment: - Echo 05/23 with EF 70%, LVH, possible HFpEF - She diuresed x 3 days 05/23-05/26---mild dehydration on BMP 05/26 and 05/27 - Slight hyperNA and dry today; gentle IVF ordered - Last CXR with edema and R and L pleural effusion, will attempt to keep slightly dry, repeat CXR 05/27 shows improving aeration of lung fiels but persitent effusion (4) COPD exacerbation Comment: - COPD Exacerbation with poss underlying pneumonia - On Solumedrol 40 mg IV Q8h starting 05/24 and Duoneb ATC, space to q 12 hours 05/26, PO Prednisone 50mg starting 05/28, Decreased to PO Prednisone 40 mg 05/30 -Remains on Zosyn for PNA (5) Dementia Comment: Continue aricept and namenda. (6) HTN (hypertension) Comment: - BP is increasing 05/28-- On her home doses of amlodipine, valsartan and metoprolol. - Started valsartan 320 mg today. - Monitor BP (7) Type II diabetes mellitus Comment: Sugars remain under good control. Continue lispro sliding scale, metformin is on hold. (8) Diarrhea Comment: - Patient has had a few episodes of diarrhea. - No abd pain/tenderness, nausea, fever, or WBC > 12. - No stool cultures ordered at this time (9) DVT prophylaxis Comment: SQ heparin (10) DNR (do not resuscitate) Comment: DNR DNI son and grandson involved in care Pt's prognosis remains gaurded but they hope for return to [facility] Status and Disposition: Inpatient. D/C back to [facility] Attending: Jhony Porter
[2018-05-30 18:22] LABS: BUN/Creatinine Ratio 35.1 (8-20); Calcium 9.5 mg/dL (8.6-10.3); EGFR African American 65.4 (>60); EGFR Non-African American 54.1 (>60); Potassium 4.3 mmol/L (3.5-5.0)
[2018-05-30] MEDS: Donepezil TAB* 5 MG PO SCH (22:05)
[2018-05-31] MEDS: guaiFENesin ER TAB 600 MG PO SCH ×3 (00:05→23:27)
[2018-05-31] MEDS: ZOSYN 3.375 GM Q8H per EXTENDED INFUSION IVPB SCH ×6 (06:27→21:06)
[2018-05-31] MEDS: Heparin VIAL(*) 5000 UNITS/ML VIAL (FIVE THOUSAND) SUBCUT SCH ×3 (06:27→21:09)
[2018-05-31 06:46] LABS: ABS Basophils 0 10^3/ul (0-0.2); ABS Eosinophils 0 10^3/ul (0-0.6); ABS Lymphocytes 1.4 10^3/ul (1.0-4.8); ABS Monocytes 0.6 10^3/ul (0-0.8); ABS Neutrophils 11.1 10^3/ul (1.5-7.7); ABS Nucleated RBC 0 10^3/ul; Eosinophil % 0.4 %; Hematocrit 42 % (35-47); Hemoglobin 13.8 g/dl (12.0-16.0); Lymphocyte % 10.5 %; Mean Corpuscular HGB Conc 33 g/dl (31-36); Mean Corpuscular Hemoglobin 30 pg (27-31); Mean Corpuscular Volume 90 fL (80-97); Mean Platelet Volume 8.3 fL (7.4-10.4); Nucleated Red Blood Cells % 0; Platelet Count 212 10^3/ul (150-450); Red Blood Count 4.66 10^6/ul (4.00-5.40); Red Cell Distribution Width 13 % (10.5-15); White Blood Count 13.1 10^3/ul (3.5-10.8)
[2018-05-31 07:01] LABS: BUN/Creatinine Ratio 32.9 (8-20); Calcium 9.6 mg/dL (8.6-10.3); EGFR African American 76.2 (>60); Magnesium 2.2 mg/dL (1.9-2.7); Potassium 3.6 mmol/L (3.5-5.0)
[2018-05-31] MEDS: Insulin LISPRO* 1 UNITS UNIT SUBCUT SCH ×3 (08:14→17:26)
[2018-05-31] MEDS: Valsartan TAB* 160 MG PO SCH (09:57)
[2018-05-31] MEDS: amLODIPine TAB* 5 MG PO SCH (09:58)
[2018-05-31] MEDS: predniSONE TAB* 20 MG PO SCH (09:58)
[2018-05-31] MEDS: DULoxetine DR CAP* 30 MG CAP.DR PO SCH (09:58)
[2018-05-31] MEDS: Nystatin SUSPENSION* 100000 UNITS/ML 5 ML UDC PO SCH ×4 (09:58→21:10)
[2018-05-31] MEDS: Memantine TAB* 10 MG PO SCH (09:58)
[2018-05-31] MEDS: Metoprolol Succinate XL TAB* 100 MG PO SCH (09:58)
[2018-05-31] MEDS: Nystatin TOP POWDER* 15 GM BTL TOPICAL SCH ×2 (09:59→21:09)
[2018-05-31] MEDS: Bacitracin OPHTH.OINT* 3.5 GM BOTH EYES SCH ×3 (09:59→21:09)
[2018-05-31] MEDS: Artificial Tears* 15 ML BTL LEFT EYE SCH ×4 (09:59→21:09)
--- NOTE | 2018-05-31 13:53 | PN ---
Subjective Date of Service: 05/31/18 Interval History: Ms. Guajardo is feeling well today. She offered no complaints when asked initially, but requested a glass of ice water because she felt short of breath. She was unable to further describe her SOB. Has occasional congested cough. Denies CP, N /V. Family History: Unchanged from Admission Social History: Unchanged from Admission Past Medical History: Unchanged from Admission Objective Active Medications: Acetaminophen (Tylenol Tab*) 650 mg PO Q4H PRN FEVER/PAIN Albuterol (Ventolin 2.5 Mg/3 Ml Neb.Janel*) 2.5 mg INH [id number] AWAKE PRN sob/wheezing Albuterol/Ipratropium (Duoneb (Albuterol 2.5 Mg/Ipratropium 0.5 Mg)) 1 neb INH Q4H PRN SOB/WHEEZING Amlodipine Besylate (Norvasc Tab*) 10 mg PO DAILY [facility] Bacitracin (Bacitracin Ophth.Oint*) 1 applic BOTH EYES TID [facility] Dextrose (D50w Syringe 50 Ml*) 12.5 gm IV PUSH .FOR FS < 60 - SS PRN FS < 60 Donepezil HCl (Aricept Tab*) 10 mg PO BEDTIME [facility] Duloxetine HCl (Cymbalta Cap*) 30 mg PO DAILY [facility] Guaifenesin (Mucinex*) 600 mg PO BID [facility] Guaifenesin (Robitussin*) 10 ml PO Q4H PRN COUGH Heparin Sodium (Porcine) (Heparin Vial(*)) 5,000 units SUBCUT Q8HR [facility] Heparin Sodium (Porcine) (Heparin Flush Picc/Ml/Cvc(*)) 1 - 3 ml FLUSH 0600, 1800 [facility]; Protocol Piperacillin Sod/Tazobactam (Sod 3.375 gm/ Sodium Chloride) 100 mls @ 25 mls/ hr IVPB Q8H [facility] Insulin Human Lispro (Humalog*) 0 units SUBCUT AC [facility]; Protocol Memantine (Namenda Tab*) 10 mg PO DAILY [facility] Metoprolol Succinate (Toprol Xl Tab*) 100 mg PO DAILY [facility] Nystatin (Nystatin Top Powder*) 1 applic TOPICAL BID [facility] Nystatin (Nystatin Suspension*) 200,000 units PO QID [facility] Polyvinyl Alcohol (Polyvinyl Alcohol 1.4% Opth*) 1 drop LEFT EYE QID [facility] Prednisone (Deltasone Tab*) 40 mg PO DAILY [facility] Simethicone (Mylicon Tab*) 80 mg PO Q12H PRN INDIGESTION Valsartan (Diovan Tab*) 320 mg PO DAILY [facility] Vital Signs - 8 hr 05/31/18 05/31/18 05/31/18 07:16 08:00 11:28 Temperature 97.5 F 98.1 F Pulse Rate 67 62 Respiratory 17 20 Rate Blood Pressure 158/65 137/59 (mmHg) O2 Sat by Pulse 88 98 Oximetry Oxygen Devices in Use Now: Nasal Cannula - 2L Appearance: Elderly woman sitting in bed in NAD Eyes: No Scleral Icterus Ears/Nose/Mouth/Throat: Mucous Membranes Moist Neck: NL Appearance and Movements; NL JVP, Trachea Midline Respiratory: Symmetrical Chest Expansion and Respiratory Effort, - - Rhonchi throughout Cardiovascular: NL Sounds; No Murmurs; No JVD, RRR Abdominal: NL Sounds; No Tenderness; No Distention Extremities: No Edema Neurological: - - Oriented to self Lines/Tubes/Other Access: Clean, Dry and Intact Peripheral IV Nutrition: Taking PO's Result Diagrams: 05/31/18 06:13 05/31/18 06:13 Assess/Plan/Problems-Billing Assessment: Ms. Guajardo is an 88 yo F with PMH of dementia, HTN, Type 2 DM, possible HFpEF, COPD; who presented in hypoxic resp failure with fever thought to be 2/2 to PNA. - Patient Problems (1) COPD exacerbation Code(s): J44.1 - CHRONIC OBSTRUCTIVE PULMONARY DISEASE W (ACUTE) EXACERBATION Comment: - With underlying pneumonia - Requiring 2L NC - Continue nebs, prednisone, Mucinex (2) Pneumonia Code(s): J18.9 - PNEUMONIA, UNSPECIFIED ORGANISM Comment: - Blood culture positive for Staph hominis, repeat culture negative - Received azithromycin and ceftriaxone for 3 days - Continue Zosyn (day 10/15) (3) Acute hypoxemic respiratory failure Code(s): J96.01 - ACUTE RESPIRATORY FAILURE WITH HYPOXIA Comment: - Acute hypoxemic and hypercapnic resp failure per admission, 2/2 to PNA and COPD exacerbation - Maintain O2 saturation overnight and during day on 2L nasal cannula - Currently improving on 05/27 CXR though persistent effusion on L (4) Acute CHF Code(s): I50.9 - HEART FAILURE, UNSPECIFIED Comment: - Resolved - Echo 05/23 with EF 70%, LVH, possible HFpEF - She diuresed x3 days 05/23 - 05/26 - Last CXR with edema and R and L pleural effusion, will attempt to keep slightly dry, repeat CXR 05/27 shows improving aeration of lung fiels but persitent effusion (5) HTN (hypertension) Code(s): I10 - ESSENTIAL (PRIMARY) HYPERTENSION Comment: - Slightly hypertensive, SBP 140-150s - Continue metoprolol, valsartan, amlodipine (6) Type II diabetes mellitus Comment: - Glucose moderately elevated - Hold metformin - Continue Lispro SS (7) Dementia Code(s): F03.90 - UNSPECIFIED DEMENTIA WITHOUT BEHAVIORAL DISTURBANCE Comment : - Continue Aricept, Namenda (8) DVT prophylaxis Comment: - Heparin SQ (9) DNR (do not resuscitate) Comment: Status and Disposition: Inpatient. D/c back to [facility] [place] when medically stable. Attending: Jerman Valencia
[2018-05-31] MEDS: Donepezil TAB* 5 MG PO SCH (21:10)
[2018-05-31] MEDS: guaiFENesin LIQ* 100 MG/5 ML UDC PO PRN (21:10)
[2018-06-01] MEDS: ZOSYN 3.375 GM Q8H per EXTENDED INFUSION IVPB SCH ×6 (05:55→22:51)
[2018-06-01] MEDS: Heparin VIAL(*) 5000 UNITS/ML VIAL (FIVE THOUSAND) SUBCUT SCH ×2 (05:55→16:30)
[2018-06-01] MEDS: Insulin LISPRO* 1 UNITS UNIT SUBCUT SCH ×3 (07:55→16:30)
[2018-06-01] MEDS: amLODIPine TAB* 5 MG PO SCH (10:28)
[2018-06-01] MEDS: DULoxetine DR CAP* 30 MG CAP.DR PO SCH (10:28)
[2018-06-01] MEDS: guaiFENesin LIQ* 100 MG/5 ML UDC PO PRN ×2 (10:28→21:04)
[2018-06-01] MEDS: Valsartan TAB* 160 MG PO SCH (10:28)
[2018-06-01] MEDS: Metoprolol Succinate XL TAB* 100 MG PO SCH (10:29)
[2018-06-01] MEDS: predniSONE TAB* 20 MG PO SCH (10:29)
[2018-06-01] MEDS: Nystatin SUSPENSION* 100000 UNITS/ML 5 ML UDC PO SCH ×4 (10:29→21:06)
[2018-06-01] MEDS: Memantine TAB* 10 MG PO SCH (10:29)
[2018-06-01] MEDS: guaiFENesin ER TAB 600 MG PO SCH ×2 (10:29→21:08)
[2018-06-01] MEDS: Bacitracin OPHTH.OINT* 3.5 GM BOTH EYES SCH ×3 (10:38→21:07)
[2018-06-01] MEDS: Nystatin TOP POWDER* 15 GM BTL TOPICAL SCH ×2 (10:38→21:08)
[2018-06-01] MEDS: Artificial Tears* 15 ML BTL LEFT EYE SCH ×4 (10:38→21:07)
--- NOTE | 2018-06-01 17:37 | PN ---
Subjective Date of Service: 06/01/18 Interval History: Pt seen and examined. Meds and labs reviewed. CC: N/A ROS: Unable to obtain reliable 14 point ROS due to pts dementia. PHYSICAL EXAM: GEN APPEARANCE: Awake, not in acute distress, currently on 3L O2, not oriented x 3 HEENT: NC/AT, PERRLA, moist oral mucosa, (-) throat erythema NECK: Soft, supple, (-) cervical LAD, (-)JVD HEART: S1S2 WNL, RRR, No MRG CHEST: CTA, BL, GAE, No W/R/R ABD: Soft, ND/NT, NABS 4x Q EXT: No C/C/E SKIN: Warm to touch PSYCH: No active psychosis, hallucinations, depression, SI/HI Family History: Unchanged from Admission Social History: Unchanged from Admission Past Medical History: Unchanged from Admission Objective Active Medications: Acetaminophen (Tylenol Tab*) 650 mg PO Q4H PRN PRN Reason: FEVER/PAIN Albuterol (Ventolin 2.5 Mg/3 Ml Neb.Janel*) 2.5 mg INH [id number] AWAKE PRN PRN Reason: sob/wheezing Albuterol/Ipratropium (Duoneb (Albuterol 2.5 Mg/Ipratropium 0.5 Mg)) 1 neb INH Q4H PRN PRN Reason: SOB/WHEEZING Amlodipine Besylate (Norvasc Tab*) 10 mg PO DAILY [facility] Last Admin: 06/01/18 10:28 Dose: 10 mg Bacitracin (Bacitracin Ophth.Oint*) 1 applic BOTH EYES TID [facility] Last Admin: 06/01/18 12:48 Dose: 1 applic Dextrose (D50w Syringe 50 Ml*) 12.5 gm IV PUSH .FOR FS < 60 - SS PRN PRN Reason: FS < 60 Donepezil HCl (Aricept Tab*) 10 mg PO BEDTIME [facility] Last Admin: 05/31/18 21:10 Dose: 10 mg Duloxetine HCl (Cymbalta Cap*) 30 mg PO DAILY [facility] Last Admin: 06/01/18 10:28 Dose: 30 mg Guaifenesin (Mucinex*) 600 mg PO BID [facility] Last Admin: 06/01/18 10:29 Dose: Not Given Guaifenesin (Robitussin*) 10 ml PO Q4H PRN PRN Reason: COUGH Last Admin: 06/01/18 10:28 Dose: 10 ml Heparin Sodium (Porcine) (Heparin Flush Picc/Ml/Cvc(*)) 1 - 3 ml FLUSH 0600, 1800 [facility]; Protocol Last Admin: 06/01/18 05:54 Dose: Not Given Heparin Sodium (Porcine) (Heparin Vial(*)) 5,000 units SUBCUT Q12H [facility] Last Admin: 06/01/18 16:30 Dose: 5,000 units Piperacillin Sod/Tazobactam (Sod 3.375 gm/ Sodium Chloride) 100 mls @ 25 mls/ hr IVPB Q8H [facility] Last Admin: 06/01/18 12:45 Dose: 25 mls/hr Doxycycline Hyclate 100 mg/ (Sodium Chloride) 250 mls @ 250 mls/hr IVPB Q12H [facility] Stop: 06/04/18 17:59 Insulin Human Lispro (Humalog*) 0 units SUBCUT AC [facility]; Protocol Last Admin: 06/01/18 16:30 Dose: 6 units Memantine (Namenda Tab*) 10 mg PO DAILY [facility] Last Admin: 06/01/18 10:29 Dose: 10 mg Metoprolol Succinate (Toprol Xl Tab*) 100 mg PO DAILY [facility] Last Admin: 06/01/18 10:29 Dose: 100 mg Nystatin (Nystatin Top Powder*) 1 applic TOPICAL BID [facility] Last Admin: 06/01/18 10:38 Dose: 1 applic Nystatin (Nystatin Suspension*) 200,000 units PO QID [facility] Last Admin: 06/01/18 16:31 Dose: 200,000 units Polyvinyl Alcohol (Polyvinyl Alcohol 1.4% Opth*) 1 drop LEFT EYE QID [facility] Last Admin: 06/01/18 16:33 Dose: 1 drop Prednisone (Deltasone Tab*) 40 mg PO DAILY [facility] Last Admin: 06/01/18 10:29 Dose: 40 mg Simethicone (Mylicon Tab*) 80 mg PO Q12H PRN PRN Reason: INDIGESTION Valsartan (Diovan Tab*) 320 mg PO DAILY [facility] Last Admin: 06/01/18 10:28 Dose: 320 mg Vital Signs - 8 hr 06/01/18 06/01/18 11:54 15:20 Temperature 98.2 F 97.1 F Pulse Rate 62 63 Respiratory 22 24 Rate Blood Pressure 124/42 137/56 (mmHg) O2 Sat by Pulse 97 96 Oximetry Oxygen Devices in Use Now: Nasal Cannula Result Diagrams: 05/31/18 06:13 05/31/18 06:13 Additional Lab and Data: Laboratory Results - last 24 hr 05/29/18 05/30/18 05/30/18 17:02 05:45 05:45 WBC 11.3 H RBC 4.74 Hgb 14.0 Hct 43 MCV 91 MCH 30 MCHC 33 RDW 13 Plt Count 241 MPV 8.0 Neut % (Auto) 85.9 Lymph % (Auto) 8.9 [place] % (Auto) 4.8 Eos % (Auto) 0.1 Baso % (Auto) 0.3 Absolute Neuts (auto) 9.7 H Absolute Lymphs (auto) 1.0 Absolute Monos (auto) 0.6 Absolute Eos (auto) 0 Absolute Basos (auto) 0 Absolute Nucleated RBC 0 Nucleated RBC % 0 Sodium 147 H Potassium 3.3 L Chloride 108 Carbon Dioxide 34 H Anion Gap 5 BUN 32 H Creatinine 0.96 H Est GFR ( Amer) 66.2 Est GFR (Non-Af Amer) 54.7 BUN/Creatinine Ratio 33.3 H Glucose 136 H POC Glucose (mg/dL) 256 H Calcium 9.7 Magnesium 2.3 05/30/18 05/30/18 08:19 12:06 WBC RBC Hgb Hct MCV MCH MCHC RDW Plt Count MPV Neut % (Auto) Lymph % (Auto) [place] % (Auto) Eos % (Auto) Baso % (Auto) Absolute Neuts (auto) Absolute Lymphs (auto) Absolute Monos (auto) Absolute Eos (auto) Absolute Basos (auto) Absolute Nucleated RBC Nucleated RBC % Sodium Potassium Chloride Carbon Dioxide Anion Gap BUN Creatinine Est GFR ( Amer) Est GFR (Non-Af Amer) BUN/Creatinine Ratio Glucose POC Glucose (mg/dL) 112 H 209 H Calcium Magnesium Microbiology and Other Data: Microbiology 05/25/18 05:00 Blood Line Aerobic Blood Culture - Final No Growth Day 5 05/25/18 05:00 Blood Line Anaerobic Blood Culture - Final No Growth Day 5 05/21/18 13:21 Blood Venous Aerobic Blood Culture - Final No Growth Day 5 05/21/18 13:21 Blood Venous Anaerobic Blood Culture - Final No Growth Day 5 05/21/18 12:47 Blood Venous Aerobic Blood Culture - Final Staphylococcus Hominis 05/21/18 12:47 Blood Venous Anaerobic Blood Culture - Final Staphylococcus Hominis 05/21/18 12:47 Blood Venous Blood MRSA/MSSA (PCR) - Final Mrsa Negative S.aureus Negative 05/22/18 02:00 Urine Legionella Urinary Antigen - Final Negative Legionella Antigen 05/22/18 02:00 Urine Streptococcus pneumoniae Ag Screen - Final Negative S. pneumo Antigen 05/21/18 20:12 Nasal Nasal Screen MRSA (PCR) - Final Mrsa Not Detected 05/21/18 13:50 Nasopharyngeal Influenza Types A,B Antigen - Final Specimen received for Influenza A/B Molecular testing Assess/Plan/Problems-Billing Assessment: Ms. Guajardo is an 88 yo F with PMH of dementia, HTN, Type 2 DM, possible HFpEF, COPD; who presented in hypoxic resp failure with fever thought to be 2/2 to PNA. - Patient Problems (1) COPD exacerbation Current Visit: Yes Status: Acute Code(s): J44.1 - CHRONIC OBSTRUCTIVE PULMONARY DISEASE W (ACUTE) EXACERBATION SNOMED Code(s): 773774605 Comment: - With underlying pneumonia - Requiring 3L NC today from yesterdays 2L; pt mentions shes not on O2 when not hospitalized, however, she also has poor memory due to dementia - Continue nebs, prednisone, Mucinex (2) Pneumonia Current Visit: Yes Status: Acute Code(s): J18.9 - PNEUMONIA, UNSPECIFIED ORGANISM SNOMED Code(s): 187911994 Comment: - Blood culture positive for Staph hominis, repeat culture negative; reviewed rest of culture and Ag data and S. hominis only positive in 1 set of blood Cx; likely a contamination - Received azithromycin and ceftriaxone for 3 days, then was placed on Zosyn ( day 10/15) -Will D/C Zosyn and start Doxycycline for 3 more days to complete 10 day treatment therapy (3) Acute hypoxemic respiratory failure Current Visit: Yes Status: Acute Code(s): J96.01 - ACUTE RESPIRATORY FAILURE WITH HYPOXIA SNOMED Code(s): 432297535 Comment: - Acute hypoxemic and hypercapnic resp failure per admission, 2/2 to PNA, CHF, and COPD exacerbation - Maintain O2 saturation overnight and during day on 3L nasal cannula - Currently improving on 2/19 CXR though persistent effusion on L (4) Acute CHF Current Visit: Yes Status: Acute Code(s): I50.9 - HEART FAILURE, UNSPECIFIED SNOMED Code(s): 11006017 Comment: - Resolved - Echo 05/23 with EF 70%, LVH, possible HFpEF - She diuresed x3 days 05/23 - 05/26 - Last CXR with edema and R and L pleural effusion, will attempt to keep slightly dry, repeat CXR 05/27 shows improving aeration of lung fiels but persitent effusion (5) HTN (hypertension) Current Visit: Yes Status: Acute Code(s): I10 - ESSENTIAL (PRIMARY) HYPERTENSION SNOMED Code(s): 39016744 Comment: - Slightly hypertensive, SBP 140-150s - Continue metoprolol, valsartan, amlodipine (6) Type II diabetes mellitus Current Visit: Yes Status: Acute Comment: - Glucose moderately elevated - Hold metformin - Continue Lispro SS (7) Dementia Current Visit: Yes Status: Acute Code(s): F03.90 - UNSPECIFIED DEMENTIA WITHOUT BEHAVIORAL DISTURBANCE SNOMED Code(s): 91912339 Comment: - Continue Aricept, Namenda (8) DVT prophylaxis Current Visit: Yes Status: Acute Code(s): QYS8297 - SNOMED Code(s): 482338777 Comment: -Given advanced age, will change Heparin to q12H Status and Disposition: -Possible D/C back to [facility] in AM
[2018-06-01] MEDS: DOXYcycline IV* 100 MG in NS 0.9% 250 ML* 250 ML IVPB SCH (17:59)
[2018-06-01] MEDS: Donepezil TAB* 5 MG PO SCH (21:03)
[2018-06-02] MEDS: DOXYcycline IV* 100 MG in NS 0.9% 250 ML* 250 ML IVPB SCH ×2 (06:08→17:54)
[2018-06-02] MEDS: Heparin VIAL(*) 5000 UNITS/ML VIAL (FIVE THOUSAND) SUBCUT SCH ×2 (06:11→17:55)
[2018-06-02 06:22] LABS: Hematocrit 41 % (35-47); Hemoglobin 13.2 g/dl (12.0-16.0); Mean Corpuscular HGB Conc 32 g/dl (31-36); Mean Corpuscular Hemoglobin 29 pg (27-31); Mean Corpuscular Volume 90 fL (80-97); Mean Platelet Volume 8.4 fL (7.4-10.4); Platelet Count 195 10^3/ul (150-450); Red Blood Count 4.55 10^6/ul (4.00-5.40); Red Cell Distribution Width 13 % (10.5-15); White Blood Count 13.7 10^3/ul (3.5-10.8)
[2018-06-02 06:37] LABS: CRP High Sensitivity 7.7 mg/L (<2.00); Magnesium 2.1 mg/dL (1.9-2.7); Phosphorus 3.2 mg/dL (2.5-5.0)
[2018-06-02] MEDS: Insulin LISPRO* 1 UNITS UNIT SUBCUT SCH ×3 (08:14→17:55)
[2018-06-02] MEDS: ZOSYN 3.375 GM Q8H per EXTENDED INFUSION IVPB SCH ×4 (08:17→13:31)
[2018-06-02] MEDS: Valsartan TAB* 160 MG PO SCH (08:35)
[2018-06-02] MEDS: Nystatin SUSPENSION* 100000 UNITS/ML 5 ML UDC PO SCH ×4 (08:36→20:50)
[2018-06-02] MEDS: amLODIPine TAB* 5 MG PO SCH (08:36)
[2018-06-02] MEDS: Artificial Tears* 15 ML BTL LEFT EYE SCH ×4 (08:36→20:33)
[2018-06-02] MEDS: Memantine TAB* 10 MG PO SCH (08:36)
[2018-06-02] MEDS: Metoprolol Succinate XL TAB* 100 MG PO SCH (08:36)
[2018-06-02] MEDS: Nystatin TOP POWDER* 15 GM BTL TOPICAL SCH ×2 (08:36→20:34)
[2018-06-02] MEDS: predniSONE TAB* 20 MG PO SCH (08:36)
[2018-06-02] MEDS: DULoxetine DR CAP* 30 MG CAP.DR PO SCH (08:36)
[2018-06-02] MEDS: guaiFENesin LIQ* 100 MG/5 ML UDC PO PRN ×2 (08:36→20:50)
[2018-06-02] MEDS: Bacitracin OPHTH.OINT* 3.5 GM BOTH EYES SCH ×3 (08:37→20:33)
[2018-06-02] MEDS: guaiFENesin ER TAB 600 MG PO SCH ×2 (08:37→20:35)
[2018-06-02] MEDS ORDERED: Furosemide IV* 10 MG/ML 2 ML VIAL (20 MG) IV ONE (17:18)
--- NOTE | 2018-06-02 17:21 | PN ---
Subjective Date of Service: 06/02/18 Interval History: Pt seen and examined. Meds and labs reviewed. CC: Examined what appears to be diaper rash on her sacral area. Please see discussion below ROS: Denied DOE/dizziness, F/C, N/V, CP, SOB, increased cough, sputum production , abd pain, diarrhea, constipation, dysuria, myalgias, arthralgias, throat pain. The rest of the 14 point ROS are unremarkable. PHYSICAL EXAM: GEN APPEARANCE: Awake, not in acute distress, currently on 3L O2, not oriented x 3 HEENT: NC/AT, PERRLA, moist oral mucosa, (-) throat erythema NECK: Soft, supple, (-) cervical LAD, (-)JVD HEART: S1S2 WNL, RRR, No MRG CHEST: GAE, (+)Bibasal crackles ABD: Soft, ND/NT, NABS 4x Q EXT: No C/C/E SKIN: Warm to touch; (+)Diaper rash in sacrum PSYCH: No active psychosis, hallucinations, depression, SI/HI Family History: Unchanged from Admission Social History: Unchanged from Admission Past Medical History: Unchanged from Admission Objective Active Medications: Acetaminophen (Tylenol Tab*) 650 mg PO Q4H PRN PRN Reason: FEVER/PAIN Albuterol (Ventolin 2.5 Mg/3 Ml Neb.Janel*) 2.5 mg INH [id number] AWAKE PRN PRN Reason: sob/wheezing Albuterol/Ipratropium (Duoneb (Albuterol 2.5 Mg/Ipratropium 0.5 Mg)) 1 neb INH Q4H PRN PRN Reason: SOB/WHEEZING Amlodipine Besylate (Norvasc Tab*) 10 mg PO DAILY [facility] Last Admin: 06/02/18 08:36 Dose: 10 mg Bacitracin (Bacitracin Ophth.Oint*) 1 applic BOTH EYES TID [facility] Last Admin: 06/02/18 13:32 Dose: 1 applic Dextrose (D50w Syringe 50 Ml*) 12.5 gm IV PUSH .FOR FS < 60 - SS PRN PRN Reason: FS < 60 Donepezil HCl (Aricept Tab*) 10 mg PO BEDTIME [facility] Last Admin: 06/01/18 21:03 Dose: 10 mg Duloxetine HCl (Cymbalta Cap*) 30 mg PO DAILY [facility] Last Admin: 06/02/18 08:36 Dose: 30 mg Furosemide (Lasix Iv*) 20 mg IV ONCE ONE Stop: 06/02/18 17:19 Guaifenesin (Mucinex*) 600 mg PO BID [facility] Last Admin: 06/02/18 08:37 Dose: Not Given Guaifenesin (Robitussin*) 10 ml PO Q4H PRN PRN Reason: COUGH Last Admin: 06/02/18 08:36 Dose: 10 ml Heparin Sodium (Porcine) (Heparin Flush Picc/Ml/Cvc(*)) 1 - 3 ml FLUSH 0600, 1800 [facility]; Protocol Last Admin: 06/02/18 06:08 Dose: Not Given Heparin Sodium (Porcine) (Heparin Vial(*)) 5,000 units SUBCUT Q12H [facility] Last Admin: 06/02/18 06:11 Dose: 5,000 units Doxycycline Hyclate 100 mg/ (Sodium Chloride) 250 mls @ 250 mls/hr IVPB Q12H [facility] Stop: 06/04/18 17:59 Last Admin: 06/02/18 06:08 Dose: 250 mls/hr Insulin Human Lispro (Humalog*) 0 units SUBCUT AC [facility]; Protocol Last Admin: 06/02/18 13:31 Dose: 6 units Memantine (Namenda Tab*) 10 mg PO DAILY [facility] Last Admin: 06/02/18 08:36 Dose: 10 mg Metoprolol Succinate (Toprol Xl Tab*) 100 mg PO DAILY [facility] Last Admin: 06/02/18 08:36 Dose: 100 mg Nystatin (Nystatin Suspension*) 200,000 units PO QID [facility] Last Admin: 06/02/18 13:31 Dose: 200,000 units Nystatin (Nystatin Top Powder*) 1 applic TOPICAL BID [facility] Polyvinyl Alcohol (Polyvinyl Alcohol 1.4% Opth*) 1 drop LEFT EYE QID [facility] Last Admin: 06/02/18 13:32 Dose: 1 drop Prednisone (Deltasone Tab*) 40 mg PO DAILY [facility] Last Admin: 06/02/18 08:36 Dose: 40 mg Simethicone (Mylicon Tab*) 80 mg PO Q12H PRN PRN Reason: INDIGESTION Valsartan (Diovan Tab*) 320 mg PO DAILY [facility] Last Admin: 06/02/18 08:35 Dose: 320 mg Oxygen Devices in Use Now: Nasal Cannula Result Diagrams: 06/02/18 06:00 05/31/18 06:13 Additional Lab and Data: Laboratory Results - last 24 hr 05/29/18 05/30/18 05/30/18 17:02 05:45 05:45 WBC 11.3 H RBC 4.74 Hgb 14.0 Hct 43 MCV 91 MCH 30 MCHC 33 RDW 13 Plt Count 241 MPV 8.0 Neut % (Auto) 85.9 Lymph % (Auto) 8.9 Dawson % (Auto) 4.8 Eos % (Auto) 0.1 Baso % (Auto) 0.3 Absolute Neuts (auto) 9.7 H Absolute Lymphs (auto) 1.0 Absolute Monos (auto) 0.6 Absolute Eos (auto) 0 Absolute Basos (auto) 0 Absolute Nucleated RBC 0 Nucleated RBC % 0 Sodium 147 H Potassium 3.3 L Chloride 108 Carbon Dioxide 34 H Anion Gap 5 BUN 32 H Creatinine 0.96 H Est GFR ( Amer) 66.2 Est GFR (Non-Af Amer) 54.7 BUN/Creatinine Ratio 33.3 H Glucose 136 H POC Glucose (mg/dL) 256 H Calcium 9.7 Magnesium 2.3 05/30/18 05/30/18 08:19 12:06 WBC RBC Hgb Hct MCV MCH MCHC RDW Plt Count MPV Neut % (Auto) Lymph % (Auto) Dawson % (Auto) Eos % (Auto) Baso % (Auto) Absolute Neuts (auto) Absolute Lymphs (auto) Absolute Monos (auto) Absolute Eos (auto) Absolute Basos (auto) Absolute Nucleated RBC Nucleated RBC % Sodium Potassium Chloride Carbon Dioxide Anion Gap BUN Creatinine Est GFR ( Amer) Est GFR (Non-Af Amer) BUN/Creatinine Ratio Glucose POC Glucose (mg/dL) 112 H 209 H Calcium Magnesium Microbiology and Other Data: Microbiology 05/25/18 05:00 Blood Line Aerobic Blood Culture - Final No Growth Day 5 05/25/18 05:00 Blood Line Anaerobic Blood Culture - Final No Growth Day 5 05/21/18 13:21 Blood Venous Aerobic Blood Culture - Final No Growth Day 5 05/21/18 13:21 Blood Venous Anaerobic Blood Culture - Final No Growth Day 5 05/21/18 12:47 Blood Venous Aerobic Blood Culture - Final Staphylococcus Hominis 02/13/19 12:47 Blood Venous Anaerobic Blood Culture - Final Staphylococcus Hominis 05/21/18 12:47 Blood Venous Blood MRSA/MSSA (PCR) - Final Mrsa Negative S.aureus Negative 05/22/18 02:00 Urine Legionella Urinary Antigen - Final Negative Legionella Antigen 05/22/18 02:00 Urine Streptococcus pneumoniae Ag Screen - Final Negative S. pneumo Antigen 05/21/18 20:12 Nasal Nasal Screen MRSA (PCR) - Final Mrsa Not Detected 05/21/18 13:50 Nasopharyngeal Influenza Types A,B Antigen - Final Specimen received for Influenza A/B Molecular testing Assess/Plan/Problems-Billing Assessment: Ms. Guajardo is an 88 yo F with PMH of dementia, HTN, Type 2 DM, possible HFpEF, COPD; who presented in hypoxic resp failure with fever thought to be 2/2 to PNA. - Patient Problems (1) Irritant contact dermatitis Current Visit: Yes Status: Acute Code(s): L24.9 - IRRITANT CONTACT DERMATITIS, UNSPECIFIED CAUSE SNOMED Code(s): 141364003 Comment: -Continue Nystatin PO; current topical nystatin can also be applied to sacral area to keep it dry -D/W RN (2) COPD exacerbation Current Visit: Yes Status: Acute Code(s): J44.1 - CHRONIC OBSTRUCTIVE PULMONARY DISEASE W (ACUTE) EXACERBATION SNOMED Code(s): 689076469 Comment: - With underlying pneumonia - Requiring 3L NC today from yesterdays 2L; pt mentions shes not on O2 when not hospitalized, however, she also has poor memory due to dementia - Continue nebs, prednisone, Mucinex -Repeat CXR today -For ambulatory sats in AM (3) Pneumonia Current Visit: Yes Status: Acute Code(s): J18.9 - PNEUMONIA, UNSPECIFIED ORGANISM SNOMED Code(s): 649546945 Comment: - Blood culture positive for Staph hominis, repeat culture negative; reviewed rest of culture and Ag data and S. hominis only positive in 1 set of blood Cx; likely a contamination - Received azithromycin and ceftriaxone for 3 days, then was placed on Zosyn ( day 8/10) -Will D/C Zosyn and continue Doxycycline for 2 more days to complete 10 day treatment therapy (4) Acute hypoxemic respiratory failure Current Visit: Yes Status: Acute Code(s): J96.01 - ACUTE RESPIRATORY FAILURE WITH HYPOXIA SNOMED Code(s): 650576803 Comment: - Acute hypoxemic and hypercapnic resp failure per admission, 05/10 to PNA, CHF, and COPD exacerbation - Maintain O2 saturation overnight and during day on 3L nasal cannula - Currently improving on 05/27 CXR though persistent effusion on L (5) Acute CHF Current Visit: Yes Status: Acute Code(s): I50.9 - HEART FAILURE, UNSPECIFIED SNOMED Code(s): 45970221 Comment: - Placed pt on low sodium diet -I/Os in the positives and now w/Bibasal crackles; will order CXR -Give Lasix 20 mg IV x 1 and will await result of CXR - Echo 05/23 with EF 70%, LVH, possible HFpEF - She diuresed x3 days 05/23 - 05/26 - Last CXR with edema and R and L pleural effusion, will attempt to keep slightly dry, repeat CXR 05/27 shows improving aeration of lung fiels but persitent effusion (6) HTN (hypertension) Current Visit: Yes Status: Acute Code(s): I10 - ESSENTIAL (PRIMARY) HYPERTENSION SNOMED Code(s): 78982941 Comment: - Slightly hypertensive, SBP 140-150s - Continue metoprolol, valsartan, amlodipine (7) Type II diabetes mellitus Current Visit: Yes Status: Acute Comment: - Glucose moderately elevated - Hold metformin - Continue Lispro SS (8) Dementia Current Visit: Yes Status: Acute Code(s): F03.90 - UNSPECIFIED DEMENTIA WITHOUT BEHAVIORAL DISTURBANCE SNOMED Code(s): 03780809 Comment: - Continue Aricept, Namenda (9) DVT prophylaxis Current Visit: Yes Status: Acute Code(s): TEA9777 - SNOMED Code(s): 559445611 Comment: -Given advanced age, will change Heparin to q12H Status and Disposition: -Awaiting CXR result -For ambulatory sats at in AM -Possible D/C back to [facility] in AM
[2018-06-02] MEDS: Donepezil TAB* 5 MG PO SCH (20:50)
[2018-06-03] MEDS: DOXYcycline IV* 100 MG in NS 0.9% 250 ML* 250 ML IVPB SCH ×2 (05:51→18:07)
[2018-06-03] MEDS: Heparin VIAL(*) 5000 UNITS/ML VIAL (FIVE THOUSAND) SUBCUT SCH ×2 (05:52→18:11)
[2018-06-03 07:09] LABS: Albumin 2.9 g/dL (3.2-5.2); Albumin/Globulin Ratio 1.3 (1-3); BUN/Creatinine Ratio 34.4 (8-20); Calcium 9.4 mg/dL (8.6-10.3); EGFR African American 71.3 (>60); Globulin 2.3 g/dL (2-4); Potassium 4.2 mmol/L (3.5-5.0); Total Bilirubin 0.3 mg/dL (0.2-1.0); Total Protein 5.2 g/dL (6.4-8.9)
[2018-06-03] MEDS: Insulin LISPRO* 1 UNITS UNIT SUBCUT SCH ×3 (07:50→18:10)
[2018-06-03] MEDS: DULoxetine DR CAP* 30 MG CAP.DR PO SCH (10:21)
[2018-06-03] MEDS: predniSONE TAB* 20 MG PO SCH (10:22)
[2018-06-03] MEDS: Nystatin SUSPENSION* 100000 UNITS/ML 5 ML UDC PO SCH ×4 (10:24→20:27)
[2018-06-03] MEDS: Memantine TAB* 10 MG PO SCH (10:24)
[2018-06-03] MEDS: guaiFENesin LIQ* 100 MG/5 ML UDC PO PRN ×2 (10:25→20:27)
[2018-06-03] MEDS: Nystatin TOP POWDER* 15 GM BTL TOPICAL SCH ×2 (10:28→20:22)
[2018-06-03] MEDS: Valsartan TAB* 160 MG PO SCH (10:28)
[2018-06-03] MEDS: amLODIPine TAB* 5 MG PO SCH (10:29)
[2018-06-03] MEDS: Bacitracin OPHTH.OINT* 3.5 GM BOTH EYES SCH ×3 (10:30→20:23)
[2018-06-03] MEDS: Artificial Tears* 15 ML BTL LEFT EYE SCH ×4 (10:30→20:23)
[2018-06-03] MEDS: guaiFENesin ER TAB 600 MG PO SCH ×2 (10:31→20:14)
[2018-06-03] MEDS: Metoprolol Succinate XL TAB* 100 MG PO SCH (10:32)
[2018-06-03 11:36] LABS: Hematocrit 42 % (35-47); Hemoglobin 13.5 g/dl (12.0-16.0); Mean Corpuscular HGB Conc 33 g/dl (31-36); Mean Corpuscular Hemoglobin 30 pg (27-31); Mean Corpuscular Volume 91 fL (80-97); Mean Platelet Volume 8.4 fL (7.4-10.4); Platelet Count 210 10^3/ul (150-450); Red Blood Count 4.57 10^6/ul (4.00-5.40); Red Cell Distribution Width 14 % (10.5-15); White Blood Count 14.2 10^3/ul (3.5-10.8)
[2018-06-03 12:03] LABS: ABS Basophils 0.1 10^3/ul (0-0.2); ABS Eosinophils 0.1 10^3/ul (0-0.6); ABS Lymphocytes 2.2 10^3/ul (1.0-4.8); ABS Monocytes 0.7 10^3/ul (0-0.8); ABS Neutrophils 11.1 10^3/ul (1.5-7.7); ABS Nucleated RBC 0 10^3/ul; Eosinophil % 0.9 %; Lymphocyte % 15.4 %; Nucleated Red Blood Cells % 0
[2018-06-03] MEDS: Metoprolol Tartrate TAB* 50 mg PO SCH ×2 (12:26→20:25)
[2018-06-03] MEDS ORDERED: Furosemide IV* 10 MG/ML VIAL (40 MG) IV ONE (17:03)
--- NOTE | 2018-06-03 17:17 | PN ---
Subjective Date of Service: 06/03/18 Interval History: Pt seen and examined. Meds and labs reviewed. Saturating well at rest but becomes tachycardic in 130s when walking a few steps along with drop of sats to 89%; unable to walk further CC: N/A ROS: Denied DOE/dizziness, F/C, N/V, CP, SOB, increased cough, sputum production , abd pain, diarrhea, constipation, dysuria, myalgias, arthralgias, throat pain , and new skin lesions. The rest of the 14 point ROS are unremarkable. PHYSICAL EXAM: GEN APPEARANCE: Awake, not in acute distress, pt appears weak HEENT: NC/AT, PERRLA, moist oral mucosa, (-) throat erythema NECK: Soft, supple, (-) cervical LAD, (-)JVD HEART: S1S2 WNL, RRR, No MRG CHEST: GAE, (+)Bibasal crackles ABD: Soft, ND/NT, NABS 4x Q EXT: No C/C/E SKIN: Warm to touch; (+)Diaper rash in sacrum PSYCH: No active psychosis, hallucinations, depression, SI/HI Family History: Unchanged from Admission Social History: Unchanged from Admission Past Medical History: Unchanged from Admission Objective Active Medications: Acetaminophen (Tylenol Tab*) 650 mg PO Q4H PRN PRN Reason: FEVER/PAIN Albuterol (Ventolin 2.5 Mg/3 Ml Neb.Janel*) 2.5 mg INH [id number] AWAKE PRN PRN Reason: sob/wheezing Albuterol/Ipratropium (Duoneb (Albuterol 2.5 Mg/Ipratropium 0.5 Mg)) 1 neb INH Q4H PRN PRN Reason: SOB/WHEEZING Amlodipine Besylate (Norvasc Tab*) 10 mg PO DAILY [facility] Last Admin: 06/03/18 10:29 Dose: 10 mg Bacitracin (Bacitracin Ophth.Oint*) 1 applic BOTH EYES TID [facility] Last Admin: 06/03/18 12:27 Dose: 1 applic Dextrose (D50w Syringe 50 Ml*) 12.5 gm IV PUSH .FOR FS < 60 - SS PRN PRN Reason: FS < 60 Donepezil HCl (Aricept Tab*) 10 mg PO BEDTIME [facility] Last Admin: 06/02/18 20:50 Dose: 10 mg Duloxetine HCl (Cymbalta Cap*) 30 mg PO DAILY [facility] Last Admin: 06/03/18 10:21 Dose: 30 mg Furosemide (Lasix Iv*) 40 mg IV ONCE ONE Stop: 06/03/18 17:04 Guaifenesin (Mucinex*) 600 mg PO BID [facility] Last Admin: 06/03/18 10:31 Dose: Not Given Guaifenesin (Robitussin*) 10 ml PO Q4H PRN PRN Reason: COUGH Last Admin: 06/03/18 10:25 Dose: 10 ml Heparin Sodium (Porcine) (Heparin Flush Picc/Ml/Cvc(*)) 1 - 3 ml FLUSH 0600, 1800 [facility]; Protocol Last Admin: 06/03/18 05:34 Dose: Not Given Heparin Sodium (Porcine) (Heparin Vial(*)) 5,000 units SUBCUT Q12H [facility] Last Admin: 06/03/18 05:52 Dose: 5,000 units Doxycycline Hyclate 100 mg/ (Sodium Chloride) 250 mls @ 250 mls/hr IVPB Q12H [facility] Stop: 06/04/18 17:59 Last Admin: 06/03/18 05:51 Dose: 250 mls/hr Insulin Human Lispro (Humalog*) 0 units SUBCUT AC [facility]; Protocol Last Admin: 06/03/18 12:26 Dose: 3 units Memantine (Namenda Tab*) 10 mg PO DAILY [facility] Last Admin: 06/03/18 10:24 Dose: 10 mg Metoprolol Tartrate (Lopressor Tab*) 50 mg PO BID [facility] Last Admin: 06/03/18 12:26 Dose: 50 mg Nystatin (Nystatin Suspension*) 200,000 units PO QID [facility] Last Admin: 06/03/18 12:26 Dose: 200,000 units Nystatin (Nystatin Top Powder*) 1 applic TOPICAL BID [facility] Last Admin: 06/03/18 10:28 Dose: 1 applic Polyvinyl Alcohol (Polyvinyl Alcohol 1.4% Opth*) 1 drop LEFT EYE QID [facility] Last Admin: 06/03/18 12:26 Dose: 1 drop Prednisone (Deltasone Tab*) 30 mg PO DAILY [facility] Simethicone (Mylicon Tab*) 80 mg PO Q12H PRN PRN Reason: INDIGESTION Torsemide (Demadex*) 10 mg PO Q48H [facility] Valsartan (Diovan Tab*) 320 mg PO DAILY [facility] Last Admin: 06/03/18 10:28 Dose: 320 mg Vital Signs - 8 hr 06/03/18 11:45 Temperature 97.6 F Pulse Rate 63 Respiratory 18 Rate Blood Pressure 117/46 (mmHg) O2 Sat by Pulse 98 Oximetry Oxygen Devices in Use Now: Nasal Cannula Result Diagrams: 06/03/18 11:30 06/03/18 06:00 Additional Lab and Data: Laboratory Results - last 24 hr 05/29/18 05/30/18 05/30/18 17:02 05:45 05:45 WBC 11.3 H RBC 4.74 Hgb 14.0 Hct 43 MCV 91 MCH 30 MCHC 33 RDW 13 Plt Count 241 MPV 8.0 Neut % (Auto) 85.9 Lymph % (Auto) 8.9 [place] % (Auto) 4.8 Eos % (Auto) 0.1 Baso % (Auto) 0.3 Absolute Neuts (auto) 9.7 H Absolute Lymphs (auto) 1.0 Absolute Monos (auto) 0.6 Absolute Eos (auto) 0 Absolute Basos (auto) 0 Absolute Nucleated RBC 0 Nucleated RBC % 0 Sodium 147 H Potassium 3.3 L Chloride 108 Carbon Dioxide 34 H Anion Gap 5 BUN 32 H Creatinine 0.96 H Est GFR ( Amer) 66.2 Est GFR (Non-Af Amer) 54.7 BUN/Creatinine Ratio 33.3 H Glucose 136 H POC Glucose (mg/dL) 256 H Calcium 9.7 Magnesium 2.3 05/30/18 05/30/18 08:19 12:06 WBC RBC Hgb Hct MCV MCH MCHC RDW Plt Count MPV Neut % (Auto) Lymph % (Auto) [place] % (Auto) Eos % (Auto) Baso % (Auto) Absolute Neuts (auto) Absolute Lymphs (auto) Absolute Monos (auto) Absolute Eos (auto) Absolute Basos (auto) Absolute Nucleated RBC Nucleated RBC % Sodium Potassium Chloride Carbon Dioxide Anion Gap BUN Creatinine Est GFR ( Amer) Est GFR (Non-Af Amer) BUN/Creatinine Ratio Glucose POC Glucose (mg/dL) 112 H 209 H Calcium Magnesium Microbiology and Other Data: Microbiology 05/25/18 05:00 Blood Line Aerobic Blood Culture - Final No Growth Day 5 05/25/18 05:00 Blood Line Anaerobic Blood Culture - Final No Growth Day 5 05/21/18 13:21 Blood Venous Aerobic Blood Culture - Final No Growth Day 5 05/21/18 13:21 Blood Venous Anaerobic Blood Culture - Final No Growth Day 5 05/21/18 12:47 Blood Venous Aerobic Blood Culture - Final Staphylococcus Hominis 05/21/18 12:47 Blood Venous Anaerobic Blood Culture - Final Staphylococcus Hominis 05/21/18 12:47 Blood Venous Blood MRSA/MSSA (PCR) - Final Mrsa Negative S.aureus Negative 05/22/18 02:00 Urine Legionella Urinary Antigen - Final Negative Legionella Antigen 05/22/18 02:00 Urine Streptococcus pneumoniae Ag Screen - Final Negative S. pneumo Antigen 05/21/18 20:12 Nasal Nasal Screen MRSA (PCR) - Final Mrsa Not Detected 05/21/18 13:50 Nasopharyngeal Influenza Types A,B Antigen - Final Specimen received for Influenza A/B Molecular testing Assess/Plan/Problems-Billing Assessment: Ms. Guajardo is an 88 yo F with PMH of dementia, HTN, Type 2 DM, possible HFpEF, COPD; who presented in hypoxic resp failure with fever thought to be 2/2 to PNA. - Patient Problems (1) Acute CHF Current Visit: Yes Status: Acute Code(s): I50.9 - HEART FAILURE, UNSPECIFIED SNOMED Code(s): 70917889 Comment: -Continue low sodium diet -I/Os in the positives and now w/Bibasal crackles; will order CXR -Give Lasix 40 mg IV x 1 and begin every other day dosing w/low dose Torsemide in AM - Echo 05/23 with EF 70%, LVH, possible HFpEF - She diuresed x3 days 05/23 - 05/26 (2) COPD exacerbation Current Visit: Yes Status: Acute Code(s): J44.1 - CHRONIC OBSTRUCTIVE PULMONARY DISEASE W (ACUTE) EXACERBATION SNOMED Code(s): 779611485 Comment: - With underlying pneumonia - Requiring 3L NC today from yesterdays 2L; pt mentions shes not on O2 when not hospitalized, however, she also has poor memory due to dementia - Continue nebs, prednisone, Mucinex (3) Pneumonia Current Visit: Yes Status: Acute Code(s): J18.9 - PNEUMONIA, UNSPECIFIED ORGANISM SNOMED Code(s): 855366231 Comment: - Blood culture positive for Staph hominis, repeat culture negative; reviewed rest of culture and Ag data and S. hominis only positive in 1 set of blood Cx; likely a contamination - Received azithromycin and ceftriaxone for 3 days, then was placed on Zosyn ( day 8) -Continue Doxycycline; leukocytosis possibly due to steroids? Will begin to taper as we further diurese pt (4) Irritant contact dermatitis Current Visit: Yes Status: Acute Code(s): L24.9 - IRRITANT CONTACT DERMATITIS, UNSPECIFIED CAUSE SNOMED Code(s): 373348536 Comment: -Continue Nystatin PO; current topical nystatin can also be applied to sacral area to keep it dry -D/W RN (5) Acute hypoxemic respiratory failure Current Visit: Yes Status: Acute Code(s): J96.01 - ACUTE RESPIRATORY FAILURE WITH HYPOXIA SNOMED Code(s): 879638989 Comment: - Acute hypoxemic and hypercapnic resp failure per admission, / to PNA, CHF, and COPD exacerbation - Maintain O2 saturation overnight and during day on 3L nasal cannula - Currently improving on 05/27 CXR though persistent effusion on L (6) HTN (hypertension) Current Visit: Yes Status: Acute Code(s): I10 - ESSENTIAL (PRIMARY) HYPERTENSION SNOMED Code(s): 93967373 Comment: - Slightly hypertensive, SBP 140-150s - Continue metoprolol, valsartan, amlodipine (7) Type II diabetes mellitus Current Visit: Yes Status: Acute Comment: - Glucose moderately elevated - Hold metformin - Continue Lispro SS (8) Dementia Current Visit: Yes Status: Acute Code(s): F03.90 - UNSPECIFIED DEMENTIA WITHOUT BEHAVIORAL DISTURBANCE SNOMED Code(s): 71321423 Comment: - Continue Aricept, Namenda (9) DVT prophylaxis Current Visit: Yes Status: Acute Code(s): FGW6053 - SNOMED Code(s): 227966234 Comment: -Given advanced age, will change Heparin to q12H Status and Disposition: -Possible D/C back to [facility] in AM
[2018-06-03] MEDS: Donepezil TAB* 5 MG PO SCH (20:25)
[2018-06-04] MEDS: Heparin VIAL(*) 5000 UNITS/ML VIAL (FIVE THOUSAND) SUBCUT SCH ×2 (06:12→17:16)
[2018-06-04] MEDS: DOXYcycline IV* 100 MG in NS 0.9% 250 ML* 250 ML IVPB SCH (06:13)
[2018-06-04 06:28] LABS: Hematocrit 41 % (35-47); Hemoglobin 13.3 g/dl (12.0-16.0); Mean Corpuscular HGB Conc 32 g/dl (31-36); Mean Corpuscular Hemoglobin 29 pg (27-31); Mean Corpuscular Volume 90 fL (80-97); Mean Platelet Volume 8.2 fL (7.4-10.4); Platelet Count 241 10^3/ul (150-450); Red Blood Count 4.57 10^6/ul (4.00-5.40); Red Cell Distribution Width 14 % (10.5-15); White Blood Count 13.8 10^3/ul (3.5-10.8)
[2018-06-04 06:46] LABS: Albumin 3.1 g/dL (3.2-5.2); Albumin/Globulin Ratio 1.3 (1-3); Calcium 9.8 mg/dL (8.6-10.3); EGFR African American 67.8 (>60); EGFR Non-African American 56.1 (>60); Globulin 2.3 g/dL (2-4); Magnesium 2.1 mg/dL (1.9-2.7); Phosphorus 3.5 mg/dL (2.5-5.0); Potassium 4.4 mmol/L (3.5-5.0); Total Bilirubin 0.3 mg/dL (0.2-1.0); Total Protein 5.4 g/dL (6.4-8.9)
[2018-06-04] MEDS: Insulin LISPRO* 1 UNITS UNIT SUBCUT SCH ×3 (07:46→18:28)
[2018-06-04] MEDS ORDERED: Torsemide TAB* 20 MG PO SCH (08:00)
[2018-06-04] MEDS: Nystatin SUSPENSION* 100000 UNITS/ML 5 ML UDC PO SCH ×4 (10:12→21:36)
[2018-06-04] MEDS: guaiFENesin LIQ* 100 MG/5 ML UDC PO PRN ×2 (10:16→21:38)
[2018-06-04] MEDS: Bacitracin OPHTH.OINT* 3.5 GM BOTH EYES SCH ×3 (10:17→21:35)
[2018-06-04] MEDS: Artificial Tears* 15 ML BTL LEFT EYE SCH ×4 (10:17→21:37)
[2018-06-04] MEDS: Valsartan TAB* 160 MG PO SCH (10:18)
[2018-06-04] MEDS: amLODIPine TAB* 5 MG PO SCH (10:18)
[2018-06-04] MEDS: Memantine TAB* 10 MG PO SCH (10:18)
[2018-06-04] MEDS: Metoprolol Tartrate TAB* 50 mg PO SCH ×2 (10:18→21:36)
[2018-06-04] MEDS: DULoxetine DR CAP* 30 MG CAP.DR PO SCH (10:18)
[2018-06-04] MEDS: predniSONE TAB* 10 MG PO SCH (10:18)
[2018-06-04] MEDS: guaiFENesin ER TAB 600 MG PO SCH ×2 (10:19→21:37)
[2018-06-04] MEDS ORDERED: Iodixanol* (CONTRAST) 320 MG/ML 100 ML SDV IV ONE (14:05)
[2018-06-04] MEDS: Nystatin TOP POWDER* 15 GM BTL TOPICAL SCH ×2 (17:13→21:37)
--- NOTE | 2018-06-04 19:33 | PN ---
Subjective Date of Service: 06/04/18 Interval History: patient seen, remain dyspneic today. On nasal canula. Increase RR during examinations. I did send for CTA negative for PE. no acute events overnight Past Medical History: Unchanged from Admission Objective Active Medications: Acetaminophen (Tylenol Tab*) 650 mg PO Q4H PRN PRN Reason: FEVER/PAIN Albuterol (Ventolin 2.5 Mg/3 Ml Neb.Janel*) 2.5 mg INH [id number] AWAKE PRN PRN Reason: sob/wheezing Albuterol/Ipratropium (Duoneb (Albuterol 2.5 Mg/Ipratropium 0.5 Mg)) 1 neb INH Q4H PRN PRN Reason: SOB/WHEEZING Amlodipine Besylate (Norvasc Tab*) 10 mg PO DAILY [facility] Last Admin: 06/04/18 10:18 Dose: 10 mg Bacitracin (Bacitracin Ophth.Oint*) 1 applic BOTH EYES TID [facility] Last Admin: 06/04/18 17:12 Dose: 1 applic Dextrose (D50w Syringe 50 Ml*) 12.5 gm IV PUSH .FOR FS < 60 - SS PRN PRN Reason: FS < 60 Donepezil HCl (Aricept Tab*) 10 mg PO BEDTIME [facility] Last Admin: 06/03/18 20:25 Dose: 10 mg Doxycycline Hyclate (Vibramycin Cap(*)) 100 mg PO BID [facility] Duloxetine HCl (Cymbalta Cap*) 30 mg PO DAILY [facility] Last Admin: 06/04/18 10:18 Dose: 30 mg Guaifenesin (Mucinex*) 600 mg PO BID [facility] Last Admin: 06/04/18 10:19 Dose: Not Given Guaifenesin (Robitussin*) 10 ml PO Q4H PRN PRN Reason: COUGH Last Admin: 06/04/18 10:16 Dose: 10 ml Heparin Sodium (Porcine) (Heparin Flush Picc/Ml/Cvc(*)) 1 - 3 ml FLUSH 0600, 1800 [facility]; Protocol Last Admin: 06/04/18 18:29 Dose: 1 ml Heparin Sodium (Porcine) (Heparin Vial(*)) 5,000 units SUBCUT Q12H [facility] Last Admin: 06/04/18 17:16 Dose: 5,000 units Insulin Human Lispro (Humalog*) 0 units SUBCUT AC [facility]; Protocol Last Admin: 06/04/18 18:28 Dose: 3 units Memantine (Namenda Tab*) 10 mg PO DAILY [facility] Last Admin: 06/04/18 10:18 Dose: 10 mg Metoprolol Tartrate (Lopressor Tab*) 50 mg PO BID [facility] Last Admin: 06/04/18 10:18 Dose: 50 mg Nystatin (Nystatin Suspension*) 200,000 units PO QID [facility] Last Admin: 06/04/18 17:14 Dose: 200,000 units Nystatin (Nystatin Top Powder*) 1 applic TOPICAL BID [facility] Last Admin: 06/04/18 17:13 Dose: 1 applic Polyvinyl Alcohol (Polyvinyl Alcohol 1.4% Opth*) 1 drop LEFT EYE QID [facility] Last Admin: 06/04/18 17:14 Dose: 1 drop Prednisone (Deltasone Tab*) 30 mg PO DAILY [facility] Last Admin: 06/04/18 10:18 Dose: 30 mg Simethicone (Mylicon Tab*) 80 mg PO Q12H PRN PRN Reason: INDIGESTION Torsemide (Demadex*) 10 mg PO DAILY [facility] Valsartan (Diovan Tab*) 320 mg PO DAILY [facility] Last Admin: 06/04/18 10:18 Dose: 320 mg Vital Signs - 8 hr 06/04/18 15:30 Temperature 98.5 F Pulse Rate 59 Respiratory 24 Rate Blood Pressure 129/57 (mmHg) O2 Sat by Pulse 91 Oximetry Oxygen Devices in Use Now: Nasal Cannula Appearance: awake, cooporative during exam. no acute distress Eyes: No Scleral Icterus Ears/Nose/Mouth/Throat: Mucous Membranes Moist Neck: NL Appearance and Movements; NL JVP Respiratory: - - crakcle, expiratory wheezing Cardiovascular: NL Sounds; No Murmurs; No JVD Abdominal: NL Sounds; No Tenderness; No Distention Extremities: No Edema Neurological: Alert and Oriented x 3 Result Diagrams: 06/04/18 06:20 06/04/18 06:20 Additional Lab and Data: Laboratory Results - last 24 hr 05/29/18 05/30/18 05/30/18 17:02 05:45 05:45 WBC 11.3 H RBC 4.74 Hgb 14.0 Hct 43 MCV 91 MCH 30 MCHC 33 RDW 13 Plt Count 241 MPV 8.0 Neut % (Auto) 85.9 Lymph % (Auto) 8.9 Thurston % (Auto) 4.8 Eos % (Auto) 0.1 Baso % (Auto) 0.3 Absolute Neuts (auto) 9.7 H Absolute Lymphs (auto) 1.0 Absolute Monos (auto) 0.6 Absolute Eos (auto) 0 Absolute Basos (auto) 0 Absolute Nucleated RBC 0 Nucleated RBC % 0 Sodium 147 H Potassium 3.3 L Chloride 108 Carbon Dioxide 34 H Anion Gap 5 BUN 32 H Creatinine 0.96 H Est GFR ( Amer) 66.2 Est GFR (Non-Af Amer) 54.7 BUN/Creatinine Ratio 33.3 H Glucose 136 H POC Glucose (mg/dL) 256 H Calcium 9.7 Magnesium 2.3 05/30/18 05/30/18 08:19 12:06 WBC RBC Hgb Hct MCV MCH MCHC RDW Plt Count MPV Neut % (Auto) Lymph % (Auto) Thurston % (Auto) Eos % (Auto) Baso % (Auto) Absolute Neuts (auto) Absolute Lymphs (auto) Absolute Monos (auto) Absolute Eos (auto) Absolute Basos (auto) Absolute Nucleated RBC Nucleated RBC % Sodium Potassium Chloride Carbon Dioxide Anion Gap BUN Creatinine Est GFR ( Amer) Est GFR (Non-Af Amer) BUN/Creatinine Ratio Glucose POC Glucose (mg/dL) 112 H 209 H Calcium Magnesium Microbiology and Other Data: Microbiology 05/25/18 05:00 Blood Line Aerobic Blood Culture - Final No Growth Day 5 05/25/18 05:00 Blood Line Anaerobic Blood Culture - Final No Growth Day 5 05/21/18 13:21 Blood Venous Aerobic Blood Culture - Final No Growth Day 5 05/21/18 13:21 Blood Venous Anaerobic Blood Culture - Final No Growth Day 5 05/21/18 12:47 Blood Venous Aerobic Blood Culture - Final Staphylococcus Hominis 05/21/18 12:47 Blood Venous Anaerobic Blood Culture - Final Staphylococcus Hominis 05/21/18 12:47 Blood Venous Blood MRSA/MSSA (PCR) - Final Mrsa Negative S.aureus Negative 05/22/18 02:00 Urine Legionella Urinary Antigen - Final Negative Legionella Antigen 05/22/18 02:00 Urine Streptococcus pneumoniae Ag Screen - Final Negative S. pneumo Antigen 05/21/18 20:12 Nasal Nasal Screen MRSA (PCR) - Final Mrsa Not Detected 05/21/18 13:50 Nasopharyngeal Influenza Types A,B Antigen - Final Specimen received for Influenza A/B Molecular testing Assess/Plan/Problems-Billing Assessment: Ms. Guajardo is an 88 yo F with PMH of dementia, HTN, Type 2 DM, possible HFpEF, COPD; who presented in hypoxic resp failure with fever thought to be 2/2 to PNA. and COPD - Patient Problems (1) Acute CHF Current Visit: Yes Status: Acute Code(s): I50.9 - HEART FAILURE, UNSPECIFIED SNOMED Code(s): 26702543 Comment: - Continue low sodium diet - Echo 05/23 with EF 70%, LVH, possible HFpEF - s/p diuretic from 05/23 - 05/26. now on torsemide 20 mg QOD. Given her clinical lung exam I will place her on demadex 20 mg Daily (2) COPD exacerbation Current Visit: Yes Status: Acute Code(s): J44.1 - CHRONIC OBSTRUCTIVE PULMONARY DISEASE W (ACUTE) EXACERBATION SNOMED Code(s): 015890896 Comment: - With underlying pneumonia - Continue nebs, prednisone, Mucinex (3) Dementia Current Visit: Yes Status: Acute Code(s): F03.90 - UNSPECIFIED DEMENTIA WITHOUT BEHAVIORAL DISTURBANCE SNOMED Code(s): 16647604 Comment: - Continue Aricept, Namenda (4) Type II diabetes mellitus Current Visit: Yes Status: Acute Comment: - Glucose moderately elevated - Hold metformin; Continue Lispro SS (5) DVT prophylaxis Current Visit: Yes Status: Acute Code(s): GDY5537 - SNOMED Code(s): 963361540 Comment: -Given advanced age, will change Heparin to q12H (6) Pneumonia Current Visit: Yes Status: Acute Code(s): J18.9 - PNEUMONIA, UNSPECIFIED ORGANISM SNOMED Code(s): 186248438 Comment: - Blood culture positive for Staph hominis, repeat culture negative; reviewed rest of culture and Ag data and S. hominis only positive in 1 set of blood Cx; likely a contamination - Received azithromycin and ceftriaxone for 3 days, then was placed on Zosyn ( day 01/15) -Continue Doxycycline; Status and Disposition: -Possible D/C back to [facility] in AM
[2018-06-04] MEDS: DOXYcycline CAP(*) 100 MG PO SCH (21:36)
[2018-06-04] MEDS: Donepezil TAB* 5 MG PO SCH (21:36)
[2018-06-05] MEDS: Heparin VIAL(*) 5000 UNITS/ML VIAL (FIVE THOUSAND) SUBCUT SCH (05:33)
[2018-06-05 08:17] LABS: Hematocrit 42 % (35-47); Hemoglobin 13.5 g/dl (12.0-16.0); Mean Corpuscular HGB Conc 32 g/dl (31-36); Mean Corpuscular Hemoglobin 29 pg (27-31); Mean Corpuscular Volume 91 fL (80-97); Mean Platelet Volume 8.6 fL (7.4-10.4); Platelet Count 243 10^3/ul (150-450); Red Blood Count 4.62 10^6/ul (4.00-5.40); Red Cell Distribution Width 14 % (10.5-15); White Blood Count 12.7 10^3/ul (3.5-10.8)
[2018-06-05 08:23] LABS: BUN/Creatinine Ratio 36.5 (8-20); Calcium 9.9 mg/dL (8.6-10.3); EGFR African American 66.2 (>60); EGFR Non-African American 54.7 (>60); Magnesium 2.2 mg/dL (1.9-2.7); Phosphorus 3.3 mg/dL (2.5-5.0); Potassium 4.4 mmol/L (3.5-5.0)
[2018-06-05] MEDS: Insulin LISPRO* 1 UNITS UNIT SUBCUT SCH ×2 (08:27→13:34)
[2018-06-05] MEDS ORDERED: Torsemide TAB* 20 MG PO SCH (09:00)
[2018-06-05 09:19] LABS: ABS Basophils 0 10^3/ul (0-0.2); ABS Eosinophils 0 10^3/ul (0-0.6); ABS Lymphocytes 1.6 10^3/ul (1.0-4.8); ABS Monocytes 0.7 10^3/ul (0-0.8); ABS Neutrophils 10.3 10^3/ul (1.5-7.7); ABS Nucleated RBC 0 10^3/ul; Eosinophil % 0.3 %; Lymphocyte % 12.8 %; Nucleated Red Blood Cells % 0
[2018-06-05] MEDS: Metoprolol Tartrate TAB* 50 mg PO SCH (10:59)
[2018-06-05] MEDS: DOXYcycline CAP(*) 100 MG PO SCH (10:59)
[2018-06-05] MEDS: DULoxetine DR CAP* 30 MG CAP.DR PO SCH (10:59)
[2018-06-05] MEDS: predniSONE TAB* 10 MG PO SCH (10:59)
[2018-06-05] MEDS: amLODIPine TAB* 5 MG PO SCH (10:59)
[2018-06-05] MEDS: Artificial Tears* 15 ML BTL LEFT EYE SCH (11:05)
[2018-06-05] MEDS: guaiFENesin ER TAB 600 MG PO SCH (11:05)
[2018-06-05] MEDS: Memantine TAB* 10 MG PO SCH (11:05)
[2018-06-05] MEDS: Bacitracin OPHTH.OINT* 3.5 GM BOTH EYES SCH (11:05)
[2018-06-05] MEDS: Nystatin SUSPENSION* 100000 UNITS/ML 5 ML UDC PO SCH (11:06)
[2018-06-05] MEDS: Valsartan TAB* 160 MG PO SCH (11:08)
[2018-06-05] MEDS: Nystatin TOP POWDER* 15 GM BTL TOPICAL SCH (11:11)
[2018-06-05 12:21] VITALS: BP 129/58
--- NOTE | 2018-06-05 15:09 | DS ---
CC: Dr. Holley.* DISCHARGE SUMMARY: DATE OF ADMISSION: 05/21/18. DATE OF DISCHARGE: 06/05/18. PRIMARY CARE PROVIDER: Dr. Holley FINAL DISCHARGE DIAGNOSES: 1. Congestive heart failure, acute, diastolic. 2. Pneumonia. 3. Chronic obstructive pulmonary disease exacerbation. 4. Acute hypoxemic respiratory failure secondary to her chronic obstructive pulmonary disease exacerbation with underlying pneumonia and diastolic heart failure. 5. Hypertension. 6. Diabetes. 7. Dementia. HOSPITAL COURSE: The patient was admitted on 05/21/18 via the emergency room after she presented to the ER with altered mental status. She was transferred from [facility]. At the time, she was struggling to breathe, coughing, congested , increased respiratory distress, and decreased responsiveness. At the time, there was concern of a right facial droop. On the night of admission, [place] [address]. Negative flu swab A and B. Chest x-ray did show hyperinflation suggestive of COPD and CT of the brain did not show any acute pathology or bleed. Therefore, she was admitted. She was started on IV antibiotics Rocephin and azithromycin. On the following day she did have decompensation of her respiratory. She was transferred to the ICU, was placed on BiPAP, was given IV Lasix. 2D echo was performed which revealed ejection fraction of 65%. No significant valvular disease and she remains in ICU for the and on BiPAP as she could not tolerate the BiPAP being removed. She did respond fairly well with the diuretics and by the end of the day of the she was placed on 4 L nasal cannula, was maintained on antibiotic. Chest x-ray on 05/24/18 did confirm by pleural effusion and increased pulmonary interstitial edema consistent with pulmonary edema and congestive changes. Unfortunately, on the , despite the attempt to wean off the BiPAP failed, she remained on the BiPAP and hence the antibiotic was escalated to vancomycin and Zosyn for hospital acquired pneumonia and they had taken her off the azithromycin and Rocephin. The patient remains on IV Lasix, antibiotic was escalated and she was started on Zosyn on 05/24/18. The patient remains on Zosyn until 06/03/17 completed a 10-day of course of antibiotic. For broader spectrum and completion, she was added on doxycycline to continue coverage for atypical pneumonia. She did receive 3 days of Zithromax and she will continue a total of 7 days doxycycline as well p.o. Since the transition to IV antibiotic Zosyn she continued to improve and her oxygen demand declined down to 2 L and I did evaluate the patient yesterday on 06/04/18. Upon reviewing her chart and looking at the chest x-ray finding with the right lower lobe infiltrate, CT scan of the chest, rule out PE was examined, did not show any evidence of pneumonia, mild atelectasis, which requires incentive spirometer. I did require her on oxygen, attempted to wean her off to room air , she did decline to 88%, hence we will keep her on 2 L nasal cannula. I saw her today. She electively declined food. Ahmet rubalcava did see her and recommended mechanical ground textures, for which I will implement into her form. PHYSICAL EXAMINATION: Today on discharge, her vital signs, temperature 97.5, pulse 62, sating 100% on 2 L, blood pressure 136/53. Generally, she is awake, alert, responding. She electively declined oral intake. She is tolerating her mechanical texture diet well. Lungs: Good airflow, diminished at the right base, encouraged deep inspiration. Cardiovascular: S1 and S2, regular rate and rhythm. Abdomen: Soft and nontender. 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 Moist mucous membrane. DISCHARGE MEDICATIONS: 1. Tylenol 650 mg q.6 hours p.r.n. 2. Amlodipine 5 mg daily. 3. Bacitracin ointment to both eyes. 4. Hypromellose 15 mL drop to left eye. 5. Aricept 10 mg at bedtime. 6. Cymbalta 30 mg daily. 7. Vitamin D 90860 weekly. 8. Namenda 10 mg daily. 9. Metformin 500 mg daily. 10. B12 1000 mcg sublingual daily. 11. Toprol-XL 100 mg daily. 12. Simethicone 80 mg q. 12 hours p.r.n. for stomach cramp. 13. Diovan 160 mg daily. 14. DuoNeb q. 4 hours p.r.n. 15. Doxycycline 100 mg b.i.d. to complete 3 more days. 16. Robitussin p.r.n. 17. Prednisone tapered down to 20 mg daily for 3 days and 10 mg for 3 days and stop. 18. Torsemide 20 mg daily. DIAGNOSTIC STUDY: Blood cultures on admission, she had 1 blood culture positive for Staphylococcus hominis. Repeat blood culture was negative x4 sets. MRSA was negative. Negative legionella and pneumonia. Influenza A and B negative. CT of brain on admission on 05/21/18 was chronic findings, no acute disease or bleeds. A 2D echo 05/22/18, pertinent for EF of 70%. Chest x-rays, multiple of them consistent with congestive changes and right pleural lobe infiltrate and right pleural effusion. CT scan of the chest was negative for PE. DISCHARGE INSTRUCTIONS: The patient to follow up with the primary care and the facility. Take all medication as prescribed in a soft textures with aspiration precaution. Oxygen 2 L via nasal canula. Encouraged incentive spirometry, physical therapy and participation with out of bed. Total time spent on discharge 40 mins [id number]/[facility] #: [id number] MTDD
== END 2018-06-05 15:15 | DRG 193 ==
LOC: ED 12:46 → MED 17:09 → ICU 05-22 15:04 → MED 05-26 17:35
PROVIDERS: ADMIT Internal Medicine; ATTEND Internal Medicine
PROC: 5A09357 Assistance with Respiratory Ventilation, Less than 24 Consecutive Hours, Continuous Positive Airway Pressure (ICD-10-PCS; principal; 2018-05-22)
DX: J18.9 Pneumonia, unspecified organism (principal); I50.31 Acute diastolic (congestive) heart failure; J96.01 Acute respiratory failure with hypoxia; J44.0 Chronic obstructive pulmonary disease with (acute) lower respiratory infection; J44.1 Chronic obstructive pulmonary disease with (acute) exacerbation; E87.0 Hyperosmolality and hypernatremia; R29.810 Facial weakness; F03.90 Unspecified dementia, unspecified severity, without behavioral disturbance, psychotic disturbance, mood disturbance, and anxiety; E11.9 Type 2 diabetes mellitus without complications; I48.91 Unspecified atrial fibrillation; L24.9 Irritant contact dermatitis, unspecified cause; I27.20 Pulmonary hypertension, unspecified; Z66 Do not resuscitate; I11.0 Hypertensive heart disease with heart failure; Z86.73 Personal history of transient ischemic attack (TIA), and cerebral infarction without residual deficits; Z79.84 Long term (current) use of oral hypoglycemic drugs; Z85.828 Personal history of other malignant neoplasm of skin; E86.0 Dehydration; R19.7 Diarrhea, unspecified; Z51.5 Encounter for palliative care
CPT/HCPCS: 36415; 36600; 70450; 71045; 71046; 71275; 80048; 80053; 81003; 82803; 83605; 83735; 83880; 84100; 84484; 85025; 85027; 86141; 87040; 87077; 87150; 87205; 87641; 87899; 93005; 93306; 94660; 99284; A9270-GY; G8978-GP-CM; G8979-GP-CK; G8987-GO-CM; G8988-GO-CK; J0456; J0696; J1644; J1940; J2543; J2920; J2930; J7512; J7611; Q9967